=== PATIENT | female | born 1955 | race Two or more races ===

== ENCOUNTER 2018-12-15 12:00 | Inpatient (IN) | payer MEDICAID ==
[~2018-12-15] VITALS: Ht 165.1 cm; Wt 85.7 kg
[2018-12-15] VITALS (25 sets, daily range): BP systolic 81–134; BP diastolic 40–103
[~2018-12-15 12:00] MED LIST: ALBUTEROL2.5 MG/3 M INH; AMIKACIN S500 MG/2 M IVPB; CEFEPIME-D1 GM/50 ML IVPB; CLINDAMYCIN HC300 MG ORAL; COLACE100 MG/10 GT; CRANBERRY425 MG GT; DEPAKENE250 MG ORAL; DILANTIN-1125 MG/5 M GT; DIPHENHYDRAMINE25 M1 ORAL; DOCUSATE SODIU100 MG ORAL; DULCOLAX10 MG RC; FLEET ENEMA133 ML RECTAL; FOLIC ACID1 MG GT; KEPPRA500 M4 GT; LEVETIRACE100 MG/1 M GT; METOPROLOL TART50 M1 GT; METRONIDAZOLE500 MG ORAL; MILK OF MA400 MG/51 GT; MOM30 ML GT; MULTIVITAM9 MG/15 M1 GT; NEXIUM20 MG GT; NEXIUM40 MG GT; OMEPRAZOLE10 M1 GT; PHENOBARBITAL30 MG GT; PRO-AMATINE10 MG ORAL; PROMOD946 ML GT; SYNTHROID100 MCG GT; TYLENOL650 MG/20. GT; VALPROIC A500 MG/10 GT; VANCOMYCIN1 GM/2502 IVPB; VITAMIN C250 MG GT; VITAMIN C500 M1 GT; ZINC SULFATE220 M1 GT
[2018-12-15] MEDS ORDERED: Vancomycin 1.5 GM in NS 275 ML IVPB ONE (12:30)
[2018-12-15] MEDS ORDERED: Sodium Chloride 2,600 ML IVLG ONE (12:30)
[2018-12-15] MEDS ORDERED: Cefepime HCl 2 GM in NS 110 ML IV SCH (12:30)
[2018-12-15] MEDS ORDERED: Lidocaine 1% Plain 30 ml INJ ONE ×2 (12:37→12:38)
[2018-12-15 12:38] LABS: HEMATOCRIT 40.9 % (37.0-47.0); HEMOGLOBIN 13.4 G/DL (12.0-16.0); MEAN CORPUSCULAR VOLUME 91 FL (80-99); PLATELET COUNT 177 K/UL (150-450); RED BLOOD COUNT 4.49 M/UL (4.20-5.40); RED CELL DISTRIBUTION WIDTH 13.2 % (11.6-14.8); WHITE BLOOD COUNT 18.2 K/UL (4.8-10.8)
[2018-12-15 12:44] LABS: INR 0.9 (0.9-1.1)
[2018-12-15 12:53] LABS: ANION GAP 9 mmol/L (5-15); BLOOD UREA NITROGEN 15 mg/dL (7-18); CARBON DIOXIDE 27 MMOL/L (21-32); CHLORIDE 95 MMOL/L (98-107); CREATININE 0.9 MG/DL (0.55-1.30); POTASSIUM 3.9 MMOL/L (3.5-5.1); SODIUM 131 MMOL/L (136-145)
[2018-12-15 13:07] LABS: ALANINE AMINOTRANSFERASE 30 U/L (12-78); ALBUMIN 2.4 G/DL (3.4-5.0); ALBUMIN/GLOBULIN RATIO 0.4 (1.0-2.7); ALKALINE PHOSPHATASE 93 U/L (46-116); ASPARTATE AMINO TRANSFERASE 34 U/L (15-37); BILIRUBIN,TOTAL 0.3 MG/DL (0.2-1.0); CKMB < 0.5 NG/ML (0.0-3.6); CREATINE KINASE 70 U/L (26-308); PHOSPHORUS 2.1 MG/DL (2.5-4.9)
--- NOTE | 2018-12-15 13:08 | Emergency Room Report ---
History of Present Illness General Chief Complaint: Fever Source: EMS Present Illness HPI Patient is a 63-year-old female brought in by ambulance after increased fever and abdominal redness. Patient was noted to have prior history of chronic respiratory failure and tracheostomy tube as well as encephalopathy. Patient was noted to have temperature up to 102.3 at her facility associated with cellulitis area on the posterior trunk as well as the bilateral lower extremities. Patient was given Tylenol at 8 AM. Patient had been sent to the hospital for further evaluation of possible sepsis. 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, VRE Hx Neurological Problems: Yes Hx Cerebrovascular Accident: Yes Hx Seizures: Yes Hx Memory Loss: Yes Hx Concentration Difficulty: Yes Hx Speech Problem: Yes Hx Tremors: Yes Hx Vertigo: Yes Hx Dizziness: Yes Hx Syncope: Yes Hx Headaches: Yes Hx Dysphasia: Yes Hx Numbness: Yes Hx Weakness: Yes Hx Fatigue: Yes Review of Systems All Other Systems: negative except mentioned in HPI Physical Exam Vital Signs Date Time Temp Pulse Resp B/P (MAP) Pulse Ox O2 Delivery O2 Flow Rate FiO2 12/15/18 11:46 99.5 78 18 95 Trach Collar 5.0 General Appearance: obese, Chronically Ill ENT: moist mucus membranes, other - aphasic Neck: no bony tend, limited range of motion Respiratory: no retraction, rhonchi, other - shallow respirations Cardiovascular #1: regular rate, rhythm, edema - 1+ Gastrointestinal: soft, no guarding, no hernia, other - erythema to skin Genitourinary: no CVA tenderness Musculoskeletal: normal inspection, normal range of motion 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 Total critical care time excluding procedures approximately 45 minutes. Central Line Central Line : Consent: Emergent Central Line Lumen: triple Maximal Sterile Barrier Tech: yes cap, yes mask, yes sterile gown, yes sterile gloves, yes large sterile sheet, yes hand hygiene, yes chlorhexidine prep Central Line Postion: subclavian (R) Anesthesia: Lidocaine cc's of anesthesia: 4 Complications: none Central Line Post Position: sutured, good blood return, position confirmed w / CXR Attempts: Other - two Patient Tolerated: Well Complications: None Medical Decision Making Diagnostic Impression: Primary Impression: Severe sepsis Additional Impressions: Traumatic brain injury Pressure ulcer Chronic respiratory failure Abdominal wall cellulitis ER Course patient presented for fever and abdominal wall redness. Differential diagnosis include was not limited to cellulitis, necrotizing fasciitis, abdominal wall abscess among others. Because of complexity of patient's case laboratory testing and imaging studies were ordered. 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 Fever likely source appears to be the abdominal wall cellulitis. A CT the abdomen pelvis was ordered to evaluate for possible abdominal wall abscess or internal infection. Patient was given IV antibiotics and IV fluids due to hypotension. I placed a right central subclavian central line emergently due to lack of IV access and hypotension. Dr. Seb Mike was contacted for inpatient management. Labs Test 12/15/18 12:21 White Blood Count 18.2 K/UL (4.8-10.8) Red Blood Count 4.49 M/UL (4.20-5.40) Hemoglobin 13.4 G/DL (12.0-16.0) Hematocrit 40.9 % (37.0-47.0) Mean Corpuscular Volume 91 FL (80-99) Mean Corpuscular Hemoglobin 29.9 PG (27.0-31.0) Mean Corpuscular Hemoglobin Concent 32.8 G/DL (32.0-36.0) Red Cell Distribution Width 13.2 % (11.6-14.8) Platelet Count 177 K/UL (150-450) Mean Platelet Volume 10.3 FL (6.5-10.1) Neutrophils (%) (Auto) % (45.0-75.0) Lymphocytes (%) (Auto) % (20.0-45.0) Monocytes (%) (Auto) % (1.0-10.0) Eosinophils (%) (Auto) % (0.0-3.0) Basophils (%) (Auto) % (0.0-2.0) Differential Total Cells Counted 100 Neutrophils % (Manual) 66 % (45-75) Lymphocytes % (Manual) 12 % (20-45) Monocytes % (Manual) 13 % (1-10) Eosinophils % (Manual) 0 % (0-3) Basophils % (Manual) 0 % (0-2) Band Neutrophils 9 % (0-8) Platelet Estimate Adequate Platelet Morphology Normal Red Blood Cell Morphology Normal Prothrombin Time 10.0 SEC (9.30-11.50) Prothromb Time International Ratio 0.9 (0.9-1.1) Activated Partial Thromboplast Time 28 SEC (23-33) Sodium Level 131 MMOL/L (136-145) Potassium Level 3.9 MMOL/L (3.5-5.1) Chloride Level 95 MMOL/L (98-107) Carbon Dioxide Level 27 MMOL/L (21-32) Anion Gap 9 mmol/L (5-15) Blood Urea Nitrogen 15 mg/dL (7-18) Creatinine 0.9 MG/DL (0.55-1.30) Estimat Glomerular Filtration Rate > 60 mL/min (>60) Glucose Level 140 MG/DL (74-106) Calcium Level 9.0 MG/DL (8.5-10.1) Troponin I 0.000 ng/mL (0.000-0.056) EKG Diagnostic Results Rate: normal - 77 Rhythm: NSR ST Segments: no acute changes Last Vital Signs Date Time Temp Pulse Resp B/P (MAP) Pulse Ox O2 Delivery O2 Flow Rate FiO2 12/15/18 12:22 72 22 Trach Collar 15.0 12/15/18 11:46 99.5 95 Status: improved Disposition: ADMITTED INPATIENT Condition: Critical Referrals: Leigh Ch MD (PCP) Daniel Wong MD December 15, 2018 13:07
--- NOTE | 2018-12-15 13:14 | Diagnostic Imaging Report ---
Indication: Dyspnea Comparison: 02/16/2017 A single view chest radiograph was obtained. Findings: Tracheostomy again noted. There is a right subclavian line in good position with the tip at the junction of SVC right atrium. There is no pneumothorax. Basilar atelectasis is noted and mild. Bones are osteopenic. IMPRESSION: Mild basal atelectasis.
[2018-12-15] MEDS ORDERED: Isovue-300 100ml vial INJ PRN (13:15)
[2018-12-15] MEDS ORDERED: Albuterol/Ipratropium 3ml neb HHN PRN (14:00)
[2018-12-15] MEDS ORDERED: Morphine Sulfate 2mg/ml Inj(IV/IM USE ONLY) IVP PRN (14:00)
[2018-12-15] MEDS ORDERED: Miralax 17gm pkt ORAL PRN (14:00)
[2018-12-15 14:23] LABS: APPEARANCE,URINE CLEAR; BILIRUBIN, URINE NEGATIVE (NEGATIVE); GLUCOSE, URINE (UA) NEGATIVE (NEGATIVE); KETONES,URINE NEGATIVE (NEGATIVE); LEUKOCYTE ESTERASE ,URINE 1+ (NEGATIVE); NITRITE,URINE NEGATIVE (NEGATIVE); PH,URINE 7 (4.5-8.0); PROTEIN,URINE 3+ (NEGATIVE); UROBILINOGEN,URINE NORMAL MG/DL (0.0-1.0)
[2018-12-15 14:29] LABS: COLOR,URINE YELLOW
--- NOTE | 2018-12-15 16:08 | Diagnostic Imaging Report ---
Indication: Abdominal pain Technique: Continuous helical transaxial imaging of the abdomen and pelvis was obtained from the lung bases to the pubic symphysis during intravenous contrast administration. Coronal 2-D reformats were also obtained. Study obtained in a Siemens sensation [address] Automatic Exposure Control was utilized. Total Dose length Product (DLP): [address] Dose Index Volume (CTDIvol): 0.15, 19.51 mGy Comparison: 01/10/2015 Findings: There is consolidation at the lung bases bilaterally. Trace bilateral pleural effusions are present. There is considerable artifact limiting evaluation of the lower chest and upper abdomen. Calcifications are seen within the spleen. Pancreas is grossly unremarkable. Questionable gallstone. Gallbladder is mildly distended. Punctate calcification noted within the right kidney which may be a small stone. There is no hydronephrosis. Gastrostomy is present in good position. The appendix is not definitely seen. There are no secondary signs of acute appendicitis. Appendix may have been removed. Aortoiliac calcifications are present. There is no free fluid or free air. There is no evidence of bowel obstruction. Atrophic heterogeneous uterus noted. Small inguinal nodes are present bilaterally. There is a implanted calvarial bone flap demonstrated within the subcutaneous fat of the right lower quadrant abdomen wall. IMPRESSION: Patchy posterior basilar consolidation. Consider pneumonia. Small bilateral pleural effusions noted. Artifact limiting evaluation of the upper abdomen. Possible tiny nonobstructive stone in the right kidney. Gastrostomy in good position. Question of a tiny gallstone. Heterogeneous uterus nonspecific Calvarial bone flap in the right lower quadrant of the abdomen. The CT scanner at [facility] is accredited by the [employer] and the scans are performed using dose optimization techniques as appropriate to a performed exam including Automatic Exposure control.
[2018-12-15] MEDS: Norepinephrine 4mg in D5W 250ml IV SCH ×2 (19:29→22:15)
[2018-12-15] MEDS: Dyna-Hex 2% Top Sol 2oz TOPIC SCH (20:16)
[2018-12-15] MEDS: Heparin 5000 units/ml inj SUBQ SCH (20:17)
[2018-12-16] VITALS (52 sets, daily range): BP systolic 83–129; BP diastolic 44–84
--- NOTE | 2018-12-16 | History and Physical Report ---
DATE OF ADMISSION: 12/15/2018 CONSULTANTS: 1. Leigh Ch M.D. 2. Valentin Mejia M.D. 3. Vaughn Sahu M.D. CHIEF COMPLAINT: Respiratory failure, fever, sepsis, abdominal cellulitis, and shock. BRIEF HISTORY: This is a 63-year-old female from [facility] presents with fever, was found to have sepsis, white count 18, abdominal cellulitis, in the ER, being admitted to intensive care unit shortly. Currently, trach, vent, altered, lethargic in bed in the ER. REVIEW OF SYSTEMS: Unavailable. PAST MEDICAL HISTORY: Respiratory failure, chronic obstructive pulmonary disease, diabetes, seizure, and traumatic brain injury. PAST SURGICAL HISTORY: Trach. MEDICATIONS: Include cefepime, vancomycin, heparin, norepinephrine, Tylenol, morphine, Zofran, and temazepam. ALLERGIES: Denies. SOCIAL HISTORY: No smoking. No alcohol. No drug abuse. OBJECTIVE: GENERAL: Lethargic in bed, nonverbal. VITAL SIGNS: Temperature is 99, pulse 78, respirations 29, and blood pressure 97/52 to 70/37. CARDIOVASCULAR: No murmurs. LUNGS: Poor air exchange. ABDOMEN: Bowel sounds distant. EXTREMITIES: Show no cyanosis, clubbing, or edema. NEUROLOGIC: The patient is flaccid in bed. Not following directions. LABORATORY AND DIAGNOSTIC STUDIES: White count 18, otherwise CBC is normal. BMP shows sodium 131, chloride 95, and glucose 140. Troponin 0.00. is 8.3. BNP is 360. Albumin 2.4. INR 0.9 and PTT 28. Urine tox, phenobarb is 15.8. Urinalysis show 1+ leukocyte esterase. ASSESSMENT: 1. Respiratory failure. 2. UTI. 3. Sepsis. 4. Shock. 5. Fever. 6. Leukocytosis. 7. Respiratory failure. 8. Trach and vent. 9. Malnutrition. 10. Abdominal cellulitis. 11. Chronic obstructive pulmonary disease. 12. Diabetes. 13. Seizure. 14. Traumatic brain injury. PLAN: 1. Vent per Pulmonary. 2. Antibiotics per Infectious Disease. 3. Wound care. 4. Blood pressure, blood sugar, and seizure control. 5. Dietary followup. 6. CBC and BMP in the morning. 7. We will continue to follow the patient. Seb Mike D.O. DR: OLIVIER JOB#: [id number] CC:
[2018-12-16] MEDS: Cefepime HCl 2 GM in D5W 110 ML IV SCH (00:17)
[2018-12-16] MEDS ORDERED: Vancomycin 1 GM in D5W 275 ML IV SCH (00:30)
[2018-12-16] MEDS: Vancomycin 750mg/NS 275ml IVPB SCH ×4 (00:58→13:40)
[2018-12-16 05:26] LABS: HEMATOCRIT 36.8 % (37.0-47.0); MEAN CORPUSCULAR VOLUME 93 FL (80-99); PLATELET COUNT 154 K/UL (150-450); RED BLOOD COUNT 3.98 M/UL (4.20-5.40); RED CELL DISTRIBUTION WIDTH 13.4 % (11.6-14.8); WHITE BLOOD COUNT 18.4 K/UL (4.8-10.8)
[2018-12-16 05:39] LABS: ALANINE AMINOTRANSFERASE 27 U/L (12-78); ALBUMIN 1.9 G/DL (3.4-5.0); ALBUMIN/GLOBULIN RATIO 0.4 (1.0-2.7); ALKALINE PHOSPHATASE 92 U/L (46-116); ANION GAP 9 mmol/L (5-15); ASPARTATE AMINO TRANSFERASE 30 U/L (15-37); BILIRUBIN,TOTAL 0.4 MG/DL (0.2-1.0); BLOOD UREA NITROGEN 9 mg/dL (7-18); CARBON DIOXIDE 26 MMOL/L (21-32); CHLORIDE 101 MMOL/L (98-107); CREATININE 0.7 MG/DL (0.55-1.30); POTASSIUM 3.7 MMOL/L (3.5-5.1); SODIUM 136 MMOL/L (136-145)
[2018-12-16] MEDS: Norepinephrine 4mg in D5W 250ml IV SCH (05:50)
[2018-12-16] MEDS: Heparin 5000 units/ml inj SUBQ SCH ×2 (09:42→20:25)
--- NOTE | 2018-12-16 10:40 | Consultation ---
History of Present Illness General Date patient seen: December 16, 2018 Chief Complaint: Fever Present Illness HPI 63-year-old female with hx of vegetative state, anoxic encephalopathy, chronic vent, PEG, prison resident brought in by ambulance with cc of fever and abdominal redness. She had a temperature up to 102.3 at her facility associated with cellulitis area on the posterior trunk as well as the bilateral lower extremities. Patient was sent to the hospital for further evaluation of possible sepsis. She was hypotensive on arrival and was started on Levophed drip. Allergies: Coded Allergies: No Known Allergies (Unverified , 04/14/14) Medication History Scheduled Ascorbic Acid* (Vitamin C*), 500 MG GT DAILY, (Reported) Cefepime Hcl/D5w (Cefepime-Dextrose 1 Gm/50 Ml), 1 GM IVPB EVERY 12 HOURS Cranberry Extract (Cranberry), 425 MG GT DAILY, (Reported) Docusate Sodium (Docusate Sodium), 100 MG GT DAILY, (Reported) Esomeprazole Magnesium (Nexium), 40 MG GT DAILY, (Reported) Folic Acid* (Folic Acid*), 1 MG GT DAILY, (Reported) Levetiracetam (Keppra), 1,500 MG GT EVERY 12 HOURS, (Reported) Levothyroxine Sodium* (Synthroid*), 100 MCG GT DAILY, (Reported) Magnesium Hydroxide* (Milk Of Magnesia*), 30 ML GT DAILY, (Reported) Midodrine (Midodrine HCl), 10 MG ORAL TID, (Reported) Multivits W-Min/Ferrous Gluc (Multivitamin-Mineral Liquid), 30 ML GT DAILY, ( Reported) Na Phos,M-B/Na Phos,Di-Ba* (Fleet Enema*), 133 ML RECTAL DAILY, (Reported) Phenobarbital* (Phenobarbital*), 40 MG GT EVERY 12 HOURS, (Reported) Protein Supplement (Promod), 30 ML GT TWICE A DAY, (Reported) Valproate Sodium (Valproic Acid), 800 MG GT EVERY 8 HOURS, (Reported) Zinc Sulfate (Zinc Sulfate*), 220 MG GT DAILY, (Reported) Scheduled PRN Acetaminophen (Acetaminophen), 650 MG GT Q6H PRN for Prn Headache/Temp > 101, ( Reported) Albuterol Sulfate* (Albuterol Sulfate Hhn*), 3 ML INH Q6H PRN for Shortness of Breath, (Reported) Diphenhydramine Hcl* (Diphenhydramine Hcl*), 50 MG ORAL DAILY PRN for Itching, ( Reported) Miscellaneous Medications Bisacodyl (Dulcolax), 10 MG RC, (Reported) Patient History Healthcare decision maker Resuscitation status Advanced Directive on File Past Medical/Surgical History Past Medical/Surgical History: (1) Hypothyroidism (2) COPD (chronic obstructive pulmonary disease) (3) Seizure disorder (4) Tracheostomy dependent (5) Chronic respiratory failure Review of Systems All Other Systems: negative except mentioned in HPI Physical Exam General Appearance: WD/WN Lines, tubes and drains: trach, gtube HEENT: normocephalic, atraumatic Neck: non-tender, normal alignment Respiratory/Chest: chest wall non-tender, lungs clear Cardiovascular/Chest: normal rate Abdomen: normal bowel sounds, non tender Genitourinary/Rectal: normal genital exam Extremities: normal range of motion Skin Exam: normal pigmentation Neurologic: unresponsiveness Last 24 Hour Vital Signs Date Time Temp Pulse Resp B/P (MAP) Pulse Ox O2 Delivery O2 Flow Rate FiO2 12/16/18 09:00 86 30 111/62 (78) 100 12/16/18 08:30 98.9 92 38 121/64 (83) 100 12/16/18 08:00 97 12/16/18 08:00 12.0 40 12/16/18 08:00 T-piece 12.0 12/16/18 08:00 88 32 99/52 (68) 100 12/16/18 07:30 100.6 94 28 100/52 (68) 100 12/16/18 07:00 114/63 12/16/18 07:00 90 35 108/63 (78) 100 12/16/18 06:50 100 T-piece 12.0 40 12/16/18 06:50 T-piece 12.0 40 12/16/18 06:50 96 30 T-piece 12.0 40 12/16/18 06:30 75 26 90/50 (63) 100 12/16/18 06:00 87 33 112/48 (69) 100 12/16/18 06:00 112/48 12/16/18 05:50 106/56 12/16/18 05:30 81 26 106/56 (73) 97 12/16/18 05:00 80 35 110/58 (75) 95 12/16/18 04:30 71 33 106/60 (75) 100 12/16/18 04:00 12.0 40 12/16/18 04:00 T-piece 12.0 12/16/18 04:00 79 12/16/18 04:00 99.6 71 27 105/60 (75) 100 12/16/18 03:30 72 32 107/61 (76) 100 12/16/18 03:15 76 31 114/61 (78) 100 12/16/18 03:00 84 20 129/63 (85) 97 12/16/18 02:30 57 30 87/44 (58) 98 12/16/18 02:00 67 35 93/47 (62) 97 12/16/18 02:00 97/47 12/16/18 01:30 67 34 92/48 (63) 97 12/16/18 01:24 T-piece 12.0 40 12/16/18 01:24 98 T-piece 12.0 40 12/16/18 01:24 70 20 T-piece 12.0 40 12/16/18 01:00 76 24 102/53 (69) 97 12/16/18 01:00 83/46 12/16/18 00:30 76 26 84/50 (61) 92 12/16/18 00:00 12.0 40 12/16/18 00:00 84/50 12/16/18 00:00 99.4 64 30 83/48 (60) 94 12/16/18 00:00 71 12/16/18 00:00 T-piece 12.0 12/15/18 23:30 76 36 92/56 (68) 94 12/15/18 23:00 90/46 12/15/18 23:00 65 26 81/42 (55) 99 12/15/18 22:53 99.5 12/15/18 22:30 68 26 83/44 (57) 100 12/15/18 22:15 73 26 94/78 (83) 100 12/15/18 22:15 86/46 12/15/18 22:00 100.2 66 25 86/46 (59) 100 12/15/18 21:30 68 23 99/51 (67) 100 12/15/18 21:00 65 28 84/40 (55) 100 12/15/18 21:00 84/51 12/15/18 20:30 73 29 108/46 (66) 100 12/15/18 20:00 99.9 67 28 120/103 (109) 100 12/15/18 20:00 12.0 40 12/15/18 20:00 93/55 12/15/18 20:00 63 12/15/18 19:45 T-piece 12.0 12/15/18 19:30 72 29 107/63 (78) 100 12/15/18 19:29 90/60 12/15/18 19:15 84 25 113/60 (77) 99 12/15/18 19:14 100 T-piece 12.0 40 12/15/18 19:14 T-piece 12.0 40 12/15/18 19:00 95/50 12/15/18 19:00 64 27 95/50 (65) 100 12/15/18 18:30 67 23 118/65 (82) 100 12/15/18 18:00 66 25 96/48 (64) 100 12/15/18 18:00 96/48 12/15/18 17:45 67 26 96/52 (67) 100 12/15/18 17:31 95 20 T-piece 12.0 40 12/15/18 17:31 T-piece 12.0 40 12/15/18 17:31 100 T-piece 12.0 40 12/15/18 17:30 70 27 113/50 (71) 100 12/15/18 17:30 69 25 113/50 (71) 100 12/15/18 17:15 90 19 134/59 (84) 99 12/15/18 17:00 67 22 107/58 (74) 100 12/15/18 17:00 107/58 12/15/18 16:45 72 23 105/60 (75) 100 12/15/18 16:30 82 27 110/61 (77) 100 12/15/18 16:18 98.7 86 32 83/49 (60) 100 12/15/18 16:00 83/49 12/15/18 16:00 12.0 40 12/15/18 16:00 Endotracheal Tube 10.0 12/15/18 15:54 99.2 74 24 97/52 100 Trach Collar 10.0 12/15/18 15:44 97/50 12/15/18 15:29 98/58 12/15/18 15:24 92/63 12/15/18 15:19 86/45 12/15/18 15:14 93/48 12/15/18 15:09 100/54 12/15/18 15:04 89/40 12/15/18 15:00 74 24 91/57 100 Trach Collar 10.0 12/15/18 14:59 91/57 12/15/18 14:54 71/37 12/15/18 14:49 78/37 12/15/18 14:00 78 29 97/52 100 Trach Collar 10.0 12/15/18 13:00 71 30 93/46 100 Trach Collar 10.0 12/15/18 12:22 72 22 Trach Collar 15.0 12/15/18 12:00 99.2 74 36 99/60 96 Trach Collar 10.0 12/15/18 11:46 99.5 78 18 95 Trach Collar 5.0 Intake and Output 12/15/18 12/16/18 19:00 07:00 Intake Total 3105 ml 1270.0 ml Output Total 120 ml 640 ml Balance 2985 ml 630.0 ml Intake Free Water 150 ml IV Total 3105 ml 760.0 ml Tube Feeding 360 ml Output Urine Total 120 ml 640 ml # Voids 2 # Bowel Movements 1 Laboratory Tests Test 12/15/18 12:21 12/15/18 13:15 12/15/18 13:28 12/16/18 04:50 White Blood Count 18.2 K/UL (4.8-10.8) H 18.4 K/UL (4.8-10.8) H Red Blood Count 4.49 M/UL (4.20-5.40) 3.98 M/UL (4.20-5.40) L Hemoglobin 13.4 G/DL (12.0-16.0) 12.0 G/DL (12.0-16.0) Hematocrit 40.9 % (37.0-47.0) 36.8 % (37.0-47.0) L Mean Corpuscular Volume 91 FL (80-99) 93 FL (80-99) Mean Corpuscular Hemoglobin 29.9 PG (27.0-31.0) 30.3 PG (27.0-31.0) Mean Corpuscular Hemoglobin Concent 32.8 G/DL (32.0-36.0) 32.7 G/DL (32.0-36.0) Red Cell Distribution Width 13.2 % (11.6-14.8) 13.4 % (11.6-14.8) Platelet Count 177 K/UL (150-450) 154 K/UL (150-450) Mean Platelet Volume 10.3 FL (6.5-10.1) H 8.6 FL (6.5-10.1) Neutrophils (%) (Auto) % (45.0-75.0) % (45.0-75.0) Lymphocytes (%) (Auto) % (20.0-45.0) % (20.0-45.0) Monocytes (%) (Auto) % (1.0-10.0) % (1.0-10.0) Eosinophils (%) (Auto) % (0.0-3.0) % (0.0-3.0) Basophils (%) (Auto) % (0.0-2.0) % (0.0-2.0) Differential Total Cells Counted 100 100 Neutrophils % (Manual) 66 % (45-75) 80 % (45-75) H Lymphocytes % (Manual) 12 % (20-45) L 9 % (20-45) L Monocytes % (Manual) 13 % (1-10) H 10 % (1-10) Eosinophils % (Manual) 0 % (0-3) 0 % (0-3) Basophils % (Manual) 0 % (0-2) 0 % (0-2) Band Neutrophils 9 % (0-8) H 1 % (0-8) Platelet Estimate Adequate Adequate Platelet Morphology Normal Normal Red Blood Cell Morphology Normal Normal Prothrombin Time 10.0 SEC (9.30-11.50) Prothromb Time International Ratio 0.9 (0.9-1.1) Activated Partial Thromboplast Time 28 SEC (23-33) Sodium Level 131 MMOL/L (136-145) L 136 MMOL/L (136-145) Potassium Level 3.9 MMOL/L (3.5-5.1) 3.7 MMOL/L (3.5-5.1) Chloride Level 95 MMOL/L (98-107) L 101 MMOL/L (98-107) Carbon Dioxide Level 27 MMOL/L (21-32) 26 MMOL/L (21-32) Anion Gap 9 mmol/L (5-15) 9 mmol/L (5-15) Blood Urea Nitrogen 15 mg/dL (7-18) 9 mg/dL (7-18) Creatinine 0.9 MG/DL (0.55-1.30) 0.7 MG/DL (0.55-1.30) Estimat Glomerular Filtration Rate > 60 mL/min (>60) > 60 mL/min (>60) Glucose Level 140 MG/DL (74-106) H 158 MG/DL (74-106) H Lactic Acid Level 1.90 mmol/L (0.4-2.0) Calcium Level 9.0 MG/DL (8.5-10.1) 8.0 MG/DL (8.5-10.1) L Phosphorus Level 2.1 MG/DL (2.5-4.9) L Magnesium Level 2.3 MG/DL (1.8-2.4) Total Bilirubin 0.3 MG/DL (0.2-1.0) 0.4 MG/DL (0.2-1.0) Aspartate Amino Transf (AST/SGOT) 34 U/L (15-37) 30 U/L (15-37) Alanine Aminotransferase (ALT/SGPT) 30 U/L (12-78) 27 U/L (12-78) Alkaline Phosphatase 93 U/L (46-116) 92 U/L (46-116) Total Creatine Kinase 70 U/L (26-308) Creatine Kinase MB < 0.5 NG/ML (0.0-3.6) Creatine Kinase MB Relative Index Troponin I 0.000 ng/mL (0.000-0.056) Pro-B-Type Natriuretic Peptide 360 pg/mL (0-125) H Total Protein 8.3 G/DL (6.4-8.2) H 6.9 G/DL (6.4-8.2) Albumin 2.4 G/DL (3.4-5.0) L 1.9 G/DL (3.4-5.0) L Globulin 5.9 g/dL 5.0 g/dL Albumin/Globulin Ratio 0.4 (1.0-2.7) L 0.4 (1.0-2.7) L Phenobarbital Level 15.8 ug/mL (15-40) Arterial Blood pH 7.458 (7.350-7.450) Arterial Blood Partial Pressure CO2 35.7 mmHg (35.0-45.0) Arterial Blood Partial Pressure O2 280.1 mmHg (75.0-100.0) H Arterial Blood HCO3 24.7 mmol/L (22.0-26.0) Arterial Blood Oxygen Saturation 99.2 % (95-100) Arterial Blood Base Excess 1.1 (-2-2) Bennie Test Positive Urine Color Yellow Urine Appearance Clear Urine pH 7 (4.5-8.0) Urine Specific [place] 1.005 (1.005-1.035) Urine Protein 3+ (NEGATIVE) H Urine Glucose (UA) Negative (NEGATIVE) Urine Ketones Negative (NEGATIVE) Urine Blood 4+ (NEGATIVE) H Urine Nitrite Negative (NEGATIVE) Urine Bilirubin Negative (NEGATIVE) Urine Urobilinogen Normal MG/DL (0.0-1.0) Urine Leukocyte Esterase 1+ (NEGATIVE) H Urine RBC 20-30 /HPF (0 - 2) H Urine WBC 2-4 /HPF (0 - 2) Urine Squamous Epithelial Cells Few /LPF (NONE/OCC) Urine Bacteria Few /HPF (NONE) Height (Feet): 5 Height (Inches): 5.00 Weight (Pounds): 189 Medications Current Medications Medications (Trade) Dose Ordered Sig/Neo Route PRN Reason Start Time Stop Time Status Last Admin Dose Admin Acetaminophen (Tylenol) 650 mg Q4H PRN ORAL fever 12/15/18 14:00 01/14/19 13:59 12/15/18 22:23 Albuterol/ Ipratropium (Albuterol/ Ipratropium) 3 ml Q4H PRN HHN Shortness of Breath 12/15/18 14:00 12/20/18 13:59 Cefepime HCl 2 gm/ Dextrose 110 ml @ 220 mls/hr Q24H IV 12/16/18 01:00 12/23/18 00:59 12/16/18 00:17 Chlorhexidine Gluconate (Cathleen-Hex 2%) 1 applic DAILY@2000 TOPIC 12/15/18 20:00 01/14/19 19:59 12/15/18 20:16 Heparin Sodium (Porcine) (Heparin 5000 units/ml) 5,000 units EVERY 12 HOURS SUBQ 12/15/18 21:00 01/14/19 20:59 12/16/18 09:42 Morphine Sulfate (Morphine Sulfate) 2 mg Q4H PRN IVP Moderate Pain (Pain Scale 4-6) 12/15/18 14:00 12/22/18 13:59 Norepinephrine Bitartrate 4 mg/ Dextrose 250 ml @ 0 mls/hr Q24H IV 12/15/18 19:07 01/14/19 19:06 12/16/18 05:50 Ondansetron HCl (Zofran) 4 mg Q6H PRN IVP Nausea & Vomiting 12/15/18 14:00 01/14/19 13:59 Polyethylene Glycol (Miralax) 17 gm DAILYPRN PRN ORAL Constipation 12/15/18 14:00 01/14/19 13:59 Temazepam (Restoril) 15 mg HSPRN PRN ORAL Insomnia 12/15/18 14:00 12/22/18 13:59 Vancomycin HCl (Vanco rx to dose) 1 ea DAILY PRN MISC PER PHARMACY 12/15/18 14:15 01/14/19 14:14 Vancomycin HCl 750 mg/Sodium Chloride 275 ml @ 183.333 mls/hr Q12HR@0100,1300 IVPB 12/16/18 01:00 12/21/18 00:59 12/16/18 00:58 Assessment/Plan Problem List: (1) Septic shock ICD Codes: A41.9 - Septic shock; R65.21 - Severe sepsis with septic shock SNOMED: 26445815 (2) Acute on chronic respiratory failure ICD Codes: J96.20 - Acute on chronic respiratory failure SNOMED: 68980149 (3) Pneumonia ICD Codes: J18.9 - Pneumonia SNOMED: 343836883 (4) Chronic respiratory failure ICD Codes: J96.10 - Chronic respiratory failure SNOMED: 19591011 (5) UTI (lower urinary tract infection) ICD Codes: N39.0 - UTI (lower urinary tract infection) SNOMED: 3827757 (6) COPD (chronic obstructive pulmonary disease) ICD Codes: J44.9 - Chronic obstructive pulmonary disease, unspecified SNOMED: 62253565 (7) Decubital ulcer ICD Codes: L89.90 - Pressure ulcer of unspecified site, unspecified stage SNOMED: 229506036 (8) Seizure disorder ICD Codes: G40.909 - Seizure disorder SNOMED: 382614817 Respiratory: monitor respiratory rate, adjust FIO2, CXR Cardiac: continue to monitor HR/BP Renal: F/U I&O, keep IV fluid Infectious Disease: check cultures, continue antibiotics Gastrointestinal: continue feedings/current rate Endocrine: monitor blood sugar Hematologic: transfuse if hgb<8.5 Neurologic: PRN Ativan, PRN Morphine, keep patient comfortable Affect: PRN ativan Prophylaxis: Protonix Disposition: keep in ICU Notes Reviewed: carrot tier, cardio Discussed with: nurses, consultants, case advocate Leigh Ch MD December 16, 2018 10:40
[2018-12-16] MEDS ORDERED: Amikacin Rx to dose MISC PRN (10:45)
[2018-12-16] MEDS ORDERED: Amikacin 1,000 MG in NS 110 ML IV SCH (14:00)
--- NOTE | 2018-12-16 14:56 | General Progress Note ---
Assessment/Plan Problem List: (1) UTI (lower urinary tract infection) ICD Codes: N39.0 - UTI (lower urinary tract infection) SNOMED: 8105931 (2) Septic shock ICD Codes: A41.9 - Septic shock; R65.21 - Severe sepsis with septic shock SNOMED: 72816935 (3) Hypotension ICD Codes: I95.9 - Hypotension SNOMED: 09755252 (4) COPD (chronic obstructive pulmonary disease) ICD Codes: J44.9 - Chronic obstructive pulmonary disease, unspecified SNOMED: 23953910 (5) Tracheostomy dependent ICD Codes: Z93.0 - Tracheostomy dependent SNOMED: 691701255 (6) Chronic respiratory failure ICD Codes: J96.10 - Chronic respiratory failure SNOMED: 89809187 (7) Abdominal wall cellulitis ICD Codes: L03.311 - Cellulitis of abdominal wall SNOMED: 91245791 (8) Seizure disorder ICD Codes: G40.909 - Seizure disorder SNOMED: 987386634 Status: unchanged Assessment/Plan: vent abx wound care bp bs seizure control cbc bmp in am Subjective Constitutional: Reports: weakness Allergies: Coded Allergies: No Known Allergies (Unverified , 04/14/14) All Systems: reviewed and negative except above Subjective trach vent altered in icu Objective Last 24 Hour Vital Signs Date Time Temp Pulse Resp B/P (MAP) Pulse Ox O2 Delivery O2 Flow Rate FiO2 12/16/18 14:30 64 29 100/52 (68) 100 12/16/18 14:00 67 30 91/46 (61) 100 12/16/18 14:00 91/46 12/16/18 13:30 100.3 68 32 86/45 (59) 100 12/16/18 13:00 86/48 12/16/18 12:30 T-piece 12.0 40 12/16/18 12:30 100 T-piece 12.0 40 12/16/18 12:00 68 12/16/18 12:00 T-piece 12.0 12/16/18 12:00 12.0 40 12/16/18 12:00 97/49 12/16/18 12:00 78 31 91/48 (62) 100 12/16/18 11:30 78 26 109/69 (82) 100 12/16/18 10:30 81 27 103/54 (70) 100 12/16/18 09:00 86 30 111/62 (78) 100 12/16/18 08:30 98.9 92 38 121/64 (83) 100 12/16/18 08:00 97 12/16/18 08:00 12.0 40 12/16/18 08:00 T-piece 12.0 12/16/18 08:00 88 32 99/52 (68) 100 12/16/18 07:30 100.6 94 28 100/52 (68) 100 12/16/18 07:00 114/63 12/16/18 07:00 90 35 108/63 (78) 100 12/16/18 06:50 100 T-piece 12.0 40 12/16/18 06:50 T-piece 12.0 40 12/16/18 06:50 96 30 T-piece 12.0 40 12/16/18 06:30 75 26 90/50 (63) 100 12/16/18 06:00 87 33 112/48 (69) 100 12/16/18 06:00 112/48 12/16/18 05:50 106/56 12/16/18 05:30 81 26 106/56 (73) 97 12/16/18 05:00 80 35 110/58 (75) 95 12/16/18 04:30 71 33 106/60 (75) 100 12/16/18 04:00 12.0 40 12/16/18 04:00 T-piece 12.0 12/16/18 04:00 79 12/16/18 04:00 99.6 71 27 105/60 (75) 100 12/16/18 03:30 72 32 107/61 (76) 100 12/16/18 03:15 76 31 114/61 (78) 100 12/16/18 03:00 84 20 129/63 (85) 97 12/16/18 02:30 57 30 87/44 (58) 98 12/16/18 02:00 67 35 93/47 (62) 97 12/16/18 02:00 97/47 12/16/18 01:30 67 34 92/48 (63) 97 12/16/18 01:24 T-piece 12.0 40 12/16/18 01:24 98 T-piece 12.0 40 12/16/18 01:24 70 20 T-piece 12.0 40 12/16/18 01:00 76 24 102/53 (69) 97 12/16/18 01:00 83/46 12/16/18 00:30 76 26 84/50 (61) 92 12/16/18 00:00 12.0 40 12/16/18 00:00 84/50 12/16/18 00:00 99.4 64 30 83/48 (60) 94 12/16/18 00:00 71 12/16/18 00:00 T-piece 12.0 12/15/18 23:30 76 36 92/56 (68) 94 12/15/18 23:00 90/46 12/15/18 23:00 65 26 81/42 (55) 99 12/15/18 22:53 99.5 12/15/18 22:30 68 26 83/44 (57) 100 12/15/18 22:15 73 26 94/78 (83) 100 12/15/18 22:15 86/46 12/15/18 22:00 100.2 66 25 86/46 (59) 100 12/15/18 21:30 68 23 99/51 (67) 100 12/15/18 21:00 65 28 84/40 (55) 100 12/15/18 21:00 84/51 12/15/18 20:30 73 29 108/46 (66) 100 12/15/18 20:00 99.9 67 28 120/103 (109) 100 12/15/18 20:00 12.0 40 12/15/18 20:00 93/55 12/15/18 20:00 63 12/15/18 19:45 T-piece 12.0 12/15/18 19:30 72 29 107/63 (78) 100 12/15/18 19:29 90/60 12/15/18 19:15 84 25 113/60 (77) 99 12/15/18 19:14 100 T-piece 12.0 40 12/15/18 19:14 T-piece 12.0 40 12/15/18 19:00 95/50 12/15/18 19:00 64 27 95/50 (65) 100 12/15/18 18:30 67 23 118/65 (82) 100 12/15/18 18:00 66 25 96/48 (64) 100 12/15/18 18:00 96/48 12/15/18 17:45 67 26 96/52 (67) 100 12/15/18 17:31 95 20 T-piece 12.0 40 12/15/18 17:31 T-piece 12.0 40 12/15/18 17:31 100 T-piece 12.0 40 12/15/18 17:30 70 27 113/50 (71) 100 12/15/18 17:30 69 25 113/50 (71) 100 12/15/18 17:15 90 19 134/59 (84) 99 12/15/18 17:00 67 22 107/58 (74) 100 12/15/18 17:00 107/58 12/15/18 16:45 72 23 105/60 (75) 100 12/15/18 16:30 82 27 110/61 (77) 100 12/15/18 16:18 98.7 86 32 83/49 (60) 100 12/15/18 16:00 83/49 12/15/18 16:00 12.0 40 12/15/18 16:00 Endotracheal Tube 10.0 12/15/18 15:54 99.2 74 24 97/52 100 Trach Collar 10.0 12/15/18 15:44 97/50 12/15/18 15:29 98/58 12/15/18 15:24 92/63 12/15/18 15:19 86/45 12/15/18 15:14 93/48 12/15/18 15:09 100/54 12/15/18 15:04 89/40 12/15/18 15:00 74 24 91/57 100 Trach Collar 10.0 12/15/18 14:59 91/57 Intake and Output 12/15/18 12/16/18 19:00 07:00 Intake Total 3105 ml 1270.0 ml Output Total 120 ml 640 ml Balance 2985 ml 630.0 ml Intake Free Water 150 ml IV Total 3105 ml 760.0 ml Tube Feeding 360 ml Output Urine Total 120 ml 640 ml # Voids 2 # Bowel Movements 1 Laboratory Tests 12/16/18 04:50: White Blood Count 18.4H, Red Blood Count 3.98L, Hemoglobin 12.0, Hematocrit 36.8L, Mean Corpuscular Volume 93, Mean Corpuscular Hemoglobin 30.3, Mean Corpuscular Hemoglobin Concent 32.7, Red Cell Distribution Width 13.4, Platelet Count 154, Mean Platelet Volume 8.6, Neutrophils (%) (Auto) , Lymphocytes (%) ( Auto) , Monocytes (%) (Auto) , Eosinophils (%) (Auto) , Basophils (%) (Auto) , Differential Total Cells Counted 100, Neutrophils % (Manual) 80H, Lymphocytes % (Manual) 9L, Monocytes % (Manual) 10, Eosinophils % (Manual) 0, Basophils % ( Manual) 0, Band Neutrophils 1, Platelet Estimate Adequate, Platelet Morphology Normal, Red Blood Cell Morphology Normal, Sodium Level 136, Potassium Level 3.7 , Chloride Level 101, Carbon Dioxide Level 26, Anion Gap 9, Blood Urea Nitrogen 9, Creatinine 0.7, Estimat Glomerular Filtration Rate > 60, Glucose Level 158H, Calcium Level 8.0L, Total Bilirubin 0.4, Aspartate Amino Transf (AST/SGOT) 30, Alanine Aminotransferase (ALT/SGPT) 27, Alkaline Phosphatase 92, Total Protein 6.9, Albumin 1.9L, Globulin 5.0, Albumin/Globulin Ratio 0.4L Height (Feet): 5 Height (Inches): 5.00 Weight (Pounds): 189 General Appearance: lethargic EENT: normal ENT inspection Neck: normal alignment Cardiovascular: normal peripheral pulses, normal rate, regular rhythm Respiratory/Chest: chest wall non-tender, lungs clear, normal breath sounds Abdomen: normal bowel sounds, non tender, soft Extremities: normal inspection Edema: no edema noted Arm (L), no edema noted Arm (R), no edema noted Leg (L), no edema noted Leg (R), no edema noted Pedal (L), no edema noted Pedal (R), no edema noted Generalized Neurologic: motor weakness Skin: normal pigmentation, warm/dry Seb Mike DO December 16, 2018 14:56
--- NOTE | 2018-12-16 16:58 | Consultation ---
History of Present Illness General Date patient seen: December 16, 2018 Chief Complaint: Fever Reason for Consultation: abdominal cellulitis Present Illness HPI 63 year old female care facility resident with multiple medical comorbidities who was admitted to [facility] for sepsis with fevers, leukocytosis, cellulitis. surgery called to evaluate and assist with care. patient seen, chart reviewed, patient examined. Allergies: Coded Allergies: No Known Allergies (Unverified , 04/14/14) Medication History Scheduled Ascorbic Acid* (Vitamin C*), 500 MG GT DAILY, (Reported) Cefepime Hcl/D5w (Cefepime-Dextrose 1 Gm/50 Ml), 1 GM IVPB EVERY 12 HOURS Cranberry Extract (Cranberry), 425 MG GT DAILY, (Reported) Docusate Sodium (Docusate Sodium), 100 MG GT DAILY, (Reported) Esomeprazole Magnesium (Nexium), 40 MG GT DAILY, (Reported) Folic Acid* (Folic Acid*), 1 MG GT DAILY, (Reported) Levetiracetam (Keppra), 1,500 MG GT EVERY 12 HOURS, (Reported) Levothyroxine Sodium* (Synthroid*), 100 MCG GT DAILY, (Reported) Magnesium Hydroxide* (Milk Of Magnesia*), 30 ML GT DAILY, (Reported) Midodrine (Midodrine HCl), 10 MG ORAL TID, (Reported) Multivits W-Min/Ferrous Gluc (Multivitamin-Mineral Liquid), 30 ML GT DAILY, ( Reported) Na Phos,M-B/Na Phos,Di-Ba* (Fleet Enema*), 133 ML RECTAL DAILY, (Reported) Phenobarbital* (Phenobarbital*), 40 MG GT EVERY 12 HOURS, (Reported) Protein Supplement (Promod), 30 ML GT TWICE A DAY, (Reported) Valproate Sodium (Valproic Acid), 800 MG GT EVERY 8 HOURS, (Reported) Zinc Sulfate (Zinc Sulfate*), 220 MG GT DAILY, (Reported) Scheduled PRN Acetaminophen (Acetaminophen), 650 MG GT Q6H PRN for Prn Headache/Temp > 101, ( Reported) Albuterol Sulfate* (Albuterol Sulfate Hhn*), 3 ML INH Q6H PRN for Shortness of Breath, (Reported) Diphenhydramine Hcl* (Diphenhydramine Hcl*), 50 MG ORAL DAILY PRN for Itching, ( Reported) Miscellaneous Medications Bisacodyl (Dulcolax), 10 MG RC, (Reported) Patient History Limited by: medical condition History Provided By: Medical Record, PMD Healthcare decision maker Resuscitation status Advanced Directive on File Past Medical/Surgical History Past Medical/Surgical History: (1) Lactic acid acidosis (2) UTI (lower urinary tract infection) (3) Septic shock (4) Pneumonia (5) Hypothyroidism (6) Hypotension (7) Acute on chronic respiratory failure (8) Hypernatremia (9) Hypokalemia (10) COPD (chronic obstructive pulmonary disease) (11) Seizure disorder (12) Tracheostomy dependent (13) Decubital ulcer (14) Abdominal wall cellulitis (15) Pressure ulcer (16) Chronic respiratory failure (17) Severe sepsis Review of Systems ROS Narrative cannot obtain given medical condition Physical Exam General Appearance: no apparent distress Lines, tubes and drains: peripheral HEENT: normocephalic, mucous membranes moist Neck: normal inspection Respiratory/Chest: no respiratory distress, no accessory muscle use, decreased breath sounds, other Cardiovascular/Chest: tachycardia, other Abdomen: no organomegaly, no mass, hypoactive bowel sounds, other - cellulitis Extremities: normal inspection Skin Exam: warm/dry Last 24 Hour Vital Signs Date Time Temp Pulse Resp B/P (MAP) Pulse Ox O2 Delivery O2 Flow Rate FiO2 12/16/18 16:00 12.0 40 12/16/18 16:00 T-piece 12.0 12/16/18 16:00 120/80 12/16/18 16:00 72 12/16/18 15:30 98.8 63 29 102/50 (67) 100 12/16/18 15:00 67 29 99/53 (68) 100 12/16/18 14:30 64 29 100/52 (68) 100 12/16/18 14:00 67 30 91/46 (61) 100 12/16/18 14:00 91/46 12/16/18 13:45 70 30 93/48 (63) 100 12/16/18 13:30 100.3 68 32 86/45 (59) 100 12/16/18 13:15 71 31 85/44 (58) 100 12/16/18 13:00 71 31 91/48 (62) 100 12/16/18 13:00 86/48 12/16/18 12:30 T-piece 12.0 40 12/16/18 12:30 100 T-piece 12.0 40 12/16/18 12:30 99.6 72 31 90/47 (61) 100 12/16/18 12:00 68 12/16/18 12:00 T-piece 12.0 12/16/18 12:00 12.0 40 12/16/18 12:00 97/49 12/16/18 12:00 78 31 91/48 (62) 100 12/16/18 11:30 78 26 109/69 (82) 100 12/16/18 11:00 81 27 95/45 (62) 100 12/16/18 10:30 81 27 103/54 (70) 100 12/16/18 10:00 86 30 112/46 (68) 100 12/16/18 09:30 86 30 101/56 (71) 100 12/16/18 09:00 86 30 111/62 (78) 100 12/16/18 08:30 98.9 92 38 121/64 (83) 100 12/16/18 08:00 97 12/16/18 08:00 12.0 40 12/16/18 08:00 T-piece 12.0 12/16/18 08:00 88 32 99/52 (68) 100 12/16/18 07:30 100.6 94 28 100/52 (68) 100 12/16/18 07:00 114/63 12/16/18 07:00 90 35 108/63 (78) 100 12/16/18 06:50 100 T-piece 12.0 40 12/16/18 06:50 T-piece 12.0 40 12/16/18 06:50 96 30 T-piece 12.0 40 12/16/18 06:30 75 26 90/50 (63) 100 12/16/18 06:00 87 33 112/48 (69) 100 12/16/18 06:00 112/48 12/16/18 05:50 106/56 12/16/18 05:30 81 26 106/56 (73) 97 12/16/18 05:00 80 35 110/58 (75) 95 12/16/18 04:30 71 33 106/60 (75) 100 12/16/18 04:00 12.0 40 12/16/18 04:00 T-piece 12.0 12/16/18 04:00 79 12/16/18 04:00 99.6 71 27 105/60 (75) 100 12/16/18 03:30 72 32 107/61 (76) 100 12/16/18 03:15 76 31 114/61 (78) 100 12/16/18 03:00 84 20 129/63 (85) 97 12/16/18 02:30 57 30 87/44 (58) 98 12/16/18 02:00 67 35 93/47 (62) 97 12/16/18 02:00 97/47 12/16/18 01:30 67 34 92/48 (63) 97 12/16/18 01:24 T-piece 12.0 40 12/16/18 01:24 98 T-piece 12.0 40 12/16/18 01:24 70 20 T-piece 12.0 40 12/16/18 01:00 76 24 102/53 (69) 97 12/16/18 01:00 83/46 12/16/18 00:30 76 26 84/50 (61) 92 12/16/18 00:00 12.0 40 12/16/18 00:00 84/50 12/16/18 00:00 99.4 64 30 83/48 (60) 94 12/16/18 00:00 71 12/16/18 00:00 T-piece 12.0 12/15/18 23:30 76 36 92/56 (68) 94 12/15/18 23:00 90/46 12/15/18 23:00 65 26 81/42 (55) 99 12/15/18 22:53 99.5 12/15/18 22:30 68 26 83/44 (57) 100 12/15/18 22:15 73 26 94/78 (83) 100 12/15/18 22:15 86/46 12/15/18 22:00 100.2 66 25 86/46 (59) 100 12/15/18 21:30 68 23 99/51 (67) 100 12/15/18 21:00 65 28 84/40 (55) 100 12/15/18 21:00 84/51 12/15/18 20:30 73 29 108/46 (66) 100 12/15/18 20:00 99.9 67 28 120/103 (109) 100 12/15/18 20:00 12.0 40 12/15/18 20:00 93/55 12/15/18 20:00 63 12/15/18 19:45 T-piece 12.0 12/15/18 19:30 72 29 107/63 (78) 100 12/15/18 19:29 90/60 12/15/18 19:15 84 25 113/60 (77) 99 12/15/18 19:14 100 T-piece 12.0 40 12/15/18 19:14 T-piece 12.0 40 12/15/18 19:00 95/50 12/15/18 19:00 64 27 95/50 (65) 100 12/15/18 18:30 67 23 118/65 (82) 100 12/15/18 18:00 66 25 96/48 (64) 100 12/15/18 18:00 96/48 12/15/18 17:45 67 26 96/52 (67) 100 12/15/18 17:31 95 20 T-piece 12.0 40 12/15/18 17:31 T-piece 12.0 40 12/15/18 17:31 100 T-piece 12.0 40 12/15/18 17:30 70 27 113/50 (71) 100 12/15/18 17:30 69 25 113/50 (71) 100 12/15/18 17:15 90 19 134/59 (84) 99 12/15/18 17:00 67 22 107/58 (74) 100 12/15/18 17:00 107/58 Intake and Output 12/15/18 12/16/18 19:00 07:00 Intake Total 3105 ml 1270.0 ml Output Total 120 ml 640 ml Balance 2985 ml 630.0 ml Intake Free Water 150 ml IV Total 3105 ml 760.0 ml Tube Feeding 360 ml Output Urine Total 120 ml 640 ml # Voids 2 # Bowel Movements 1 Laboratory Tests Test 12/16/18 04:50 White Blood Count 18.4 K/UL (4.8-10.8) H Red Blood Count 3.98 M/UL (4.20-5.40) L Hemoglobin 12.0 G/DL (12.0-16.0) Hematocrit 36.8 % (37.0-47.0) L Mean Corpuscular Volume 93 FL (80-99) Mean Corpuscular Hemoglobin 30.3 PG (27.0-31.0) Mean Corpuscular Hemoglobin Concent 32.7 G/DL (32.0-36.0) Red Cell Distribution Width 13.4 % (11.6-14.8) Platelet Count 154 K/UL (150-450) Mean Platelet Volume 8.6 FL (6.5-10.1) Neutrophils (%) (Auto) % (45.0-75.0) Lymphocytes (%) (Auto) % (20.0-45.0) Monocytes (%) (Auto) % (1.0-10.0) Eosinophils (%) (Auto) % (0.0-3.0) Basophils (%) (Auto) % (0.0-2.0) Differential Total Cells Counted 100 Neutrophils % (Manual) 80 % (45-75) H Lymphocytes % (Manual) 9 % (20-45) L Monocytes % (Manual) 10 % (1-10) Eosinophils % (Manual) 0 % (0-3) Basophils % (Manual) 0 % (0-2) Band Neutrophils 1 % (0-8) Platelet Estimate Adequate Platelet Morphology Normal Red Blood Cell Morphology Normal Sodium Level 136 MMOL/L (136-145) Potassium Level 3.7 MMOL/L (3.5-5.1) Chloride Level 101 MMOL/L (98-107) Carbon Dioxide Level 26 MMOL/L (21-32) Anion Gap 9 mmol/L (5-15) Blood Urea Nitrogen 9 mg/dL (7-18) Creatinine 0.7 MG/DL (0.55-1.30) Estimat Glomerular Filtration Rate > 60 mL/min (>60) Glucose Level 158 MG/DL (74-106) H Calcium Level 8.0 MG/DL (8.5-10.1) L Total Bilirubin 0.4 MG/DL (0.2-1.0) Aspartate Amino Transf (AST/SGOT) 30 U/L (15-37) Alanine Aminotransferase (ALT/SGPT) 27 U/L (12-78) Alkaline Phosphatase 92 U/L (46-116) Total Protein 6.9 G/DL (6.4-8.2) Albumin 1.9 G/DL (3.4-5.0) L Globulin 5.0 g/dL Albumin/Globulin Ratio 0.4 (1.0-2.7) L Height (Feet): 5 Height (Inches): 5.00 Weight (Pounds): 189 Medications Current Medications Medications (Trade) Dose Ordered Sig/Neo Route PRN Reason Start Time Stop Time Status Last Admin Dose Admin Acetaminophen (Tylenol) 650 mg Q4H PRN ORAL fever 12/15/18 14:00 01/14/19 13:59 12/15/18 22:23 Albuterol/ Ipratropium (Albuterol/ Ipratropium) 3 ml Q4H PRN HHN Shortness of Breath 12/15/18 14:00 12/20/18 13:59 Amikacin Protocol (Amikacin pharmacy to dose) 1 ea DAILY PRN MISC Per rx protocol 12/16/18 10:45 01/15/19 10:44 Amikacin Sulfate 1000 mg/Sodium Chloride 114 ml @ 114 mls/hr Q36H IV 12/16/18 14:00 12/23/18 13:59 12/16/18 14:00 Cefepime HCl 2 gm/ Dextrose 110 ml @ 220 mls/hr Q24H IV 12/16/18 01:00 12/23/18 00:59 12/16/18 00:17 Chlorhexidine Gluconate (Cathleen-Hex 2%) 1 applic DAILY@2000 TOPIC 12/15/18 20:00 01/14/19 19:59 12/15/18 20:16 Heparin Sodium (Porcine) (Heparin 5000 units/ml) 5,000 units EVERY 12 HOURS SUBQ 12/15/18 21:00 01/14/19 20:59 12/16/18 09:42 Levothyroxine Sodium (Synthroid) 100 mcg DAILY@0630 ORAL 12/17/18 06:30 01/16/19 06:29 Morphine Sulfate (Morphine Sulfate) 2 mg Q4H PRN IVP Moderate Pain (Pain Scale 4-6) 12/15/18 14:00 12/22/18 13:59 Norepinephrine Bitartrate 4 mg/ Dextrose 250 ml @ 0 mls/hr Q24H IV 12/15/18 19:07 01/14/19 19:06 12/16/18 05:50 Ondansetron HCl (Zofran) 4 mg Q6H PRN IVP Nausea & Vomiting 12/15/18 14:00 01/14/19 13:59 Polyethylene Glycol (Miralax) 17 gm DAILYPRN PRN ORAL Constipation 12/15/18 14:00 01/14/19 13:59 Sodium Chloride 1,000 ml @ 100 mls/hr Q10H IV 12/16/18 10:45 01/15/19 10:44 12/16/18 10:50 Temazepam (Restoril) 15 mg HSPRN PRN ORAL Insomnia 12/15/18 14:00 12/22/18 13:59 Vancomycin HCl (Vanco rx to dose) 1 ea DAILY PRN MISC PER PHARMACY 12/15/18 14:15 01/14/19 14:14 Vancomycin HCl 750 mg/Sodium Chloride 275 ml @ 183.333 mls/hr Q12HR@0100,1300 IVPB 12/16/18 01:00 12/21/18 00:59 12/16/18 13:40 Assessment/Plan Problem List: (1) Lactic acid acidosis ICD Codes: E87.2 - Acidosis SNOMED: 87590849 (2) UTI (lower urinary tract infection) ICD Codes: N39.0 - UTI (lower urinary tract infection) SNOMED: 2766639 (3) Septic shock Assessment & Plan: diffuse rash noted on arms, trunk legs abdominal wall superficial cellulitis leukocytosis fevers No acute surgical intervention planned IV abx trend labs will follow with exam and recs thank you ICD Codes: A41.9 - Septic shock; R65.21 - Severe sepsis with septic shock SNOMED: 34446076 (4) Pneumonia ICD Codes: J18.9 - Pneumonia SNOMED: 043813034 (5) Hypothyroidism ICD Codes: E03.9 - Hypothyroidism, unspecified SNOMED: 67790884 (6) Hypotension ICD Codes: I95.9 - Hypotension SNOMED: 07191950 (7) Acute on chronic respiratory failure ICD Codes: J96.20 - Acute on chronic respiratory failure SNOMED: 46995208 (8) Hypernatremia ICD Codes: E87.0 - Hyperosmolality and hypernatremia SNOMED: 52973578 (9) Hypokalemia ICD Codes: E87.6 - Hypokalemia SNOMED: 34039118 (10) COPD (chronic obstructive pulmonary disease) ICD Codes: J44.9 - Chronic obstructive pulmonary disease, unspecified SNOMED: 79129334 (11) Seizure disorder ICD Codes: G40.909 - Seizure disorder SNOMED: 072049477 (12) Tracheostomy dependent ICD Codes: Z93.0 - Tracheostomy dependent SNOMED: 516202316 (13) Decubital ulcer Assessment & Plan: Pt presented on admission with multiple pressure injuries.Pt noted to have diffused erythematous rash abd, thoracic area, both thighs,R and L tibias. Full thickness pressure injury sacrococcygeal area. Base of wound pale with callused borders.Non-blanchable erythema periwound with additional partial thickness shearing..(L)1cm x (W)0.6cm x (D)0.2cm. Unstageable pressure injury R buttocks.Base of wound has 80% mixed necrosis / slough,20% viable. Clockwise at 6o'clock an area of induration noted.Small amt seropurulent exudate noted. No odor noted. (L)9 cm x (W)7cm. Periwound indurated with non-blanchable erythema with additional partial thickness wounds. Full thickness pressure injury noted to L buttocks.Base of wound is viable with trace amt of biofilm,(+) maceration along borders. (L)1.4cm x (W)1cm x (D) 0.2cm. Non-blanchable erythema with shearing periwound. Shearing with multiple small partial thickness wounds ,and surrounding darker skin tone without induration noted to R and L ischial areas. Tx.Plan: Cleanse wounds Sacrococcygeal, R and L buttocks with Saline. Apply Therhaoney to each wound.Apply Triad Paste periwound. Cover with Optifoam drsgs. Apply Triad Paste to R and L ischium with each incontinence care. Apply Cavilon Skin Barrier to R and L heels. Ciover each heel with Optifoam drsg. Change every 7 days and prn. APM/JANINE Mattress overlay Reposition at least every 2hours or as tolerated. Off-load heels with pillow. ICD Codes: L89.90 - Pressure ulcer of unspecified site, unspecified stage SNOMED: 031337892 (14) Abdominal wall cellulitis ICD Codes: L03.311 - Cellulitis of abdominal wall SNOMED: 25411779 (15) Pressure ulcer ICD Codes: L89.90 - Pressure ulcer SNOMED: 712073953 (16) Chronic respiratory failure ICD Codes: J96.10 - Chronic respiratory failure SNOMED: 85135033 (17) Severe sepsis ICD Codes: A41.9 - Sepsis, unspecified organism; R65.20 - Severe sepsis without septic shock SNOMED: 044271129 Lazaro Hodges December 16, 2018 16:57
--- NOTE | 2018-12-16 17:30 | Consultation ---
History of Present Illness General Date patient seen: December 16, 2018 Chief Complaint: Fever Reason for Consultation: abdominal cellulitis Present Illness HPI 63 y/o F wtih hx of vegetative state, anoxic encephalopathy, COPD, DM2, seizure disorder, anemia, hypothyroidisim, CVA, chronic vent, PEG, [facility] resident brought presents to ED on 12/15 with fever, leukocytosis, abdominal redness. Fever up to 102.3 IT was noted patient to have cellulitis on posterior trunk as well as bilateral lower extremities. Hypotensive on way to hospital. Allergies: Coded Allergies: No Known Allergies (Unverified , 04/14/14) Medication History Scheduled Ascorbic Acid* (Vitamin C*), 500 MG GT DAILY, (Reported) Cefepime Hcl/D5w (Cefepime-Dextrose 1 Gm/50 Ml), 1 GM IVPB EVERY 12 HOURS Cranberry Extract (Cranberry), 425 MG GT DAILY, (Reported) Docusate Sodium (Docusate Sodium), 100 MG GT DAILY, (Reported) Esomeprazole Magnesium (Nexium), 40 MG GT DAILY, (Reported) Folic Acid* (Folic Acid*), 1 MG GT DAILY, (Reported) Levetiracetam (Keppra), 1,500 MG GT EVERY 12 HOURS, (Reported) Levothyroxine Sodium* (Synthroid*), 100 MCG GT DAILY, (Reported) Magnesium Hydroxide* (Milk Of Magnesia*), 30 ML GT DAILY, (Reported) Midodrine (Midodrine HCl), 10 MG ORAL TID, (Reported) Multivits W-Min/Ferrous Gluc (Multivitamin-Mineral Liquid), 30 ML GT DAILY, ( Reported) Na Phos,M-B/Na Phos,Di-Ba* (Fleet Enema*), 133 ML RECTAL DAILY, (Reported) Phenobarbital* (Phenobarbital*), 40 MG GT EVERY 12 HOURS, (Reported) Protein Supplement (Promod), 30 ML GT TWICE A DAY, (Reported) Valproate Sodium (Valproic Acid), 800 MG GT EVERY 8 HOURS, (Reported) Zinc Sulfate (Zinc Sulfate*), 220 MG GT DAILY, (Reported) Scheduled PRN Acetaminophen (Acetaminophen), 650 MG GT Q6H PRN for Prn Headache/Temp > 101, ( Reported) Albuterol Sulfate* (Albuterol Sulfate Hhn*), 3 ML INH Q6H PRN for Shortness of Breath, (Reported) Diphenhydramine Hcl* (Diphenhydramine Hcl*), 50 MG ORAL DAILY PRN for Itching, ( Reported) Miscellaneous Medications Bisacodyl (Dulcolax), 10 MG RC, (Reported) Patient History Healthcare decision maker Resuscitation status Advanced Directive on File Patient History Narrative Pmhx: as above Shx: No smoking. No alcohol. No drug abuse. Fhx: non contributory Review of Systems All Other Systems: negative except mentioned in HPI Physical Exam Physical Exam Narrative General Appearance: no apparent distress Lines, tubes and drains: peripheral HEENT: normocephalic, mucous membranes moist Neck: normal inspection Respiratory/Chest: no respiratory distress, no accessory muscle use, decreased breath sounds, other Cardiovascular/Chest: tachycardia, other Abdomen: no organomegaly, no mass, hypoactive bowel sounds, other - cellulitis Extremities: normal inspection Skin Exam: warm/dry, erythematous patches, blanchin in a irregular fashion on b /l Legs, thighs and lower abdomen Last 24 Hour Vital Signs Date Time Temp Pulse Resp B/P (MAP) Pulse Ox O2 Delivery O2 Flow Rate FiO2 12/16/18 17:00 114/62 12/16/18 16:00 12.0 40 12/16/18 16:00 T-piece 12.0 12/16/18 16:00 120/80 12/16/18 16:00 72 12/16/18 15:30 98.8 63 29 102/50 (67) 100 12/16/18 15:00 67 29 99/53 (68) 100 12/16/18 14:30 64 29 100/52 (68) 100 12/16/18 14:00 67 30 91/46 (61) 100 12/16/18 14:00 91/46 12/16/18 13:45 70 30 93/48 (63) 100 12/16/18 13:30 100.3 68 32 86/45 (59) 100 12/16/18 13:15 71 31 85/44 (58) 100 12/16/18 13:00 71 31 91/48 (62) 100 12/16/18 13:00 86/48 12/16/18 12:30 T-piece 12.0 40 12/16/18 12:30 100 T-piece 12.0 40 12/16/18 12:30 99.6 72 31 90/47 (61) 100 12/16/18 12:00 68 12/16/18 12:00 T-piece 12.0 12/16/18 12:00 12.0 40 12/16/18 12:00 97/49 12/16/18 12:00 78 31 91/48 (62) 100 12/16/18 11:30 78 26 109/69 (82) 100 12/16/18 11:00 81 27 95/45 (62) 100 12/16/18 10:30 81 27 103/54 (70) 100 12/16/18 10:00 86 30 112/46 (68) 100 12/16/18 09:30 86 30 101/56 (71) 100 12/16/18 09:00 86 30 111/62 (78) 100 12/16/18 08:30 98.9 92 38 121/64 (83) 100 12/16/18 08:00 97 12/16/18 08:00 12.0 40 12/16/18 08:00 T-piece 12.0 12/16/18 08:00 88 32 99/52 (68) 100 12/16/18 07:30 100.6 94 28 100/52 (68) 100 12/16/18 07:00 114/63 12/16/18 07:00 90 35 108/63 (78) 100 12/16/18 06:50 100 T-piece 12.0 40 12/16/18 06:50 T-piece 12.0 40 12/16/18 06:50 96 30 T-piece 12.0 40 12/16/18 06:30 75 26 90/50 (63) 100 12/16/18 06:00 87 33 112/48 (69) 100 12/16/18 06:00 112/48 12/16/18 05:50 106/56 12/16/18 05:30 81 26 106/56 (73) 97 12/16/18 05:00 80 35 110/58 (75) 95 12/16/18 04:30 71 33 106/60 (75) 100 12/16/18 04:00 12.0 40 12/16/18 04:00 T-piece 12.0 12/16/18 04:00 79 12/16/18 04:00 99.6 71 27 105/60 (75) 100 12/16/18 03:30 72 32 107/61 (76) 100 12/16/18 03:15 76 31 114/61 (78) 100 12/16/18 03:00 84 20 129/63 (85) 97 12/16/18 02:30 57 30 87/44 (58) 98 12/16/18 02:00 67 35 93/47 (62) 97 12/16/18 02:00 97/47 12/16/18 01:30 67 34 92/48 (63) 97 12/16/18 01:24 T-piece 12.0 40 12/16/18 01:24 98 T-piece 12.0 40 12/16/18 01:24 70 20 T-piece 12.0 40 12/16/18 01:00 76 24 102/53 (69) 97 12/16/18 01:00 83/46 12/16/18 00:30 76 26 84/50 (61) 92 12/16/18 00:00 12.0 40 12/16/18 00:00 84/50 12/16/18 00:00 99.4 64 30 83/48 (60) 94 12/16/18 00:00 71 12/16/18 00:00 T-piece 12.0 12/15/18 23:30 76 36 92/56 (68) 94 12/15/18 23:00 90/46 12/15/18 23:00 65 26 81/42 (55) 99 12/15/18 22:53 99.5 12/15/18 22:30 68 26 83/44 (57) 100 12/15/18 22:15 73 26 94/78 (83) 100 12/15/18 22:15 86/46 12/15/18 22:00 100.2 66 25 86/46 (59) 100 12/15/18 21:30 68 23 99/51 (67) 100 12/15/18 21:00 65 28 84/40 (55) 100 12/15/18 21:00 84/51 12/15/18 20:30 73 29 108/46 (66) 100 12/15/18 20:00 99.9 67 28 120/103 (109) 100 12/15/18 20:00 12.0 40 12/15/18 20:00 93/55 12/15/18 20:00 63 12/15/18 19:45 T-piece 12.0 12/15/18 19:30 72 29 107/63 (78) 100 12/15/18 19:29 90/60 12/15/18 19:15 84 25 113/60 (77) 99 12/15/18 19:14 100 T-piece 12.0 40 12/15/18 19:14 T-piece 12.0 40 12/15/18 19:00 95/50 12/15/18 19:00 64 27 95/50 (65) 100 12/15/18 18:30 67 23 118/65 (82) 100 12/15/18 18:00 66 25 96/48 (64) 100 12/15/18 18:00 96/48 12/15/18 17:45 67 26 96/52 (67) 100 12/15/18 17:31 95 20 T-piece 12.0 40 12/15/18 17:31 T-piece 12.0 40 12/15/18 17:31 100 T-piece 12.0 40 12/15/18 17:30 70 27 113/50 (71) 100 12/15/18 17:30 69 25 113/50 (71) 100 Intake and Output 12/15/18 12/16/18 19:00 07:00 Intake Total 3105 ml 1270.0 ml Output Total 120 ml 640 ml Balance 2985 ml 630.0 ml Intake Free Water 150 ml IV Total 3105 ml 760.0 ml Tube Feeding 360 ml Output Urine Total 120 ml 640 ml # Voids 2 # Bowel Movements 1 Laboratory Tests Test 12/16/18 04:50 White Blood Count 18.4 K/UL (4.8-10.8) H Red Blood Count 3.98 M/UL (4.20-5.40) L Hemoglobin 12.0 G/DL (12.0-16.0) Hematocrit 36.8 % (37.0-47.0) L Mean Corpuscular Volume 93 FL (80-99) Mean Corpuscular Hemoglobin 30.3 PG (27.0-31.0) Mean Corpuscular Hemoglobin Concent 32.7 G/DL (32.0-36.0) Red Cell Distribution Width 13.4 % (11.6-14.8) Platelet Count 154 K/UL (150-450) Mean Platelet Volume 8.6 FL (6.5-10.1) Neutrophils (%) (Auto) % (45.0-75.0) Lymphocytes (%) (Auto) % (20.0-45.0) Monocytes (%) (Auto) % (1.0-10.0) Eosinophils (%) (Auto) % (0.0-3.0) Basophils (%) (Auto) % (0.0-2.0) Differential Total Cells Counted 100 Neutrophils % (Manual) 80 % (45-75) H Lymphocytes % (Manual) 9 % (20-45) L Monocytes % (Manual) 10 % (1-10) Eosinophils % (Manual) 0 % (0-3) Basophils % (Manual) 0 % (0-2) Band Neutrophils 1 % (0-8) Platelet Estimate Adequate Platelet Morphology Normal Red Blood Cell Morphology Normal Sodium Level 136 MMOL/L (136-145) Potassium Level 3.7 MMOL/L (3.5-5.1) Chloride Level 101 MMOL/L (98-107) Carbon Dioxide Level 26 MMOL/L (21-32) Anion Gap 9 mmol/L (5-15) Blood Urea Nitrogen 9 mg/dL (7-18) Creatinine 0.7 MG/DL (0.55-1.30) Estimat Glomerular Filtration Rate > 60 mL/min (>60) Glucose Level 158 MG/DL (74-106) H Calcium Level 8.0 MG/DL (8.5-10.1) L Total Bilirubin 0.4 MG/DL (0.2-1.0) Aspartate Amino Transf (AST/SGOT) 30 U/L (15-37) Alanine Aminotransferase (ALT/SGPT) 27 U/L (12-78) Alkaline Phosphatase 92 U/L (46-116) Total Protein 6.9 G/DL (6.4-8.2) Albumin 1.9 G/DL (3.4-5.0) L Globulin 5.0 g/dL Albumin/Globulin Ratio 0.4 (1.0-2.7) L Height (Feet): 5 Height (Inches): 5.00 Weight (Pounds): 189 Medications Current Medications Medications (Trade) Dose Ordered Sig/Neo Route PRN Reason Start Time Stop Time Status Last Admin Dose Admin Acetaminophen (Tylenol) 650 mg Q4H PRN ORAL fever 12/15/18 14:00 01/14/19 13:59 12/15/18 22:23 Albuterol/ Ipratropium (Albuterol/ Ipratropium) 3 ml Q4H PRN HHN Shortness of Breath 12/15/18 14:00 12/20/18 13:59 Amikacin Protocol (Amikacin pharmacy to dose) 1 ea DAILY PRN MISC Per rx protocol 12/16/18 10:45 01/15/19 10:44 Amikacin Sulfate 1000 mg/Sodium Chloride 114 ml @ 114 mls/hr Q36H IV 12/16/18 14:00 12/23/18 13:59 12/16/18 14:00 Cefepime HCl 2 gm/ Dextrose 110 ml @ 220 mls/hr Q24H IV 12/16/18 01:00 12/23/18 00:59 12/16/18 00:17 Chlorhexidine Gluconate (Cathleen-Hex 2%) 1 applic DAILY@2000 TOPIC 12/15/18 20:00 01/14/19 19:59 12/15/18 20:16 Heparin Sodium (Porcine) (Heparin 5000 units/ml) 5,000 units EVERY 12 HOURS SUBQ 12/15/18 21:00 01/14/19 20:59 12/16/18 09:42 Levothyroxine Sodium (Synthroid) 100 mcg DAILY@0630 ORAL 12/17/18 06:30 01/16/19 06:29 Morphine Sulfate (Morphine Sulfate) 2 mg Q4H PRN IVP Moderate Pain (Pain Scale 4-6) 12/15/18 14:00 12/22/18 13:59 Norepinephrine Bitartrate 4 mg/ Dextrose 250 ml @ 0 mls/hr Q24H IV 12/15/18 19:07 01/14/19 19:06 12/16/18 05:50 Ondansetron HCl (Zofran) 4 mg Q6H PRN IVP Nausea & Vomiting 12/15/18 14:00 01/14/19 13:59 Polyethylene Glycol (Miralax) 17 gm DAILYPRN PRN ORAL Constipation 12/15/18 14:00 01/14/19 13:59 Sodium Chloride 1,000 ml @ 100 mls/hr Q10H IV 12/16/18 10:45 01/15/19 10:44 12/16/18 10:50 Temazepam (Restoril) 15 mg HSPRN PRN ORAL Insomnia 12/15/18 14:00 12/22/18 13:59 Vancomycin HCl (Vanco rx to dose) 1 ea DAILY PRN MISC PER PHARMACY 12/15/18 14:15 01/14/19 14:14 Vancomycin HCl 750 mg/Sodium Chloride 275 ml @ 183.333 mls/hr Q12HR@0100,1300 IVPB 12/16/18 01:00 12/21/18 00:59 12/16/18 13:40 Assessment/Plan Assessment/Plan: Abx: IV Vancomycin 12/15- Cefepime 12/15- Amikacin 12/16- Flagyl x 1 12/15 Assessment: Septic shock -likely 2ry to PNA- r/o bacteremia -CXR: Mild basal atelectasis. -u/a no pyuria, nit eg, leuk +1 -CT abd/p w/: Patchy posterior basilar consolidation. Consider pneumonia. Small bilateral pleural effusions noted. Artifact limiting evaluation of the upper abdomen. Possible tiny nonobstructive stone in the right kidney. Gastrostomy in good position. Question of a tiny gallstone. Heterogeneous uterus nonspecific. Calvarial bone flap in the right lower quadrant of the abdomen. Low grade fever Leukocytosis Irregular/blanching erythematous rash (LE, lower abdomen)- ?erypsipelas vs 1ry dermatological rash (not infectious) vegetative state anoxic encephalopathy COPD DM2 seizure disorder anemia hypothyroidisim CVA chronic vent PEG [facility] resident Plan: -Continue empiric IV Vancomycin #2, Cefepime #2 and IV Amikacin #1 pending cultures -sp cx -f/u cx -Monitor CBC/CMP, temperatures -PEG/Trach/ICU care -wound care per surgical team -sp cx Thank you for this consultation. Will continue to follow along with you. Discussed with Misti España M.D. December 16, 2018 17:30
--- NOTE | 2018-12-16 17:39 | Cardiology Report ---
APPROVED REPORT EKG Measurement Heart [id number] CO [id number] [id number] Normal sinus rhythm Low voltage QRS Borderline ECG
[2018-12-16] MEDS: DOPamine 400mg/250ml 250 ML IV SCH (18:13)
[2018-12-16] MEDS: Dyna-Hex 2% Top Sol 2oz TOPIC SCH (20:24)
--- NOTE | 2018-12-16 20:24 | Cardiology Progress Note ---
Assessment/Plan Assessment/Plan The patient is seen and examined, full consult note will be dictated. Objective Last 24 Hour Vital Signs Date Time Temp Pulse Resp B/P (MAP) Pulse Ox O2 Delivery O2 Flow Rate FiO2 12/16/18 19:30 98 32 112/67 (82) 100 12/16/18 19:06 98 T-piece 12.0 40 12/16/18 19:06 T-piece 12.0 40 12/16/18 19:06 81 25 T-piece 12.0 40 12/16/18 19:00 76 22 97/48 (64) 100 12/16/18 18:30 85 22 108/55 (72) 97 12/16/18 18:15 52 24 91/46 (61) 100 12/16/18 18:13 101/50 12/16/18 18:00 54 29 92/44 (60) 100 12/16/18 17:30 60 29 92/44 (60) 100 12/16/18 17:00 114/62 12/16/18 17:00 65 24 110/54 (72) 100 12/16/18 16:30 68 29 109/51 (70) 100 12/16/18 16:00 12.0 40 12/16/18 16:00 T-piece 12.0 12/16/18 16:00 120/80 12/16/18 16:00 72 12/16/18 16:00 77 29 117/84 (95) 100 12/16/18 15:30 98.8 63 29 102/50 (67) 100 12/16/18 15:00 67 29 99/53 (68) 100 12/16/18 14:30 64 29 100/52 (68) 100 12/16/18 14:00 67 30 91/46 (61) 100 12/16/18 14:00 91/46 12/16/18 13:45 70 30 93/48 (63) 100 12/16/18 13:30 100.3 68 32 86/45 (59) 100 12/16/18 13:15 71 31 85/44 (58) 100 12/16/18 13:00 71 31 91/48 (62) 100 12/16/18 13:00 86/48 12/16/18 12:30 T-piece 12.0 40 12/16/18 12:30 100 T-piece 12.0 40 12/16/18 12:30 99.6 72 31 90/47 (61) 100 12/16/18 12:00 68 12/16/18 12:00 T-piece 12.0 12/16/18 12:00 12.0 40 12/16/18 12:00 97/49 12/16/18 12:00 78 31 91/48 (62) 100 12/16/18 11:30 78 26 109/69 (82) 100 12/16/18 11:00 81 27 95/45 (62) 100 12/16/18 10:30 81 27 103/54 (70) 100 12/16/18 10:00 86 30 112/46 (68) 100 12/16/18 09:30 86 30 101/56 (71) 100 12/16/18 09:00 86 30 111/62 (78) 100 12/16/18 08:30 98.9 92 38 121/64 (83) 100 12/16/18 08:00 97 12/16/18 08:00 12.0 40 12/16/18 08:00 T-piece 12.0 12/16/18 08:00 88 32 99/52 (68) 100 12/16/18 07:30 100.6 94 28 100/52 (68) 100 12/16/18 07:00 114/63 12/16/18 07:00 90 35 108/63 (78) 100 12/16/18 06:50 100 T-piece 12.0 40 12/16/18 06:50 T-piece 12.0 40 12/16/18 06:50 96 30 T-piece 12.0 40 12/16/18 06:30 75 26 90/50 (63) 100 12/16/18 06:00 87 33 112/48 (69) 100 12/16/18 06:00 112/48 12/16/18 05:50 106/56 12/16/18 05:30 81 26 106/56 (73) 97 12/16/18 05:00 80 35 110/58 (75) 95 12/16/18 04:30 71 33 106/60 (75) 100 12/16/18 04:00 12.0 40 12/16/18 04:00 T-piece 12.0 12/16/18 04:00 79 12/16/18 04:00 99.6 71 27 105/60 (75) 100 12/16/18 03:30 72 32 107/61 (76) 100 12/16/18 03:15 76 31 114/61 (78) 100 12/16/18 03:00 84 20 129/63 (85) 97 12/16/18 02:30 57 30 87/44 (58) 98 12/16/18 02:00 67 35 93/47 (62) 97 12/16/18 02:00 97/47 12/16/18 01:30 67 34 92/48 (63) 97 12/16/18 01:24 T-piece 12.0 40 12/16/18 01:24 98 T-piece 12.0 40 12/16/18 01:24 70 20 T-piece 12.0 40 12/16/18 01:00 76 24 102/53 (69) 97 12/16/18 01:00 83/46 12/16/18 00:30 76 26 84/50 (61) 92 12/16/18 00:00 12.0 40 12/16/18 00:00 84/50 12/16/18 00:00 99.4 64 30 83/48 (60) 94 12/16/18 00:00 71 12/16/18 00:00 T-piece 12.0 12/15/18 23:30 76 36 92/56 (68) 94 12/15/18 23:00 90/46 12/15/18 23:00 65 26 81/42 (55) 99 12/15/18 22:53 99.5 12/15/18 22:30 68 26 83/44 (57) 100 12/15/18 22:15 73 26 94/78 (83) 100 12/15/18 22:15 86/46 12/15/18 22:00 100.2 66 25 86/46 (59) 100 12/15/18 21:30 68 23 99/51 (67) 100 12/15/18 21:00 65 28 84/40 (55) 100 12/15/18 21:00 84/51 12/15/18 20:30 73 29 108/46 (66) 100 Intake and Output 12/15/18 12/16/18 19:00 07:00 Intake Total 3105 ml 1270.0 ml Output Total 120 ml 640 ml Balance 2985 ml 630.0 ml Intake Free Water 150 ml IV Total 3105 ml 760.0 ml Tube Feeding 360 ml Output Urine Total 120 ml 640 ml # Voids 2 # Bowel Movements 1 Laboratory Tests Test 12/16/18 04:50 White Blood Count 18.4 K/UL (4.8-10.8) H Red Blood Count 3.98 M/UL (4.20-5.40) L Hemoglobin 12.0 G/DL (12.0-16.0) Hematocrit 36.8 % (37.0-47.0) L Mean Corpuscular Volume 93 FL (80-99) Mean Corpuscular Hemoglobin 30.3 PG (27.0-31.0) Mean Corpuscular Hemoglobin Concent 32.7 G/DL (32.0-36.0) Red Cell Distribution Width 13.4 % (11.6-14.8) Platelet Count 154 K/UL (150-450) Mean Platelet Volume 8.6 FL (6.5-10.1) Neutrophils (%) (Auto) % (45.0-75.0) Lymphocytes (%) (Auto) % (20.0-45.0) Monocytes (%) (Auto) % (1.0-10.0) Eosinophils (%) (Auto) % (0.0-3.0) Basophils (%) (Auto) % (0.0-2.0) Differential Total Cells Counted 100 Neutrophils % (Manual) 80 % (45-75) H Lymphocytes % (Manual) 9 % (20-45) L Monocytes % (Manual) 10 % (1-10) Eosinophils % (Manual) 0 % (0-3) Basophils % (Manual) 0 % (0-2) Band Neutrophils 1 % (0-8) Platelet Estimate Adequate Platelet Morphology Normal Red Blood Cell Morphology Normal Sodium Level 136 MMOL/L (136-145) Potassium Level 3.7 MMOL/L (3.5-5.1) Chloride Level 101 MMOL/L (98-107) Carbon Dioxide Level 26 MMOL/L (21-32) Anion Gap 9 mmol/L (5-15) Blood Urea Nitrogen 9 mg/dL (7-18) Creatinine 0.7 MG/DL (0.55-1.30) Estimat Glomerular Filtration Rate > 60 mL/min (>60) Glucose Level 158 MG/DL (74-106) H Calcium Level 8.0 MG/DL (8.5-10.1) L Total Bilirubin 0.4 MG/DL (0.2-1.0) Aspartate Amino Transf (AST/SGOT) 30 U/L (15-37) Alanine Aminotransferase (ALT/SGPT) 27 U/L (12-78) Alkaline Phosphatase 92 U/L (46-116) Total Protein 6.9 G/DL (6.4-8.2) Albumin 1.9 G/DL (3.4-5.0) L Globulin 5.0 g/dL Albumin/Globulin Ratio 0.4 (1.0-2.7) L Vaughn Sahu MD December 16, 2018 20:23
[2018-12-16] MEDS ORDERED: Tubing IV Secondary IV ONE (21:54)
[2018-12-16] MEDS ORDERED: NS 275ml ONE (21:54)
[2018-12-17] VITALS (40 sets, daily range): BP systolic 84–125; BP diastolic 42–100
[2018-12-17] MEDS: Cefepime HCl 2 GM in D5W 110 ML IV SCH (00:52)
[2018-12-17] MEDS: Vancomycin 1gm in Dextrose 275ml IVPB SCH ×3 (01:42→17:35)
[2018-12-17 05:22] LABS: EOSINOPHILS % (AUTO) 1.7 % (0.0-3.0); HEMATOCRIT 34.2 % (37.0-47.0); HEMOGLOBIN 11.2 G/DL (12.0-16.0); LYMPHOCYTES % (AUTO) 11.5 % (20.0-45.0); MEAN CORPUSCULAR VOLUME 92 FL (80-99); MONOCYTES % (AUTO) 6.8 % (1.0-10.0); PLATELET COUNT 190 K/UL (150-450); RED CELL DISTRIBUTION WIDTH 13.4 % (11.6-14.8); WHITE BLOOD COUNT 11.7 K/UL (4.8-10.8)
[2018-12-17 05:52] LABS: ALANINE AMINOTRANSFERASE 30 U/L (12-78); ALBUMIN 1.8 G/DL (3.4-5.0); ALBUMIN/GLOBULIN RATIO 0.4 (1.0-2.7); ALKALINE PHOSPHATASE 93 U/L (46-116); ANION GAP 5 mmol/L (5-15); ASPARTATE AMINO TRANSFERASE 22 U/L (15-37); BILIRUBIN,TOTAL 0.2 MG/DL (0.2-1.0); BLOOD UREA NITROGEN 7 mg/dL (7-18); CALCIUM 8.1 MG/DL (8.5-10.1); CARBON DIOXIDE 31 MMOL/L (21-32); CHLORIDE 102 MMOL/L (98-107); CREATININE 0.5 MG/DL (0.55-1.30); POTASSIUM 2.8 MMOL/L (3.5-5.1); SODIUM 140 MMOL/L (136-145)
[2018-12-17] MEDS: DOPamine 400mg/250ml 250 ML IV SCH (09:00)
[2018-12-17] MEDS: Heparin 5000 units/ml inj SUBQ SCH ×2 (09:11→20:25)
--- NOTE | 2018-12-17 09:56 | Pulmonolgy Critical Care Note ---
Critical Care - Asmt/Plan Problems: (1) Septic shock (2) Acute on chronic respiratory failure (3) Chronic vegetative state (4) COPD (chronic obstructive pulmonary disease) (5) Seizure disorder (6) Chronic respiratory failure (7) Decubital ulcer Respiratory: monitor respiratory rate, adjust FIO2, CXR Cardiac: continue pressors, continue to monitor HR/BP Renal: F/U I&O, keep IV fluid Infectious Disease: check cultures Gastrointestinal: continue feedings/current rate Endocrine: monitor blood sugar, continue sliding scale insulin Hematologic: monitor H/H, transfuse if hgb<8.5 Neurologic: PRN Ativan Disposition: keep in ICU Notes Reviewed: curb attendant, cardio, renal Discussed with: nurses, consultants, field case managerbusiness performance manager - Objective Last 24 Hour Vital Signs Date Time Temp Pulse Resp B/P (MAP) Pulse Ox O2 Delivery O2 Flow Rate FiO2 12/17/18 09:00 84/46 12/17/18 09:00 89 27 84/46 (59) 100 12/17/18 08:00 T-piece 12.0 12/17/18 08:00 80 12/17/18 08:00 12.0 40 12/17/18 08:00 97.9 83 25 120/80 (93) 98 12/17/18 07:20 T-piece 12.0 40 12/17/18 07:20 71 22 T-piece 12.0 40 12/17/18 07:20 100 T-piece 12.0 40 12/17/18 07:00 71 27 119/82 (94) 100 12/17/18 06:00 73 21 97/57 (70) 100 12/17/18 05:00 77 31 111/66 (81) 98 12/17/18 04:00 99.0 74 19 100/56 (71) 95 12/17/18 04:00 T-piece 12.0 12/17/18 04:00 74 12/17/18 04:00 12.0 40 12/17/18 03:00 73 27 98/59 (72) 96 12/17/18 02:30 74 30 112/66 (81) 95 12/17/18 02:00 74 30 112/66 (81) 95 12/17/18 01:30 69 25 88/42 (57) 98 12/17/18 01:15 T-piece 12.0 40 12/17/18 01:15 100 T-piece 12.0 40 12/17/18 01:00 70 25 99/61 (74) 99 12/17/18 00:30 74 24 98/52 (67) 100 12/17/18 00:00 87 12/17/18 00:00 98.8 76 17 110/50 (70) 94 12/17/18 00:00 12.0 40 12/17/18 00:00 T-piece 12.0 12/16/18 23:30 67 25 89/49 (62) 95 12/16/18 23:00 68 22 85/51 (62) 93 12/16/18 22:30 70 28 87/47 (60) 95 12/16/18 22:00 65 25 89/56 (67) 97 12/16/18 21:30 86 21 104/81 (89) 100 12/16/18 21:00 66 26 103/60 (74) 98 12/16/18 20:30 83 25 113/68 (83) 99 12/16/18 20:00 99.3 79 29 95/56 (69) 86 12/16/18 20:00 T-piece 12.0 12/16/18 20:00 12.0 40 12/16/18 20:00 66 12/16/18 19:30 98 32 112/67 (82) 100 12/16/18 19:06 98 T-piece 12.0 40 12/16/18 19:06 T-piece 12.0 40 12/16/18 19:06 81 25 T-piece 12.0 40 12/16/18 19:00 76 22 97/48 (64) 100 12/16/18 18:30 85 22 108/55 (72) 97 12/16/18 18:15 52 24 91/46 (61) 100 12/16/18 18:13 101/50 12/16/18 18:00 54 29 92/44 (60) 100 12/16/18 17:30 60 29 92/44 (60) 100 12/16/18 17:00 114/62 12/16/18 17:00 65 24 110/54 (72) 100 12/16/18 16:30 68 29 109/51 (70) 100 12/16/18 16:00 12.0 40 12/16/18 16:00 T-piece 12.0 12/16/18 16:00 120/80 12/16/18 16:00 72 12/16/18 16:00 77 29 117/84 (95) 100 12/16/18 15:30 98.8 63 29 102/50 (67) 100 12/16/18 15:00 67 29 99/53 (68) 100 12/16/18 14:30 64 29 100/52 (68) 100 12/16/18 14:00 67 30 91/46 (61) 100 12/16/18 14:00 91/46 12/16/18 13:45 70 30 93/48 (63) 100 12/16/18 13:30 100.3 68 32 86/45 (59) 100 12/16/18 13:15 71 31 85/44 (58) 100 12/16/18 13:00 71 31 91/48 (62) 100 12/16/18 13:00 86/48 12/16/18 12:30 T-piece 12.0 40 12/16/18 12:30 100 T-piece 12.0 40 12/16/18 12:30 99.6 72 31 90/47 (61) 100 12/16/18 12:00 68 12/16/18 12:00 T-piece 12.0 12/16/18 12:00 12.0 40 12/16/18 12:00 97/49 12/16/18 12:00 78 31 91/48 (62) 100 12/16/18 11:30 78 26 109/69 (82) 100 12/16/18 11:00 81 27 95/45 (62) 100 12/16/18 10:30 81 27 103/54 (70) 100 12/16/18 10:00 86 30 112/46 (68) 100 Status: awake Condition: critical HEENT: atraumatic Lungs: chest wall tender Heart: HR/BP stable Abdomen: non-tender, active bowel sounds Extremities: no C/C/E Micro: Microbiology Date/Time Source Procedure Growth Status 12/15/18 12:55 Blood Blood Culture - Preliminary Resulted 12/15/18 12:40 Blood Blood Culture - Preliminary NO GROWTH AFTER 24 HOURS Resulted 12/17/18 03:00 Nasopharynx - Final Complete 12/17/18 03:00 Nasopharynx - Final Complete 12/16/18 20:30 Indwelling Cath Urine Culture - Preliminary NO GROWTH AFTER 24 HOURS Resulted 12/15/18 13:25 Rectum VRE Culture - Final Enterococcus Faecalis - Vre Resulted 12/15/18 13:25 Rectum Pending Resulted Critical Care - Subjective ROS Limited/Unobtainable: Yes Interval Events: on Dopamin Condition: critical EKG Rhythm: Sinus Rhythm FI02: 40 Sputum Amount: Scant Tube Feeding Amount: 30 I&O: Intake and Output 12/16/18 12/17/18 18:59 06:59 Intake Total 1490.0 ml 2569.963 ml Output Total 650 ml 1290 ml Balance 840.0 ml 1279.963 ml Intake Free Water 60 ml 120 ml IV Total 1070.0 ml 2089.963 ml Tube Feeding 360 ml 360 ml Output Urine Total 650 ml 1290 ml Labs: Laboratory Tests Test 12/16/18 20:30 12/17/18 00:00 12/17/18 03:00 12/17/18 04:00 Urine Legionella Antigen Pending Vancomycin Level Trough 7.3 ug/mL (5.0-12.0) Random Amikacin Level 3.8 ug/mL White Blood Count 11.7 K/UL (4.8-10.8) H Red Blood Count 3.70 M/UL (4.20-5.40) L Hemoglobin 11.2 G/DL (12.0-16.0) L Hematocrit 34.2 % (37.0-47.0) L Mean Corpuscular Volume 92 FL (80-99) Mean Corpuscular Hemoglobin 30.2 PG (27.0-31.0) Mean Corpuscular Hemoglobin Concent 32.8 G/DL (32.0-36.0) Red Cell Distribution Width 13.4 % (11.6-14.8) Platelet Count 190 K/UL (150-450) Mean Platelet Volume 7.2 FL (6.5-10.1) Neutrophils (%) (Auto) 79.0 % (45.0-75.0) H Lymphocytes (%) (Auto) 11.5 % (20.0-45.0) L Monocytes (%) (Auto) 6.8 % (1.0-10.0) Eosinophils (%) (Auto) 1.7 % (0.0-3.0) Basophils (%) (Auto) 1.0 % (0.0-2.0) Sodium Level 140 MMOL/L (136-145) Potassium Level 2.8 MMOL/L (3.5-5.1) L Chloride Level 102 MMOL/L (98-107) Carbon Dioxide Level 31 MMOL/L (21-32) Anion Gap 5 mmol/L (5-15) Blood Urea Nitrogen 7 mg/dL (7-18) Creatinine 0.5 MG/DL (0.55-1.30) L Estimat Glomerular Filtration Rate > 60 mL/min (>60) Glucose Level 129 MG/DL (74-106) H Calcium Level 8.1 MG/DL (8.5-10.1) L Total Bilirubin 0.2 MG/DL (0.2-1.0) Aspartate Amino Transf (AST/SGOT) 22 U/L (15-37) Alanine Aminotransferase (ALT/SGPT) 30 U/L (12-78) Alkaline Phosphatase 93 U/L (46-116) Pro-B-Type Natriuretic Peptide 1783 pg/mL (0-125) H Total Protein 6.6 G/DL (6.4-8.2) Albumin 1.8 G/DL (3.4-5.0) L Globulin 4.8 g/dL Albumin/Globulin Ratio 0.4 (1.0-2.7) L Leigh Ch MD December 17, 2018 09:56
--- NOTE | 2018-12-17 10:42 | GI Initial Consult Note ---
History of Present Illness General Date patient seen: December 17, 2018 Time patient seen: 10:36 Reason for Hospitalization: Fever Referring physician: PATRICIA CASTANON Reason for Consultation: abdominal cellulitis Present Illness HPI Patient is a 63-year-old female brought in by ambulance after increased fever and abdominal redness. Patient was noted to have prior history of chronic respiratory failure and tracheostomy tube as well as encephalopathy. Patient was noted to have temperature up to 102.3 at her facility associated with cellulitis area on the posterior trunk as well as the bilateral lower extremities. Patient was given Tylenol at 8 AM. Patient had been sent to the hospital for further evaluation of possible sepsis. Patient was noted to be hypotensive by ambulance transporting team GI consulted for G-tube evaluation and possible replacement. ROS limited, patient seen awake and alert. Nonverbal at baseline. Tracheostomy and G-tube dependent. GT site assessed and noted with cellulitis and leakage. Labs reviewed; hemoglobin 11.2, no transaminitis, no hypercoagulation, no leukocytosis. Home Meds Active Scripts Cefepime Hcl/D5w (CEFEPIME-DEXTROSE 1 GM/50 ML) 1 Gm/50 Ml Piggyback, 1 GM IVPB EVERY 12 HOURS for 4 Days, BAG Prov:Leigh Ch MD 02/19/17 Reported Medications Levetiracetam (KEPPRA) 500 Mg Tablet, 1500 MG GT EVERY 12 HOURS, #60 TAB 0 Refills 02/16/17 Ascorbic Acid* (VITAMIN C*) 500 Mg Tablet, 500 MG GT DAILY, #30 TAB 0 Refills 11/24/15 Acetaminophen (Acetaminophen) 650 Mg/20.3 Ml Soln, 650 MG GT Q6H PRN for Prn Headache/Temp > 101, ML 0 Refills 11/24/15 Levothyroxine Sodium* (SYNTHROID*) 100 Mcg Tablet, 100 MCG GT DAILY, TAB Take in the morning on an empty stomach, at least 30 minutes before food. 11/24/15 Protein Supplement (PROMOD) 946 Ml Liquid, 30 ML GT TWICE A DAY, ML 11/24/15 Multivits W-Min/Ferrous Gluc (MULTIVITAMIN-MINERAL LIQUID) 9 Mg/15 Ml Liquid, 30 ML GT DAILY, ML 11/24/15 Magnesium Hydroxide* (MILK OF MAGNESIA*) 400 Mg/5 Ml Oral.susp, 30 ML GT DAILY, ML 11/24/15 Na Phos,M-B/Na Phos,Di-Ba* (FLEET ENEMA*) 133 Ml Enema, 133 ML RECTAL DAILY, ML 0 Refills 11/24/15 Bisacodyl (DULCOLAX) 10 Mg Supp.rect, 10 MG RC, SUPP 11/24/15 Albuterol Sulfate* (ALBUTEROL SULFATE HHN*) 2.5 Mg/3 Ml Vial.neb, 3 ML INH Q6H PRN for Shortness of Breath, #30 EA 0 Refills 11/24/15 Midodrine (Midodrine HCl) 10 Mg Tab, 10 MG ORAL TID, TAB 01/18/15 Zinc Sulfate (ZINC SULFATE*) 220 Mg Capsule, 220 MG GT DAILY, CAP 0 Refills 05/21/14 Valproate Sodium (VALPROIC ACID) 500 Mg/10 Ml Solution, 800 MG GT EVERY 8 HOURS , ML 05/21/14 Cranberry Extract (CRANBERRY) 425 Mg Capsule, 425 MG GT DAILY, CAP 05/21/14 Docusate Sodium (Docusate Sodium) 100 Mg/10 Ml Udc, 100 MG GT DAILY, EA 05/21/14 Phenobarbital* (PHENOBARBITAL*) 30 Mg Tablet, 40 MG GT EVERY 12 HOURS, #30 TAB 0 Refills 04/14/14 Esomeprazole Magnesium (NEXIUM) 40 Mg Capsule.dr, 40 MG GT DAILY, CAP 04/14/14 Folic Acid* (FOLIC ACID*) 1 Mg Tablet, 1 MG GT DAILY, TAB 04/14/14 Diphenhydramine Hcl* (DIPHENHYDRAMINE HCL*) 25 Mg Capsule, 50 MG ORAL DAILY PRN for Itching, #30 CAP 0 Refills 04/14/14 Med list reviewed/reconciled: Yes Allergies: Coded Allergies: No Known Allergies (Unverified , 04/14/14) Patient History Limited by: medical condition History Provided By: Medical Record Social History: Denies: smoking, alcohol use, drug use, other Review of Systems All Other Systems: limited Physical Exam Vital Signs Date Time Temp Pulse Resp B/P (MAP) Pulse Ox O2 Delivery O2 Flow Rate FiO2 12/15/18 11:46 99.5 78 18 95 Trach Collar 5.0 12/15/18 12:00 99/60 12/15/18 16:00 40 Sp02 EP Interpretation: reviewed, normal Labs Laboratory Tests Test 12/16/18 20:30 12/17/18 00:00 12/17/18 03:00 12/17/18 04:00 Urine Legionella Antigen Pending Vancomycin Level Trough 7.3 ug/mL (5.0-12.0) Random Amikacin Level 3.8 ug/mL White Blood Count 11.7 K/UL (4.8-10.8) H Red Blood Count 3.70 M/UL (4.20-5.40) L Hemoglobin 11.2 G/DL (12.0-16.0) L Hematocrit 34.2 % (37.0-47.0) L Mean Corpuscular Volume 92 FL (80-99) Mean Corpuscular Hemoglobin 30.2 PG (27.0-31.0) Mean Corpuscular Hemoglobin Concent 32.8 G/DL (32.0-36.0) Red Cell Distribution Width 13.4 % (11.6-14.8) Platelet Count 190 K/UL (150-450) Mean Platelet Volume 7.2 FL (6.5-10.1) Neutrophils (%) (Auto) 79.0 % (45.0-75.0) H Lymphocytes (%) (Auto) 11.5 % (20.0-45.0) L Monocytes (%) (Auto) 6.8 % (1.0-10.0) Eosinophils (%) (Auto) 1.7 % (0.0-3.0) Basophils (%) (Auto) 1.0 % (0.0-2.0) Sodium Level 140 MMOL/L (136-145) Potassium Level 2.8 MMOL/L (3.5-5.1) L Chloride Level 102 MMOL/L (98-107) Carbon Dioxide Level 31 MMOL/L (21-32) Anion Gap 5 mmol/L (5-15) Blood Urea Nitrogen 7 mg/dL (7-18) Creatinine 0.5 MG/DL (0.55-1.30) L Estimat Glomerular Filtration Rate > 60 mL/min (>60) Glucose Level 129 MG/DL (74-106) H Calcium Level 8.1 MG/DL (8.5-10.1) L Total Bilirubin 0.2 MG/DL (0.2-1.0) Aspartate Amino Transf (AST/SGOT) 22 U/L (15-37) Alanine Aminotransferase (ALT/SGPT) 30 U/L (12-78) Alkaline Phosphatase 93 U/L (46-116) Pro-B-Type Natriuretic Peptide 1783 pg/mL (0-125) H Total Protein 6.6 G/DL (6.4-8.2) Albumin 1.8 G/DL (3.4-5.0) L Globulin 4.8 g/dL Albumin/Globulin Ratio 0.4 (1.0-2.7) L General Appearance: no apparent distress Head: normocephalic EENT: PERRL/EOMI, normal ENT inspection Neck: supple Respiratory: normal breath sounds, no respiratory distress, other - tracheostomy Cardiovascular: normal rate Gastrointestinal: normal inspection, non tender, soft, normal bowel sounds, non -distended, gt Rectal: deferred Genitourinary: no CVA tenderness Musculoskeletal: normal inspection, back normal Neurologic: alert, responsive Skin: normal inspection, normal color, no rash, warm/dry, palpation normal, well hydrated Lymphatic: normal inspection, no adenopathy Current Medications Current Medications Medications (Trade) Dose Ordered Sig/Neo Route PRN Reason Start Time Stop Time Status Last Admin Dose Admin Acetaminophen (Tylenol) 650 mg Q4H PRN ORAL fever 12/15/18 14:00 01/14/19 13:59 12/17/18 05:48 Albuterol/ Ipratropium (Albuterol/ Ipratropium) 3 ml Q4H PRN HHN Shortness of Breath 12/15/18 14:00 12/20/18 13:59 Amikacin Protocol (Amikacin pharmacy to dose) 1 ea DAILY PRN MISC Per rx protocol 12/16/18 10:45 01/15/19 10:44 Amikacin Sulfate 1000 mg/Sodium Chloride 114 ml @ 114 mls/hr Q24H IV 12/17/18 14:00 12/23/18 13:59 Cefepime HCl 2 gm/ Dextrose 110 ml @ 220 mls/hr Q24H IV 12/16/18 01:00 12/23/18 00:59 12/17/18 00:52 Chlorhexidine Gluconate (Cathleen-Hex 2%) 1 applic DAILY@1999 TOPIC 12/15/18 20:00 01/14/19 19:59 12/16/18 20:24 Dopamine HCl/ Dextrose 250 ml @ 0 mls/hr Q24H IV 12/16/18 18:00 01/15/19 17:59 12/17/18 09:00 Heparin Sodium (Porcine) (Heparin 5000 units/ml) 5,000 units EVERY 12 HOURS SUBQ 12/15/18 21:00 01/14/19 20:59 12/17/18 09:11 Levothyroxine Sodium (Synthroid) 100 mcg DAILY@0630 ORAL 12/17/18 06:30 01/16/19 06:29 12/17/18 05:48 Morphine Sulfate (Morphine Sulfate) 2 mg Q4H PRN IVP Moderate Pain (Pain Scale 4-6) 12/15/18 14:00 12/22/18 13:59 Norepinephrine Bitartrate 4 mg/ Dextrose 250 ml @ 0 mls/hr Q24H IV 12/15/18 19:07 01/14/19 19:06 12/16/18 05:50 Ondansetron HCl (Zofran) 4 mg Q6H PRN IVP Nausea & Vomiting 12/15/18 14:00 01/14/19 13:59 Polyethylene Glycol (Miralax) 17 gm DAILYPRN PRN ORAL Constipation 12/15/18 14:00 01/14/19 13:59 Sodium Chloride 1,000 ml @ 100 mls/hr Q10H IV 12/16/18 10:45 01/15/19 10:44 12/17/18 05:45 Temazepam (Restoril) 15 mg HSPRN PRN ORAL Insomnia 12/15/18 14:00 12/22/18 13:59 Vancomycin HCl (Vanco rx to dose) 1 ea DAILY PRN MISC PER PHARMACY 12/15/18 14:15 01/14/19 14:14 Vancomycin HCl 1 gm/Dextrose 275 ml @ 183.708 mls/hr Q8H IVPB 12/17/18 02:00 12/22/18 01:59 12/17/18 01:42 GI: Plan Problems: (1) Leaking PEG tube (2) Tracheostomy dependent (3) Abdominal wall cellulitis Plan G-tube to be replaced by bedside. GT site care daily and as needed Zinc oxide around the GT site G-tube feedings per RD PRN transfusions Zofran as needed Reglan as needed for GI motility follow labs Discussed with Dr. Quinn. Thank you for this patient referral, we will follow. The patient was seen and examined at bedside and all new and available data was reviewed in the patients chart. I agree with the above findings, impression and plan. (Patient seen earlier today. Signature stamp does not reflect patient encounter time.). - MD Della Branch AnhMonserrat [employer] MA[employer]GER December 17, 2018 10:42
--- NOTE | 2018-12-17 11:36 | Infectious Diseases Prog Note ---
Assessment/Plan Assessment/Plan Abx: IV Vancomycin 12/15- Cefepime 12/15- Amikacin 12/16- Flagyl x 1 12/15 Assessment: Septic shock -likely 2ry to PNA -CXR: Mild basal atelectasis. -u/a no pyuria, nit eg, leuk +1 -CT abd/p w/: Patchy posterior basilar consolidation. Consider pneumonia. Small bilateral pleural effusions noted. Artifact limiting evaluation of the upper abdomen. Possible tiny nonobstructive stone in the right kidney. Gastrostomy in good position. Question of a tiny gallstone. Heterogeneous uterus nonspecific. Calvarial bone flap in the right lower quadrant of the abdomen. -influenza sc neg -sp cx, legionella ag urine p Gram positive bacteremia- contaminant vs real -Bcx 08/07 GPC clusters Low grade fever; improvnig Leukocytosis; resolving Irregular/blanching erythematous rash (LE, lower abdomen)- ?erypsipelas vs 1ry dermatological rash (not infectious) vegetative state anoxic encephalopathy COPD DM2 seizure disorder anemia hypothyroidisim CVA chronic vent PEG shelter resident Plan: -Continue empiric IV Vancomycin #3, Cefepime #3 and IV Amikacin #2 pending cultures -sp cx -f/u cx -Monitor CBC/CMP, temperatures -PEG/Trach/ICU care -wound care per surgical team -Bcx x2 Thank you for this consultation. Will continue to follow along with you. Discussed with RN. Subjective Allergies: Coded Allergies: No Known Allergies (Unverified , 04/14/14) Subjective Tm 100.3; afebrile ~24hrs leukocytosis resolving levophed changed to dopamine bacteremic Objective Vital Signs Last 24 Hour Vital Signs Date Time Temp Pulse Resp B/P (MAP) Pulse Ox O2 Delivery O2 Flow Rate FiO2 12/17/18 11:00 75 24 96/50 (65) 98 12/17/18 10:00 75 27 97/51 (66) 100 12/17/18 09:00 84/46 12/17/18 09:00 89 27 84/46 (59) 100 12/17/18 08:00 T-piece 12.0 12/17/18 08:00 80 12/17/18 08:00 12.0 40 12/17/18 08:00 97.9 83 25 120/80 (93) 98 12/17/18 07:20 T-piece 12.0 40 12/17/18 07:20 71 22 T-piece 12.0 40 12/17/18 07:20 100 T-piece 12.0 40 12/17/18 07:00 71 27 119/82 (94) 100 12/17/18 06:00 73 21 97/57 (70) 100 12/17/18 05:00 77 31 111/66 (81) 98 12/17/18 04:00 99.0 74 19 100/56 (71) 95 12/17/18 04:00 T-piece 12.0 12/17/18 04:00 74 12/17/18 04:00 12.0 40 12/17/18 03:00 73 27 98/59 (72) 96 12/17/18 02:30 74 30 112/66 (81) 95 12/17/18 02:00 74 30 112/66 (81) 95 12/17/18 01:30 69 25 88/42 (57) 98 12/17/18 01:15 T-piece 12.0 40 12/17/18 01:15 100 T-piece 12.0 40 12/17/18 01:00 70 25 99/61 (74) 99 12/17/18 00:30 74 24 98/52 (67) 100 12/17/18 00:00 87 12/17/18 00:00 98.8 76 17 110/50 (70) 94 12/17/18 00:00 12.0 40 12/17/18 00:00 T-piece 12.0 12/16/18 23:30 67 25 89/49 (62) 95 12/16/18 23:00 68 22 85/51 (62) 93 12/16/18 22:30 70 28 87/47 (60) 95 12/16/18 22:00 65 25 89/56 (67) 97 12/16/18 21:30 86 21 104/81 (89) 100 12/16/18 21:00 66 26 103/60 (74) 98 12/16/18 20:30 83 25 113/68 (83) 99 12/16/18 20:00 99.3 79 29 95/56 (69) 86 12/16/18 20:00 T-piece 12.0 12/16/18 20:00 12.0 40 12/16/18 20:00 66 12/16/18 19:30 98 32 112/67 (82) 100 12/16/18 19:06 98 T-piece 12.0 40 12/16/18 19:06 T-piece 12.0 40 12/16/18 19:06 81 25 T-piece 12.0 40 12/16/18 19:00 76 22 97/48 (64) 100 12/16/18 18:30 85 22 108/55 (72) 97 12/16/18 18:15 52 24 91/46 (61) 100 12/16/18 18:13 101/50 12/16/18 18:00 54 29 92/44 (60) 100 12/16/18 17:30 60 29 92/44 (60) 100 12/16/18 17:00 114/62 12/16/18 17:00 65 24 110/54 (72) 100 12/16/18 16:30 68 29 109/51 (70) 100 12/16/18 16:00 12.0 40 12/16/18 16:00 T-piece 12.0 12/16/18 16:00 120/80 12/16/18 16:00 72 12/16/18 16:00 77 29 117/84 (95) 100 12/16/18 15:30 98.8 63 29 102/50 (67) 100 12/16/18 15:00 67 29 99/53 (68) 100 12/16/18 14:30 64 29 100/52 (68) 100 12/16/18 14:00 67 30 91/46 (61) 100 12/16/18 14:00 91/46 12/16/18 13:45 70 30 93/48 (63) 100 12/16/18 13:30 100.3 68 32 86/45 (59) 100 12/16/18 13:15 71 31 85/44 (58) 100 12/16/18 13:00 71 31 91/48 (62) 100 12/16/18 13:00 86/48 12/16/18 12:30 T-piece 12.0 40 12/16/18 12:30 100 T-piece 12.0 40 12/16/18 12:30 99.6 72 31 90/47 (61) 100 12/16/18 12:00 68 12/16/18 12:00 T-piece 12.0 12/16/18 12:00 12.0 40 12/16/18 12:00 97/49 12/16/18 12:00 78 31 91/48 (62) 100 Height (Feet): 5 Height (Inches): 5.00 Weight (Pounds): 187 Objective General Appearance: no apparent distress Lines, tubes and drains: peripheral HEENT: normocephalic, mucous membranes moist Neck: normal inspection Respiratory/Chest: no respiratory distress, no accessory muscle use, decreased breath sounds, other Cardiovascular/Chest: tachycardia, other Abdomen: no organomegaly, no mass, hypoactive bowel sounds, other - cellulitis Extremities: normal inspection Skin Exam: warm/dry, erythematous patches, blanchin in a irregular fashion on b /l Legs, thighs and lower abdomen Microbiology Date/Time Source Procedure Growth Status 12/15/18 12:55 Blood Blood Culture - Preliminary Resulted 12/15/18 12:40 Blood Blood Culture - Preliminary NO GROWTH AFTER 24 HOURS Resulted 12/17/18 03:00 Nasopharynx - Final Complete 12/17/18 03:00 Nasopharynx - Final Complete 12/15/18 13:25 Nasal Nares MRSA Culture - Final NO METHICILLIN RESISTANT STAPH AUREUS... Complete 12/16/18 20:30 Indwelling Cath Urine Culture - Preliminary NO GROWTH AFTER 24 HOURS Resulted 12/15/18 13:25 Rectum VRE Culture - Final Enterococcus Faecalis - Vre Resulted 12/15/18 13:25 Rectum Pending Resulted Laboratory Tests Test 12/16/18 20:30 12/17/18 00:00 12/17/18 03:00 12/17/18 04:00 Urine Legionella Antigen Pending Vancomycin Level Trough 7.3 ug/mL (5.0-12.0) Random Amikacin Level 3.8 ug/mL White Blood Count 11.7 K/UL (4.8-10.8) H Red Blood Count 3.70 M/UL (4.20-5.40) L Hemoglobin 11.2 G/DL (12.0-16.0) L Hematocrit 34.2 % (37.0-47.0) L Mean Corpuscular Volume 92 FL (80-99) Mean Corpuscular Hemoglobin 30.2 PG (27.0-31.0) Mean Corpuscular Hemoglobin Concent 32.8 G/DL (32.0-36.0) Red Cell Distribution Width 13.4 % (11.6-14.8) Platelet Count 190 K/UL (150-450) Mean Platelet Volume 7.2 FL (6.5-10.1) Neutrophils (%) (Auto) 79.0 % (45.0-75.0) H Lymphocytes (%) (Auto) 11.5 % (20.0-45.0) L Monocytes (%) (Auto) 6.8 % (1.0-10.0) Eosinophils (%) (Auto) 1.7 % (0.0-3.0) Basophils (%) (Auto) 1.0 % (0.0-2.0) Sodium Level 140 MMOL/L (136-145) Potassium Level 2.8 MMOL/L (3.5-5.1) L Chloride Level 102 MMOL/L (98-107) Carbon Dioxide Level 31 MMOL/L (21-32) Anion Gap 5 mmol/L (5-15) Blood Urea Nitrogen 7 mg/dL (7-18) Creatinine 0.5 MG/DL (0.55-1.30) L Estimat Glomerular Filtration Rate > 60 mL/min (>60) Glucose Level 129 MG/DL (74-106) H Calcium Level 8.1 MG/DL (8.5-10.1) L Total Bilirubin 0.2 MG/DL (0.2-1.0) Aspartate Amino Transf (AST/SGOT) 22 U/L (15-37) Alanine Aminotransferase (ALT/SGPT) 30 U/L (12-78) Alkaline Phosphatase 93 U/L (46-116) Pro-B-Type Natriuretic Peptide 1783 pg/mL (0-125) H Total Protein 6.6 G/DL (6.4-8.2) Albumin 1.8 G/DL (3.4-5.0) L Globulin 4.8 g/dL Albumin/Globulin Ratio 0.4 (1.0-2.7) L Current Medications Medications (Trade) Dose Ordered Sig/Neo Route PRN Reason Start Time Stop Time Status Last Admin Dose Admin Acetaminophen (Tylenol) 650 mg Q4H PRN ORAL fever 12/15/18 14:00 01/14/19 13:59 12/17/18 05:48 Albuterol/ Ipratropium (Albuterol/ Ipratropium) 3 ml Q4H PRN HHN Shortness of Breath 12/15/18 14:00 12/20/18 13:59 Amikacin Protocol (Amikacin pharmacy to dose) 1 ea DAILY PRN MISC Per rx protocol 12/16/18 10:45 01/15/19 10:44 Amikacin Sulfate 1000 mg/Sodium Chloride 114 ml @ 114 mls/hr Q24H IV 12/17/18 14:00 12/23/18 13:59 Aspirin (Ecotrin) 81 mg DAILY ORAL 12/17/18 11:30 01/16/19 11:29 Atorvastatin Calcium (Lipitor) 20 mg BEDTIME ORAL 12/17/18 21:00 01/16/19 20:59 Cefepime HCl 2 gm/ Dextrose 110 ml @ 220 mls/hr Q24H IV 12/16/18 01:00 12/23/18 00:59 12/17/18 00:52 Chlorhexidine Gluconate (Cathleen-Hex 2%) 1 applic DAILY@2000 TOPIC 12/15/18 20:00 01/14/19 19:59 12/16/18 20:24 Dopamine HCl/ Dextrose 250 ml @ 0 mls/hr Q24H IV 12/16/18 18:00 01/15/19 17:59 12/17/18 09:00 Heparin Sodium (Porcine) (Heparin 5000 units/ml) 5,000 units EVERY 12 HOURS SUBQ 12/15/18 21:00 01/14/19 20:59 12/17/18 09:11 Levothyroxine Sodium (Synthroid) 100 mcg DAILY@0630 ORAL 12/17/18 06:30 01/16/19 06:29 12/17/18 05:48 Morphine Sulfate (Morphine Sulfate) 2 mg Q4H PRN IVP Moderate Pain (Pain Scale 4-6) 12/15/18 14:00 12/22/18 13:59 Norepinephrine Bitartrate 4 mg/ Dextrose 250 ml @ 0 mls/hr Q24H IV 12/15/18 19:07 01/14/19 19:06 12/16/18 05:50 Ondansetron HCl (Zofran) 4 mg Q6H PRN IVP Nausea & Vomiting 12/15/18 14:00 01/14/19 13:59 Polyethylene Glycol (Miralax) 17 gm DAILYPRN PRN ORAL Constipation 12/15/18 14:00 01/14/19 13:59 Sodium Chloride 1,000 ml @ 100 mls/hr Q10H IV 12/16/18 10:45 01/15/19 10:44 12/17/18 05:45 Temazepam (Restoril) 15 mg HSPRN PRN ORAL Insomnia 12/15/18 14:00 12/22/18 13:59 Vancomycin HCl (Vanco rx to dose) 1 ea DAILY PRN MISC PER PHARMACY 12/15/18 14:15 01/14/19 14:14 Vancomycin HCl 1 gm/Dextrose 275 ml @ 183.708 mls/hr Q8H IVPB 12/17/18 02:00 12/22/18 01:59 12/17/18 10:51 Misti De Santiago M.D. December 17, 2018 11:36
--- NOTE | 2018-12-17 11:36 | Diagnostic Imaging Report ---
Indication: Dyspnea Comparison: 12/15/2018 A single view chest radiograph was obtained. Findings: Pulmonary vascular congestion demonstrated. Heart is mildly enlarged. Subclavian line and tracheostomy appear unchanged. IMPRESSION: Suspected CHF. Correlate clinically
[2018-12-17] MEDS: Aspirin EC 81mg tab ORAL SCH (11:59)
--- NOTE | 2018-12-17 14:14 | Surgery Progress Note ---
Surgery Progress Note Subjective Additional Comments fevers improved. labs noted and leukocytosis trending down. exam stable. Objective Last 24 Hour Vital Signs Date Time Temp Pulse Resp B/P (MAP) Pulse Ox O2 Delivery O2 Flow Rate FiO2 12/17/18 13:00 68 22 85/52 (63) 98 12/17/18 12:30 100 T-piece 12.0 40 12/17/18 12:30 T-piece 12.0 40 12/17/18 12:08 80 12/17/18 12:00 98.6 71 21 90/54 (66) 100 12/17/18 12:00 12.0 40 12/17/18 12:00 T-piece 12.0 12/17/18 11:30 85 24 96/52 (67) 98 12/17/18 11:00 75 24 96/50 (65) 98 12/17/18 10:30 77 27 93/50 (64) 100 12/17/18 10:00 75 27 97/51 (66) 100 12/17/18 09:45 75 27 94/49 (64) 100 12/17/18 09:30 75 27 98/48 (65) 100 12/17/18 09:15 84 27 107/53 (71) 100 12/17/18 09:00 84/46 12/17/18 09:00 89 27 84/46 (59) 100 12/17/18 08:00 T-piece 12.0 12/17/18 08:00 80 12/17/18 08:00 12.0 40 12/17/18 08:00 97.9 83 25 120/80 (93) 98 12/17/18 07:20 T-piece 12.0 40 12/17/18 07:20 71 22 T-piece 12.0 40 12/17/18 07:20 100 T-piece 12.0 40 12/17/18 07:00 71 27 119/82 (94) 100 12/17/18 06:00 73 21 97/57 (70) 100 12/17/18 05:00 77 31 111/66 (81) 98 12/17/18 04:00 99.0 74 19 100/56 (71) 95 12/17/18 04:00 T-piece 12.0 12/17/18 04:00 74 12/17/18 04:00 12.0 40 12/17/18 03:00 73 27 98/59 (72) 96 12/17/18 02:30 74 30 112/66 (81) 95 12/17/18 02:00 74 30 112/66 (81) 95 12/17/18 01:30 69 25 88/42 (57) 98 12/17/18 01:15 T-piece 12.0 40 12/17/18 01:15 100 T-piece 12.0 40 12/17/18 01:00 70 25 99/61 (74) 99 12/17/18 00:30 74 24 98/52 (67) 100 12/17/18 00:00 87 12/17/18 00:00 98.8 76 17 110/50 (70) 94 12/17/18 00:00 12.0 40 12/17/18 00:00 T-piece 12.0 12/16/18 23:30 67 25 89/49 (62) 95 12/16/18 23:00 68 22 85/51 (62) 93 12/16/18 22:30 70 28 87/47 (60) 95 12/16/18 22:00 65 25 89/56 (67) 97 12/16/18 21:30 86 21 104/81 (89) 100 12/16/18 21:00 66 26 103/60 (74) 98 12/16/18 20:30 83 25 113/68 (83) 99 12/16/18 20:00 99.3 79 29 95/56 (69) 86 12/16/18 20:00 T-piece 12.0 12/16/18 20:00 12.0 40 12/16/18 20:00 66 12/16/18 19:30 98 32 112/67 (82) 100 12/16/18 19:06 98 T-piece 12.0 40 12/16/18 19:06 T-piece 12.0 40 12/16/18 19:06 81 25 T-piece 12.0 40 12/16/18 19:00 76 22 97/48 (64) 100 12/16/18 18:30 85 22 108/55 (72) 97 12/16/18 18:15 52 24 91/46 (61) 100 12/16/18 18:13 101/50 12/16/18 18:00 54 29 92/44 (60) 100 12/16/18 17:30 60 29 92/44 (60) 100 12/16/18 17:00 114/62 12/16/18 17:00 65 24 110/54 (72) 100 12/16/18 16:30 68 29 109/51 (70) 100 12/16/18 16:00 12.0 40 12/16/18 16:00 T-piece 12.0 12/16/18 16:00 120/80 12/16/18 16:00 72 12/16/18 16:00 77 29 117/84 (95) 100 12/16/18 15:30 98.8 63 29 102/50 (67) 100 12/16/18 15:00 67 29 99/53 (68) 100 12/16/18 14:30 64 29 100/52 (68) 100 I&O Intake and Output 12/16/18 12/17/18 19:00 07:00 Intake Total 1989.77 ml 2155.193 ml Output Total 650 ml 1250 ml Balance 1339.77 ml 905.193 ml Intake Free Water 60 ml 120 ml IV Total 1569.77 ml 1675.193 ml Tube Feeding 360 ml 360 ml Output Urine Total 650 ml 1250 ml Dressing: dry Wound: clean Drains: other Cardiovascular: RSR Respiratory: clear Abdomen: soft, non-tender, present bowel sounds, non-distended Extremities: no tenderness, no cyanosis Laboratory Tests Test 12/16/18 20:30 12/17/18 00:00 12/17/18 03:00 12/17/18 04:00 Urine Legionella Antigen Pending Vancomycin Level Trough 7.3 ug/mL (5.0-12.0) Random Amikacin Level 3.8 ug/mL White Blood Count 11.7 K/UL (4.8-10.8) H Red Blood Count 3.70 M/UL (4.20-5.40) L Hemoglobin 11.2 G/DL (12.0-16.0) L Hematocrit 34.2 % (37.0-47.0) L Mean Corpuscular Volume 92 FL (80-99) Mean Corpuscular Hemoglobin 30.2 PG (27.0-31.0) Mean Corpuscular Hemoglobin Concent 32.8 G/DL (32.0-36.0) Red Cell Distribution Width 13.4 % (11.6-14.8) Platelet Count 190 K/UL (150-450) Mean Platelet Volume 7.2 FL (6.5-10.1) Neutrophils (%) (Auto) 79.0 % (45.0-75.0) H Lymphocytes (%) (Auto) 11.5 % (20.0-45.0) L Monocytes (%) (Auto) 6.8 % (1.0-10.0) Eosinophils (%) (Auto) 1.7 % (0.0-3.0) Basophils (%) (Auto) 1.0 % (0.0-2.0) Sodium Level 140 MMOL/L (136-145) Potassium Level 2.8 MMOL/L (3.5-5.1) L Chloride Level 102 MMOL/L (98-107) Carbon Dioxide Level 31 MMOL/L (21-32) Anion Gap 5 mmol/L (5-15) Blood Urea Nitrogen 7 mg/dL (7-18) Creatinine 0.5 MG/DL (0.55-1.30) L Estimat Glomerular Filtration Rate > 60 mL/min (>60) Glucose Level 129 MG/DL (74-106) H Calcium Level 8.1 MG/DL (8.5-10.1) L Total Bilirubin 0.2 MG/DL (0.2-1.0) Aspartate Amino Transf (AST/SGOT) 22 U/L (15-37) Alanine Aminotransferase (ALT/SGPT) 30 U/L (12-78) Alkaline Phosphatase 93 U/L (46-116) Pro-B-Type Natriuretic Peptide 1783 pg/mL (0-125) H Total Protein 6.6 G/DL (6.4-8.2) Albumin 1.8 G/DL (3.4-5.0) L Globulin 4.8 g/dL Albumin/Globulin Ratio 0.4 (1.0-2.7) L Plan Problems: (1) Lactic acid acidosis (2) UTI (lower urinary tract infection) (3) Septic shock Assessment & Plan: diffuse rash noted on arms, trunk legs abdominal wall superficial cellulitis leukocytosis fevers No acute surgical intervention planned IV abx trend labs will follow with exam and recs thank you (4) Pneumonia (5) Hypothyroidism (6) Hypotension (7) Acute on chronic respiratory failure (8) Hypernatremia (9) Hypokalemia (10) COPD (chronic obstructive pulmonary disease) (11) Seizure disorder (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 Full thickness pressure injury sacrococcygeal area. Base of wound pale with callused borders.Non-blanchable erythema periwound with additional partial thickness shearing..(L)1cm x (W)0.6cm x (D)0.2cm. Unstageable pressure injury R buttocks.Base of wound has 80% mixed necrosis / slough,20% viable. Clockwise at 6o'clock an area of induration noted.Small amt seropurulent exudate noted. No odor noted. (L)9 cm x (W)7cm. Periwound indurated with non-blanchable erythema with additional partial thickness wounds. Full thickness pressure injury noted to L buttocks.Base of wound is viable with trace amt of biofilm,(+) maceration along borders. (L)1.4cm x (W)1cm x (D) 0.2cm. Non-blanchable erythema with shearing periwound. Shearing with multiple small partial thickness wounds ,and surrounding darker skin tone without induration noted to R and L ischial areas. Tx.Plan: Cleanse wounds Sacrococcygeal, R and L buttocks with Saline. Apply Therhaoney to each wound.Apply Triad Paste periwound. Cover with Optifoam drsgs. Apply Triad Paste to R and L ischium with each incontinence care. Apply Cavilon Skin Barrier to R and L heels. Ciover each heel with Optifoam drsg. Change every 7 days and prn. APM/JANINE Mattress overlay Reposition at least every 2hours or as tolerated. Off-load heels with pillow. (14) Abdominal wall cellulitis (15) Pressure ulcer Assessment & Plan: Pt presented on admission with multiple pressure injuries.Pt noted to have diffused erythematous rash abd, thoracic area, both thighs,R and L tibias. Full thickness pressure injury sacrococcygeal area. Base of wound pale with callused borders.Non-blanchable erythema periwound with additional partial thickness shearing..(L)1cm x (W)0.6cm x (D)0.2cm. Unstageable pressure injury R buttocks.Base of wound has 80% mixed necrosis / slough,20% viable. Clockwise at 6o'clock an area of induration noted.Small amt seropurulent exudate noted. No odor noted. (L)9 cm x (W)7cm. Periwound indurated with non-blanchable erythema with additional partial thickness wounds. Full thickness pressure injury noted to L buttocks.Base of wound is viable with trace amt of biofilm,(+) maceration along borders. (L)1.4cm x (W)1cm x (D) 0.2cm. Non-blanchable erythema with shearing periwound. Shearing with multiple small partial thickness wounds ,and surrounding darker skin tone without induration noted to R and L ischial areas. Tx.Plan: Cleanse wounds Sacrococcygeal, R and L buttocks with Saline. Apply Therhaoney to each wound.Apply Triad Paste periwound. Cover with Optifoam drsgs. Apply Triad Paste to R and L ischium with each incontinence care. Apply Cavilon Skin Barrier to R and L heels. Ciover each heel with Optifoam drsg. Change every 7 days and prn. APM/JANINE Mattress overlay Reposition at least every 2hours or as tolerated. Off-load heels with pillow. (16) Chronic respiratory failure (17) Severe sepsis Lazaro Hodges December 17, 2018 14:14
[2018-12-17] MEDS: Amikacin 1,000 MG in NS 110 ML IV SCH (14:16)
--- NOTE | 2018-12-17 14:47 | General Progress Note ---
Assessment/Plan Problem List: (1) UTI (lower urinary tract infection) ICD Codes: N39.0 - UTI (lower urinary tract infection) SNOMED: 6914681 (2) Septic shock ICD Codes: A41.9 - Septic shock; R65.21 - Severe sepsis with septic shock SNOMED: 43746215 (3) Hypotension ICD Codes: I95.9 - Hypotension SNOMED: 45221261 (4) COPD (chronic obstructive pulmonary disease) ICD Codes: J44.9 - Chronic obstructive pulmonary disease, unspecified SNOMED: 76669548 (5) Tracheostomy dependent ICD Codes: Z93.0 - Tracheostomy dependent SNOMED: 768219137 (6) Chronic respiratory failure ICD Codes: J96.10 - Chronic respiratory failure SNOMED: 34111761 (7) Abdominal wall cellulitis ICD Codes: L03.311 - Cellulitis of abdominal wall SNOMED: 64223488 (8) Seizure disorder ICD Codes: G40.909 - Seizure disorder SNOMED: 080009213 Status: unchanged Assessment/Plan: vent abx wound care bp bs seizure control cbc bmp in am ltach eval Subjective Constitutional: Reports: weakness Allergies: Coded Allergies: No Known Allergies (Unverified , 04/14/14) All Systems: reviewed and negative except above Subjective trach vent altered in icu Objective Last 24 Hour Vital Signs Date Time Temp Pulse Resp B/P (MAP) Pulse Ox O2 Delivery O2 Flow Rate FiO2 12/17/18 14:00 72 22 92/42 (59) 98 12/17/18 13:00 68 22 85/52 (63) 98 12/17/18 12:30 100 T-piece 12.0 40 12/17/18 12:30 T-piece 12.0 40 12/17/18 12:08 80 12/17/18 12:00 98.6 71 21 90/54 (66) 100 12/17/18 12:00 12.0 40 12/17/18 12:00 T-piece 12.0 12/17/18 11:30 85 24 96/52 (67) 98 12/17/18 11:00 75 24 96/50 (65) 98 12/17/18 10:30 77 27 93/50 (64) 100 12/17/18 10:00 75 27 97/51 (66) 100 12/17/18 09:45 75 27 94/49 (64) 100 12/17/18 09:30 75 27 98/48 (65) 100 12/17/18 09:15 84 27 107/53 (71) 100 12/17/18 09:00 84/46 12/17/18 09:00 89 27 84/46 (59) 100 12/17/18 08:00 T-piece 12.0 12/17/18 08:00 80 12/17/18 08:00 12.0 40 12/17/18 08:00 97.9 83 25 120/80 (93) 98 12/17/18 07:20 T-piece 12.0 40 12/17/18 07:20 71 22 T-piece 12.0 40 12/17/18 07:20 100 T-piece 12.0 40 12/17/18 07:00 71 27 119/82 (94) 100 12/17/18 06:00 73 21 97/57 (70) 100 12/17/18 05:00 77 31 111/66 (81) 98 12/17/18 04:00 99.0 74 19 100/56 (71) 95 12/17/18 04:00 T-piece 12.0 12/17/18 04:00 74 12/17/18 04:00 12.0 40 12/17/18 03:00 73 27 98/59 (72) 96 12/17/18 02:30 74 30 112/66 (81) 95 12/17/18 02:00 74 30 112/66 (81) 95 12/17/18 01:30 69 25 88/42 (57) 98 12/17/18 01:15 T-piece 12.0 40 12/17/18 01:15 100 T-piece 12.0 40 12/17/18 01:00 70 25 99/61 (74) 99 12/17/18 00:30 74 24 98/52 (67) 100 12/17/18 00:00 87 12/17/18 00:00 98.8 76 17 110/50 (70) 94 12/17/18 00:00 12.0 40 12/17/18 00:00 T-piece 12.0 12/16/18 23:30 67 25 89/49 (62) 95 12/16/18 23:00 68 22 85/51 (62) 93 12/16/18 22:30 70 28 87/47 (60) 95 12/16/18 22:00 65 25 89/56 (67) 97 12/16/18 21:30 86 21 104/81 (89) 100 12/16/18 21:00 66 26 103/60 (74) 98 12/16/18 20:30 83 25 113/68 (83) 99 12/16/18 20:00 99.3 79 29 95/56 (69) 86 12/16/18 20:00 T-piece 12.0 12/16/18 20:00 12.0 40 12/16/18 20:00 66 12/16/18 19:30 98 32 112/67 (82) 100 12/16/18 19:06 98 T-piece 12.0 40 12/16/18 19:06 T-piece 12.0 40 12/16/18 19:06 81 25 T-piece 12.0 40 12/16/18 19:00 76 22 97/48 (64) 100 12/16/18 18:30 85 22 108/55 (72) 97 12/16/18 18:15 52 24 91/46 (61) 100 12/16/18 18:13 101/50 12/16/18 18:00 54 29 92/44 (60) 100 12/16/18 17:30 60 29 92/44 (60) 100 12/16/18 17:00 114/62 12/16/18 17:00 65 24 110/54 (72) 100 12/16/18 16:30 68 29 109/51 (70) 100 12/16/18 16:00 12.0 40 12/16/18 16:00 T-piece 12.0 12/16/18 16:00 120/80 12/16/18 16:00 72 12/16/18 16:00 77 29 117/84 (95) 100 12/16/18 15:30 98.8 63 29 102/50 (67) 100 12/16/18 15:00 67 29 99/53 (68) 100 Intake and Output 12/16/18 12/17/18 19:00 07:00 Intake Total 1989.77 ml 2155.193 ml Output Total 650 ml 1250 ml Balance 1339.77 ml 905.193 ml Intake Free Water 60 ml 120 ml IV Total 1569.77 ml 1675.193 ml Tube Feeding 360 ml 360 ml Output Urine Total 650 ml 1250 ml Laboratory Tests 12/16/18 20:30: Urine Legionella Antigen [Pending] 12/17/18 00:00: Vancomycin Level Trough 7.3 12/17/18 03:00: Random Amikacin Level 3.8 12/17/18 04:00: White Blood Count 11.7H, Red Blood Count 3.70L, Hemoglobin 11.2L, Hematocrit 34.2L, Mean Corpuscular Volume 92, Mean Corpuscular Hemoglobin 30.2, Mean Corpuscular Hemoglobin Concent 32.8, Red Cell Distribution Width 13.4, Platelet Count 190, Mean Platelet Volume 7.2, Neutrophils (%) (Auto) 79.0H, Lymphocytes ( %) (Auto) 11.5L, Monocytes (%) (Auto) 6.8, Eosinophils (%) (Auto) 1.7, Basophils (%) (Auto) 1.0, Sodium Level 140, Potassium Level 2.8L, Chloride Level 102, Carbon Dioxide Level 31, Anion Gap 5, Blood Urea Nitrogen 7, Creatinine 0.5L, Estimat Glomerular Filtration Rate > 60, Glucose Level 129H, Calcium Level 8.1L, Total Bilirubin 0.2, Aspartate Amino Transf (AST/SGOT) 22, Alanine Aminotransferase (ALT/SGPT) 30, Alkaline Phosphatase 93, Pro-B-Type Natriuretic Peptide 1783H, Total Protein 6.6, Albumin 1.8L, Globulin 4.8, Albumin/Globulin Ratio 0.4L Height (Feet): 5 Height (Inches): 5.00 Weight (Pounds): 187 General Appearance: lethargic EENT: normal ENT inspection Neck: normal alignment Cardiovascular: normal peripheral pulses, normal rate, regular rhythm Respiratory/Chest: chest wall non-tender, lungs clear, normal breath sounds Abdomen: normal bowel sounds, non tender, soft Extremities: normal inspection Edema: no edema noted Arm (L), no edema noted Arm (R), no edema noted Leg (L), no edema noted Leg (R), no edema noted Pedal (L), no edema noted Pedal (R), no edema noted Generalized Neurologic: motor weakness Skin: normal pigmentation, warm/dry Seb Mike DO December 17, 2018 14:47
--- NOTE | 2018-12-17 18:30 | Consultation ---
DATE OF CONSULTATION: 12/16/2018 CARDIOLOGY CONSULTATION CONSULTING PHYSICIAN: Vaughn Sahu M.D. REFERRING PHYSICIAN: Seb Mike D.O. REASON FOR CONSULTATION: Management of septic shock. HISTORY OF PRESENT ILLNESS: The patient is a very unfortunate 63-year-old female, who was brought in by ambulance after she was found to have increased fever and abdominal and lower extremity rash. The patient has underlying history of ventilatory-drive respiratory failure status post tracheostomy tube placement as well as PEG placement, history of asthma, hypertension, diabetes mellitus, COPD, MRSA infection as well as VRE, history of stroke, history of seizures, and history of aphasia. In the emergency department, the patient was noted to have a fever of 102.3 degrees Fahrenheit with the presence of a cellulitis on the posterior trunk and bilateral lower extremities. At the time of evaluation in the emergency department, the patient was found to be hypotensive with blood pressure 99/60 mmHg, heart rate was 74. A 12-lead electrocardiogram in the emergency department revealed sinus rhythm, heart rate of [address] and T-wave abnormalities. The patient was admitted to intensive care unit of [facility]. Cardiology consultation was made at the request of Dr. Mike. PAST MEDICAL HISTORY: 1. Anemia. 2. Hypothyroidism. 3. Metabolic encephalopathy. 4. History of chronic respiratory failure, status post tracheostomy tube placement. 5. History of pneumonia in the past. 6. History of COPD. 7. History of diabetes mellitus. 8. History of CVA with neurological deficits. 9. History of gastroesophageal reflux disease. 10. History of seizure disorder. 11. History of dysphagia, status post PEG placement. PAST SURGICAL HISTORY: 1. Tracheostomy tube placement. 2. PEG placement. ALLERGIES: No known drug allergies. MEDICATIONS: List of medication from the nursing facility includes acetaminophen 650 G-tube q.6 h. p.r.n. fever above 101 and headaches, albuterol 3 mL inhaler. q.6 h. p.r.n. shortness of breath, vitamin C 500 mg G-tube daily, Dulcolax 10 mg p.r.n., cefepime 1 g IV piggyback q.12 h., cranberry 425 mg G-tube daily, Benadryl 50 mg G-tube daily p.r.n. itching, Colace 100 mg G-tube daily, Nexium 40 mg G-tube daily, folic acid 1 mg G-tube daily, Keppra 1500 mg G tube q.12 h., Synthroid 100 mcg G-tube daily, milk of magnesia 30 mL G-tube daily, midodrine 10 mg G-tube three times a day, multivitamin liquid 30 mL G-tube daily, Fleet Enema 133 mL rectal daily, phenobarbital 40 mg G-tube q.12 h., protein supplement at 30 mL G-tube twice daily, acid 800 mg G-tube q.8 h., and zinc sulfate 220 mg G-tube daily. SOCIAL HISTORY: No history of tobacco, alcohol, or illicit drugs. Resident of a nursing facility. PHYSICAL EXAMINATION: VITAL SIGNS: Blood pressure at time of arrival to the hospital 99/60, pulse 74, respirations 36, and temperature 99.2 degrees Fahrenheit. O2 saturation is 96% with O2 flow rate of 10. GENERAL: The patient is a very unfortunate 63-year-old lady nonverbal, chronically ill, obese. SKIN: Maculopapular rash throughout the stomach, area of posterior trunk and anterior aspect of both thighs and down to the legs. HEENT: Atraumatic and normocephalic. Anicteric. Pupils are equal, round, and reactive to light and accommodation. NECK: JVP cannot be assessed due to obesity and short neck and presence of a tracheostomy tube. CARDIOVASCULAR: Normal S1, S2. Regular rate and rhythm. No murmurs, gallops, or rubs. LUNGS: Rhonchi bilaterally. ABDOMEN: Obese. Presence of PEG. Erythematous skin of abdominal wall. EXTREMITIES: No evidence of edema, clubbing, or cyanosis. LABORATORY FINDINGS: WBC is 18.2, hemoglobin 13.4, hematocrit 40.9, and platelet count 177 with 9% bandemia. Sodium 131, potassium 3.9, chloride 95, bicarbonate 27, BUN 15, and creatinine 0.9. Glucose 140. Calcium is 9.0. Phosphorus 2.1. Magnesium 2.3. Troponin I 0.0. ProBNP was 360. Chest x-ray revealed mild basilar atelectasis. Presence of a right subclavian line within the junction of SVC and right atrium. ASSESSMENT AND PLAN: The patient is a very unfortunate 63-year-old lady, was seen in Cardiology consultation. 1. Septic shock. The patient was started initially on Levophed drip, however, due to bradycardia, IV pressor was switched to dopamine currently on 6 mcg. We will like to keep the mean arterial pressure above 65 mmHg. I have instructed the nurse to titrate up to achieve that level. Currently in sinus rhythm with heart rate of 65 beats per minute. We will continue monitoring hemodynamics while the patient is in intensive care unit. The patient came with severe leukocytosis, for which she is on multiple intravenous antibiotics. 2. History of cerebrovascular accident. The patient would qualify for aspirin and statin for cardiovascular protection. 3. Slight elevation of beta-natriuretic peptide, in particular following intravenous fluid resuscitation for hypotension. We will check the chest x-ray. We may obtain 2-D echocardiogram. Of note, there has been no echocardiography data from 2013 in this facility. 4. Rash/abdominal wall cellulitis, Infectious Disease consultation. 5. History of diabetes mellitus. We would suggest a combination of aspirin and statin, although may not change the outcome of this patient with chronic illness. 6. Ventilatory-drive respiratory failure, status post tracheostomy tube placement. 7. Dysphagia, status post PEG placement. 8. History of seizure disorder. 9. History of chronic obstructive pulmonary disease. 10. History of hypothyroidism. 11. History of anemia. Total amount of time spent in reviewing of the records of this patient from 2013, discussing the plan of care with the nursing staff and primary care physician, was over 50 minutes. I would like to thank Dr. Mike for the courtesy of this consultation. Vaughn Sahu M.D. DR: NATI JOB#: [id number] CC:
[2018-12-17] MEDS: Norepinephrine 4mg in D5W 250ml IV SCH (19:07)
[2018-12-17] MEDS: Dyna-Hex 2% Top Sol 2oz TOPIC SCH (20:23)
[2018-12-17] MEDS: Atorvastatin 20mg tab ORAL SCH (20:24)
--- NOTE | 2018-12-17 20:50 | Cardiology Report ---
APPROVED REPORT EXAM: Two-dimensional and M-mode echocardiogram with Doppler and color Doppler. INDICATION Encephalopathy M-Mode DIMENSIONS IVSd0.9 (0.7-1.1cm)Left Atrium (MM)2.9 (1.6-4.0cm) LVDd4.6 (3.5-5.6cm)Aortic Root3.1 (2.0-3.7cm) PWd0.7 (0.7-1.1cm)Aortic Cusp Exc.1.8 (1.5-2.0cm) IVSs1.1 cm LVDs3.1 (2.5-4.0cm) PWs0.8 cm Technically difficult study due to pt's ventilator. Normal left ventricular chamber size, systolic function and wall motion to extent visualized. Left ventricular ejection fraction estimated to be 65-70%. No evidence of left ventricular hypertrophy . Anterior Echo-free space, may be due to pericardial fat or effusion. All other cardiac chamber sizes are within normal limits. Aortic valve calcification with normal cusp excursion . Mildly thickened mitral valve leaflets with normal excursion. Mild mitral annulus and aortic root calcification. Pulmonic valve not well visualized. IVC at 2.0cm without physiologic collapse suggestive of increased RA pressure. A color flow and spectral Doppler study was performed and revealed: No aortic insufficiency . Mitral inflow indicates normal left ventricular diastolic function. Mild mitral regurgitation. Mild tricuspid regurgitation. Tricuspid systolic velocities suggests peak right ventricular systolic pressure of 18 mmHg.
--- NOTE | 2018-12-17 23:54 | Cardiology Progress Note ---
Assessment/Plan Assessment/Plan 1. Septic shock, on dopamine gtt, echo shows normal LVEF. Consider aspirin and statin for cardiovascular protection. 2. Rash/abdominal wall cellulitis, continue IV ABx per infectious Disease specialist. 3. History of diabetes mellitus. Consider aspirin and statin, although may not change the outcome of this patient with chronic illness. 4. Ventilatory-drive respiratory failure, status post tracheostomy tube placement. 5. Dysphagia, status post PEG placement with malfunction. Subjective Subjective Sinus rhythm at the rate of 65. Objective Last 24 Hour Vital Signs Date Time Temp Pulse Resp B/P (MAP) Pulse Ox O2 Delivery O2 Flow Rate FiO2 12/17/18 23:18 65 24 98/52 (67) 100 12/17/18 23:02 58 25 88/50 (63) 97 12/17/18 22:30 63 23 100/58 (72) 98 12/17/18 22:00 73 23 119/71 (87) 99 12/17/18 21:00 82 22 125/100 (108) 99 12/17/18 20:30 80 26 105/62 (76) 99 12/17/18 20:00 12.0 40 12/17/18 20:00 65 12/17/18 20:00 98.7 68 24 102/65 (77) 99 12/17/18 20:00 T-piece 12.0 12/17/18 19:40 T-piece 12.0 40 12/17/18 19:39 100 T-piece 12.0 40 12/17/18 19:39 66 25 T-piece 12.0 40 12/17/18 19:07 122/68 12/17/18 19:00 64 18 122/68 (86) 100 12/17/18 18:00 75 23 92/57 (69) 100 12/17/18 17:00 86 30 101/57 (72) 100 12/17/18 17:00 116/68 12/17/18 16:30 98.9 72 22 86/70 (75) 98 12/17/18 16:00 78 12/17/18 16:00 12.0 40 12/17/18 16:00 98.9 72 22 97/44 (61) 98 12/17/18 16:00 T-piece 12.0 12/17/18 15:30 71 22 109/50 (69) 98 12/17/18 15:00 71 22 90/48 (62) 98 12/17/18 14:30 72 22 87/53 (64) 98 12/17/18 14:00 72 22 92/42 (59) 98 12/17/18 13:30 68 22 95/55 (68) 98 12/17/18 13:00 68 22 85/52 (63) 98 12/17/18 12:30 100 T-piece 12.0 40 12/17/18 12:30 T-piece 12.0 40 12/17/18 12:30 85 24 96/50 (65) 98 12/17/18 12:08 80 12/17/18 12:00 98.6 71 21 90/54 (66) 100 12/17/18 12:00 12.0 40 12/17/18 12:00 T-piece 12.0 12/17/18 11:30 85 24 96/52 (67) 98 12/17/18 11:00 75 24 96/50 (65) 98 12/17/18 10:30 77 27 93/50 (64) 100 12/17/18 10:00 75 27 97/51 (66) 100 12/17/18 09:45 75 27 94/49 (64) 100 12/17/18 09:30 75 27 98/48 (65) 100 12/17/18 09:15 84 27 107/53 (71) 100 12/17/18 09:00 84/46 12/17/18 09:00 89 27 84/46 (59) 100 12/17/18 08:00 T-piece 12.0 12/17/18 08:00 80 12/17/18 08:00 12.0 40 12/17/18 08:00 97.9 83 25 120/80 (93) 98 12/17/18 07:20 T-piece 12.0 40 12/17/18 07:20 71 22 T-piece 12.0 40 12/17/18 07:20 100 T-piece 12.0 40 12/17/18 07:00 71 27 119/82 (94) 100 12/17/18 06:00 73 21 97/57 (70) 100 12/17/18 05:00 77 31 111/66 (81) 98 12/17/18 04:00 99.0 74 19 100/56 (71) 95 12/17/18 04:00 T-piece 12.0 12/17/18 04:00 74 12/17/18 04:00 12.0 40 12/17/18 03:00 73 27 98/59 (72) 96 12/17/18 02:30 74 30 112/66 (81) 95 12/17/18 02:00 74 30 112/66 (81) 95 12/17/18 01:30 69 25 88/42 (57) 98 12/17/18 01:15 T-piece 12.0 40 12/17/18 01:15 100 T-piece 12.0 40 12/17/18 01:00 70 25 99/61 (74) 99 12/17/18 00:30 74 24 98/52 (67) 100 12/17/18 00:00 87 12/17/18 00:00 98.8 76 17 110/50 (70) 94 12/17/18 00:00 12.0 40 12/17/18 00:00 T-piece 12.0 Intake and Output 12/16/18 12/17/18 19:00 07:00 Intake Total 1989.77 ml 2155.193 ml Output Total 650 ml 1250 ml Balance 1339.77 ml 905.193 ml Intake Free Water 60 ml 120 ml IV Total 1569.77 ml 1675.193 ml Tube Feeding 360 ml 360 ml Output Urine Total 650 ml 1250 ml 2D Echo: LVEF 70%, Mild MR, RVSP 18mmHg, RAP ~10-15 mmHg Laboratory Tests Test 12/17/18 00:00 12/17/18 03:00 12/17/18 04:00 Vancomycin Level Trough 7.3 ug/mL (5.0-12.0) Random Amikacin Level 3.8 ug/mL White Blood Count 11.7 K/UL (4.8-10.8) H Red Blood Count 3.70 M/UL (4.20-5.40) L Hemoglobin 11.2 G/DL (12.0-16.0) L Hematocrit 34.2 % (37.0-47.0) L Mean Corpuscular Volume 92 FL (80-99) Mean Corpuscular Hemoglobin 30.2 PG (27.0-31.0) Mean Corpuscular Hemoglobin Concent 32.8 G/DL (32.0-36.0) Red Cell Distribution Width 13.4 % (11.6-14.8) Platelet Count 190 K/UL (150-450) Mean Platelet Volume 7.2 FL (6.5-10.1) Neutrophils (%) (Auto) 79.0 % (45.0-75.0) H Lymphocytes (%) (Auto) 11.5 % (20.0-45.0) L Monocytes (%) (Auto) 6.8 % (1.0-10.0) Eosinophils (%) (Auto) 1.7 % (0.0-3.0) Basophils (%) (Auto) 1.0 % (0.0-2.0) Sodium Level 140 MMOL/L (136-145) Potassium Level 2.8 MMOL/L (3.5-5.1) L Chloride Level 102 MMOL/L (98-107) Carbon Dioxide Level 31 MMOL/L (21-32) Anion Gap 5 mmol/L (5-15) Blood Urea Nitrogen 7 mg/dL (7-18) Creatinine 0.5 MG/DL (0.55-1.30) L Estimat Glomerular Filtration Rate > 60 mL/min (>60) Glucose Level 129 MG/DL (74-106) H Calcium Level 8.1 MG/DL (8.5-10.1) L Total Bilirubin 0.2 MG/DL (0.2-1.0) Aspartate Amino Transf (AST/SGOT) 22 U/L (15-37) Alanine Aminotransferase (ALT/SGPT) 30 U/L (12-78) Alkaline Phosphatase 93 U/L (46-116) Pro-B-Type Natriuretic Peptide 1783 pg/mL (0-125) H Total Protein 6.6 G/DL (6.4-8.2) Albumin 1.8 G/DL (3.4-5.0) L Globulin 4.8 g/dL Albumin/Globulin Ratio 0.4 (1.0-2.7) L Microbiology Date/Time Source Procedure Growth Status 12/15/18 12:55 Blood Blood Culture - Preliminary Resulted 12/15/18 12:40 Blood Blood Culture - Preliminary NO GROWTH AFTER 24 HOURS Resulted 12/17/18 03:00 Nasopharynx - Final Complete 12/17/18 03:00 Nasopharynx - Final Complete 12/15/18 13:25 Nasal Nares MRSA Culture - Final NO METHICILLIN RESISTANT STAPH AUREUS... Complete 12/16/18 20:30 Indwelling Cath Urine Culture - Preliminary NO GROWTH AFTER 24 HOURS Resulted 12/15/18 13:25 Rectum VRE Culture - Final Enterococcus Faecalis - Vre Resulted 12/15/18 13:25 Rectum Pending Resulted Objective SKIN: Maculopapular rash throughout the stomach, area of posterior trunk and anterior aspect of both thighs and down to the legs. HEENT: Atraumatic and normocephalic. Anicteric. Pupils are equal, round, and reactive to light and accommodation. NECK: JVP cannot be assessed due to obesity and short neck and presence of a tracheostomy tube. CARDIOVASCULAR: Normal S1, S2. Regular rate and rhythm. No murmurs, gallops, or rubs. LUNGS: Rhonchi bilaterally. ABDOMEN: Obese. Presence of PEG. Erythematous skin of abdominal wall. EXTREMITIES: No evidence of edema, clubbing, or cyanosis. Vaughn Sahu MD December 17, 2018 23:54
[2018-12-18] VITALS (25 sets, daily range): BP systolic 83–151; BP diastolic 41–80
[2018-12-18] MEDS: Cefepime HCl 2 GM in D5W 110 ML IV SCH (01:02)
[2018-12-18] MEDS: Vancomycin 1gm in Dextrose 275ml IVPB SCH ×3 (02:18→17:46)
[2018-12-18 04:37] LABS: BASOPHILS % (AUTO) 0.7 % (0.0-2.0); EOSINOPHILS % (AUTO) 4.5 % (0.0-3.0); HEMATOCRIT 33.5 % (37.0-47.0); HEMOGLOBIN 11.1 G/DL (12.0-16.0); LYMPHOCYTES % (AUTO) 17.3 % (20.0-45.0); MEAN CORPUSCULAR VOLUME 92 FL (80-99); MONOCYTES % (AUTO) 6.9 % (1.0-10.0); NEUTROPHILS % (AUTO) 70.6 % (45.0-75.0); PLATELET COUNT 222 K/UL (150-450); RED BLOOD COUNT 3.63 M/UL (4.20-5.40); RED CELL DISTRIBUTION WIDTH 13.2 % (11.6-14.8); WHITE BLOOD COUNT 8.5 K/UL (4.8-10.8)
[2018-12-18 05:13] LABS: ANION GAP 7 mmol/L (5-15); BLOOD UREA NITROGEN 9 mg/dL (7-18); CALCIUM 8.4 MG/DL (8.5-10.1); CARBON DIOXIDE 30 MMOL/L (21-32); CHLORIDE 105 MMOL/L (98-107); CREATININE 0.6 MG/DL (0.55-1.30); PHOSPHORUS 2.5 MG/DL (2.5-4.9); POTASSIUM 2.9 MMOL/L (3.5-5.1); SODIUM 142 MMOL/L (136-145)
[2018-12-18] MEDS: Aspirin EC 81mg tab ORAL SCH (08:06)
[2018-12-18] MEDS: Heparin 5000 units/ml inj SUBQ SCH ×2 (08:11→21:01)
--- NOTE | 2018-12-18 08:27 | General Progress Note ---
Assessment/Plan Problem List: (1) UTI (lower urinary tract infection) ICD Codes: N39.0 - UTI (lower urinary tract infection) SNOMED: 8323134 (2) Septic shock ICD Codes: A41.9 - Septic shock; R65.21 - Severe sepsis with septic shock SNOMED: 77379185 (3) Hypotension ICD Codes: I95.9 - Hypotension SNOMED: 72813757 (4) COPD (chronic obstructive pulmonary disease) ICD Codes: J44.9 - Chronic obstructive pulmonary disease, unspecified SNOMED: 43492875 (5) Tracheostomy dependent ICD Codes: Z93.0 - Tracheostomy dependent SNOMED: 634240808 (6) Chronic respiratory failure ICD Codes: J96.10 - Chronic respiratory failure SNOMED: 59805981 (7) Abdominal wall cellulitis ICD Codes: L03.311 - Cellulitis of abdominal wall SNOMED: 90523594 (8) Seizure disorder ICD Codes: G40.909 - Seizure disorder SNOMED: 678702335 Status: unchanged Assessment/Plan: vent abx wound care bp bs seizure control cbc bmp in am ltach eval Subjective Constitutional: Reports: weakness Allergies: Coded Allergies: No Known Allergies (Unverified , 04/14/14) All Systems: reviewed and negative except above Subjective trach vent altered in icu Objective Last 24 Hour Vital Signs Date Time Temp Pulse Resp B/P (MAP) Pulse Ox O2 Delivery O2 Flow Rate FiO2 12/18/18 07:00 69 19 116/62 (80) 92 12/18/18 06:56 T-piece 12.0 40 12/18/18 06:56 74 20 T-piece 12.0 40 12/18/18 06:56 100 T-piece 12.0 40 12/18/18 06:00 69 23 151/80 (103) 93 12/18/18 05:00 58 22 106/64 (78) 96 12/18/18 04:00 74 29 113/64 (80) 97 12/18/18 04:00 12.0 40 12/18/18 04:00 T-piece 12.0 12/18/18 04:00 68 12/18/18 03:00 65 20 111/61 (78) 99 12/18/18 02:00 74 27 109/70 (83) 99 12/18/18 01:08 100 T-piece 12.0 40 12/18/18 01:08 T-piece 12.0 40 12/18/18 01:02 53 20 90/44 (59) 100 12/18/18 01:00 55 21 83/41 (55) 100 12/18/18 00:00 57 12/18/18 00:00 T-piece 12.0 12/18/18 00:00 98.5 91 20 113/62 (79) 96 12/17/18 23:18 65 24 98/52 (67) 100 12/17/18 23:02 58 25 88/50 (63) 97 12/17/18 22:30 63 23 100/58 (72) 98 12/17/18 22:00 73 23 119/71 (87) 99 12/17/18 21:00 82 22 125/100 (108) 99 12/17/18 20:30 80 26 105/62 (76) 99 12/17/18 20:00 12.0 40 12/17/18 20:00 65 12/17/18 20:00 98.7 68 24 102/65 (77) 99 12/17/18 20:00 T-piece 12.0 12/17/18 19:40 T-piece 12.0 40 12/17/18 19:39 100 T-piece 12.0 40 12/17/18 19:39 66 25 T-piece 12.0 40 12/17/18 19:07 122/68 12/17/18 19:00 64 18 122/68 (86) 100 12/17/18 18:00 75 23 92/57 (69) 100 12/17/18 17:00 86 30 101/57 (72) 100 12/17/18 17:00 116/68 12/17/18 16:30 98.9 72 22 86/70 (75) 98 12/17/18 16:00 78 12/17/18 16:00 12.0 40 12/17/18 16:00 98.9 72 22 97/44 (61) 98 12/17/18 16:00 T-piece 12.0 12/17/18 15:30 71 22 109/50 (69) 98 12/17/18 15:00 71 22 90/48 (62) 98 12/17/18 14:30 72 22 87/53 (64) 98 12/17/18 14:00 72 22 92/42 (59) 98 12/17/18 13:30 68 22 95/55 (68) 98 12/17/18 13:00 68 22 85/52 (63) 98 12/17/18 12:30 100 T-piece 12.0 40 12/17/18 12:30 T-piece 12.0 40 12/17/18 12:30 85 24 96/50 (65) 98 12/17/18 12:08 80 12/17/18 12:00 98.6 71 21 90/54 (66) 100 12/17/18 12:00 12.0 40 12/17/18 12:00 T-piece 12.0 12/17/18 11:30 85 24 96/52 (67) 98 12/17/18 11:00 75 24 96/50 (65) 98 12/17/18 10:30 77 27 93/50 (64) 100 12/17/18 10:00 75 27 97/51 (66) 100 12/17/18 09:45 75 27 94/49 (64) 100 12/17/18 09:30 75 27 98/48 (65) 100 12/17/18 09:15 84 27 107/53 (71) 100 12/17/18 09:00 84/46 12/17/18 09:00 89 27 84/46 (59) 100 Intake and Output 12/17/18 12/18/18 18:59 06:59 Intake Total 1790.195 ml 2175.000 ml Output Total 1910 ml 1720 ml Balance -119.805 ml 455.000 ml Intake Free Water 240 ml 200 ml IV Total 1190.195 ml 1585.000 ml Tube Feeding 360 ml 330 ml Other 60 ml Output Urine Total 1910 ml 1720 ml # Bowel Movements 1 2 Laboratory Tests 12/18/18 01:00: Vancomycin Level Trough 16.4H 12/18/18 04:00: White Blood Count 8.5, Red Blood Count 3.63L, Hemoglobin 11.1L, Hematocrit 33.5L , Mean Corpuscular Volume 92, Mean Corpuscular Hemoglobin 30.4, Mean Corpuscular Hemoglobin Concent 33.0, Red Cell Distribution Width 13.2, Platelet Count 222, Mean Platelet Volume 7.8, Neutrophils (%) (Auto) 70.6, Lymphocytes (% ) (Auto) 17.3L, Monocytes (%) (Auto) 6.9, Eosinophils (%) (Auto) 4.5H, Basophils (%) (Auto) 0.7, Sodium Level 142, Potassium Level 2.9L, Chloride Level 105, Carbon Dioxide Level 30, Anion Gap 7, Blood Urea Nitrogen 9, Creatinine 0.6, Estimat Glomerular Filtration Rate > 60, Glucose Level 132H, Calcium Level 8.4L, Phosphorus Level 2.5, Magnesium Level 2.0 Height (Feet): 5 Height (Inches): 5.00 Weight (Pounds): 187 General Appearance: lethargic EENT: normal ENT inspection Neck: normal alignment Cardiovascular: normal peripheral pulses, normal rate, regular rhythm Respiratory/Chest: chest wall non-tender, lungs clear, normal breath sounds Abdomen: normal bowel sounds, non tender, soft Extremities: normal inspection Edema: no edema noted Arm (L), no edema noted Arm (R), no edema noted Leg (L), no edema noted Leg (R), no edema noted Pedal (L), no edema noted Pedal (R), no edema noted Generalized Neurologic: motor weakness Skin: normal pigmentation, warm/dry Seb Mike DO December 18, 2018 08:27
[2018-12-18] MEDS ORDERED: D5W 275ml ONE ×2 (10:00)
[2018-12-18] MEDS ORDERED: D5W 550ml IV ONE (10:00)
[2018-12-18] MEDS ORDERED: NS 275ml ONE ×2 (10:00)
--- NOTE | 2018-12-18 11:05 | Pulmonolgy Critical Care Note ---
Critical Care - Asmt/Plan Problems: (1) Septic shock (2) Acute on chronic respiratory failure (3) Chronic vegetative state (4) COPD (chronic obstructive pulmonary disease) (5) Seizure disorder (6) Chronic respiratory failure (7) Decubital ulcer Respiratory: monitor respiratory rate, adjust FIO2, CXR Cardiac: d/c administrative nursing supervisor Renal: F/U I&O Infectious Disease: check cultures, continue antibiotics Gastrointestinal: continue feedings/current rate Endocrine: monitor blood sugar Hematologic: monitor H/H, transfuse if hgb<8.5 Neurologic: PRN Morphine, keep patient comfortable Affect: PRN ativan Prophylaxis: Protonix Notes Reviewed: auxiliary powerplant operator, renal Discussed with: nurses, consultants, foster care case managermanufacturing production manager - Objective Last 24 Hour Vital Signs Date Time Temp Pulse Resp B/P (MAP) Pulse Ox O2 Delivery O2 Flow Rate FiO2 12/18/18 10:00 68 21 123/63 (83) 99 12/18/18 09:00 68 22 122/66 (84) 96 12/18/18 08:00 98.9 68 17 111/62 (78) 94 12/18/18 08:00 T-piece 12.0 12/18/18 08:00 12.0 40 12/18/18 08:00 70 12/18/18 07:00 69 19 116/62 (80) 92 12/18/18 06:56 T-piece 12.0 40 12/18/18 06:56 74 20 T-piece 12.0 40 12/18/18 06:56 100 T-piece 12.0 40 12/18/18 06:00 69 23 151/80 (103) 93 12/18/18 05:00 58 22 106/64 (78) 96 12/18/18 04:00 74 29 113/64 (80) 97 12/18/18 04:00 12.0 40 12/18/18 04:00 T-piece 12.0 12/18/18 04:00 68 12/18/18 03:00 65 20 111/61 (78) 99 12/18/18 02:00 74 27 109/70 (83) 99 12/18/18 01:08 100 T-piece 12.0 40 12/18/18 01:08 T-piece 12.0 40 12/18/18 01:02 53 20 90/44 (59) 100 12/18/18 01:00 55 21 83/41 (55) 100 12/18/18 00:00 57 12/18/18 00:00 T-piece 12.0 12/18/18 00:00 98.5 91 20 113/62 (79) 96 12/17/18 23:18 65 24 98/52 (67) 100 12/17/18 23:02 58 25 88/50 (63) 97 12/17/18 22:30 63 23 100/58 (72) 98 12/17/18 22:00 73 23 119/71 (87) 99 12/17/18 21:00 82 22 125/100 (108) 99 12/17/18 20:30 80 26 105/62 (76) 99 12/17/18 20:00 12.0 40 12/17/18 20:00 65 12/17/18 20:00 98.7 68 24 102/65 (77) 99 12/17/18 20:00 T-piece 12.0 12/17/18 19:40 T-piece 12.0 40 12/17/18 19:39 100 T-piece 12.0 40 12/17/18 19:39 66 25 T-piece 12.0 40 12/17/18 19:07 122/68 12/17/18 19:00 64 18 122/68 (86) 100 12/17/18 18:00 75 23 92/57 (69) 100 12/17/18 17:00 86 30 101/57 (72) 100 12/17/18 17:00 116/68 12/17/18 16:30 98.9 72 22 86/70 (75) 98 12/17/18 16:00 78 12/17/18 16:00 12.0 40 12/17/18 16:00 98.9 72 22 97/44 (61) 98 12/17/18 16:00 T-piece 12.0 12/17/18 15:30 71 22 109/50 (69) 98 12/17/18 15:00 71 22 90/48 (62) 98 12/17/18 14:30 72 22 87/53 (64) 98 12/17/18 14:00 72 22 92/42 (59) 98 12/17/18 13:30 68 22 95/55 (68) 98 12/17/18 13:00 68 22 85/52 (63) 98 12/17/18 12:30 100 T-piece 12.0 40 12/17/18 12:30 T-piece 12.0 40 12/17/18 12:30 85 24 96/50 (65) 98 12/17/18 12:08 80 12/17/18 12:00 98.6 71 21 90/54 (66) 100 12/17/18 12:00 12.0 40 12/17/18 12:00 T-piece 12.0 12/17/18 11:30 85 24 96/52 (67) 98 Status: obtunded Condition: critical Neck: full ROM Lungs: chest wall tender Heart: HR/BP unstable Extremities: edema Micro: Microbiology Date/Time Source Procedure Growth Status 12/15/18 12:55 Blood Blood Culture - Preliminary Staphylococcus Sp Coag Neg Resulted 12/15/18 12:40 Blood Blood Culture - Preliminary NO GROWTH AFTER 48 HOURS Resulted 12/17/18 03:00 Nasopharynx - Final Complete 12/17/18 03:00 Nasopharynx - Final Complete 12/16/18 21:00 Sputum Induced Gram Stain - Final Resulted 12/16/18 21:00 Sputum Induced Sputum Culture Pending Resulted 12/15/18 13:25 Nasal Nares MRSA Culture - Final NO METHICILLIN RESISTANT STAPH AUREUS... Complete 12/16/18 20:30 Indwelling Cath Urine Culture - Final NO GROWTH AFTER 48 HOURS Complete 12/15/18 13:25 Rectum VRE Culture - Final Enterococcus Faecalis - Vre Complete 12/15/18 13:25 Rectum - Final NO CARBAPENEM-RESISTANT ENTEROBACTERI... Complete Critical Care - Subjective ROS Limited/Unobtainable: Yes Condition: critical FI02: 40 Sputum Amount: Scant Tube Feeding Amount: 30 I&O: Intake and Output 12/17/18 12/18/18 18:59 06:59 Intake Total 1790.195 ml 2175.000 ml Output Total 1910 ml 1720 ml Balance -119.805 ml 455.000 ml Intake Free Water 240 ml 200 ml IV Total 1190.195 ml 1585.000 ml Tube Feeding 360 ml 330 ml Other 60 ml Output Urine Total 1910 ml 1720 ml # Bowel Movements 1 2 Labs: Laboratory Tests Test 12/18/18 01:00 12/18/18 04:00 Vancomycin Level Trough 16.4 ug/mL (5.0-12.0) H White Blood Count 8.5 K/UL (4.8-10.8) Red Blood Count 3.63 M/UL (4.20-5.40) L Hemoglobin 11.1 G/DL (12.0-16.0) L Hematocrit 33.5 % (37.0-47.0) L Mean Corpuscular Volume 92 FL (80-99) Mean Corpuscular Hemoglobin 30.4 PG (27.0-31.0) Mean Corpuscular Hemoglobin Concent 33.0 G/DL (32.0-36.0) Red Cell Distribution Width 13.2 % (11.6-14.8) Platelet Count 222 K/UL (150-450) Mean Platelet Volume 7.8 FL (6.5-10.1) Neutrophils (%) (Auto) 70.6 % (45.0-75.0) Lymphocytes (%) (Auto) 17.3 % (20.0-45.0) L Monocytes (%) (Auto) 6.9 % (1.0-10.0) Eosinophils (%) (Auto) 4.5 % (0.0-3.0) H Basophils (%) (Auto) 0.7 % (0.0-2.0) Sodium Level 142 MMOL/L (136-145) Potassium Level 2.9 MMOL/L (3.5-5.1) L Chloride Level 105 MMOL/L (98-107) Carbon Dioxide Level 30 MMOL/L (21-32) Anion Gap 7 mmol/L (5-15) Blood Urea Nitrogen 9 mg/dL (7-18) Creatinine 0.6 MG/DL (0.55-1.30) Estimat Glomerular Filtration Rate > 60 mL/min (>60) Glucose Level 132 MG/DL (74-106) H Calcium Level 8.4 MG/DL (8.5-10.1) L Phosphorus Level 2.5 MG/DL (2.5-4.9) Magnesium Level 2.0 MG/DL (1.8-2.4) Leigh Ch MD December 18, 2018 11:05
--- NOTE | 2018-12-18 11:22 | Surgery Progress Note ---
Surgery Progress Note Subjective Additional Comments no acute events leukocytosis resolved labs improved electrolytes need replacing. ECHO noted. Objective Last 24 Hour Vital Signs Date Time Temp Pulse Resp B/P (MAP) Pulse Ox O2 Delivery O2 Flow Rate FiO2 12/18/18 10:00 68 21 123/63 (83) 99 12/18/18 09:00 68 22 122/66 (84) 96 12/18/18 08:00 98.9 68 17 111/62 (78) 94 12/18/18 08:00 T-piece 12.0 12/18/18 08:00 12.0 40 12/18/18 08:00 70 12/18/18 07:00 69 19 116/62 (80) 92 12/18/18 06:56 T-piece 12.0 40 12/18/18 06:56 74 20 T-piece 12.0 40 12/18/18 06:56 100 T-piece 12.0 40 12/18/18 06:00 69 23 151/80 (103) 93 12/18/18 05:00 58 22 106/64 (78) 96 12/18/18 04:00 74 29 113/64 (80) 97 12/18/18 04:00 12.0 40 12/18/18 04:00 T-piece 12.0 12/18/18 04:00 68 12/18/18 03:00 65 20 111/61 (78) 99 12/18/18 02:00 74 27 109/70 (83) 99 12/18/18 01:08 100 T-piece 12.0 40 12/18/18 01:08 T-piece 12.0 40 12/18/18 01:02 53 20 90/44 (59) 100 12/18/18 01:00 55 21 83/41 (55) 100 12/18/18 00:00 57 12/18/18 00:00 T-piece 12.0 12/18/18 00:00 98.5 91 20 113/62 (79) 96 12/17/18 23:18 65 24 98/52 (67) 100 12/17/18 23:02 58 25 88/50 (63) 97 12/17/18 22:30 63 23 100/58 (72) 98 12/17/18 22:00 73 23 119/71 (87) 99 12/17/18 21:00 82 22 125/100 (108) 99 12/17/18 20:30 80 26 105/62 (76) 99 12/17/18 20:00 12.0 40 12/17/18 20:00 65 12/17/18 20:00 98.7 68 24 102/65 (77) 99 12/17/18 20:00 T-piece 12.0 12/17/18 19:40 T-piece 12.0 40 12/17/18 19:39 100 T-piece 12.0 40 12/17/18 19:39 66 25 T-piece 12.0 40 12/17/18 19:07 122/68 12/17/18 19:00 64 18 122/68 (86) 100 12/17/18 18:00 75 23 92/57 (69) 100 12/17/18 17:00 86 30 101/57 (72) 100 12/17/18 17:00 116/68 12/17/18 16:30 98.9 72 22 86/70 (75) 98 12/17/18 16:00 78 12/17/18 16:00 12.0 40 12/17/18 16:00 98.9 72 22 97/44 (61) 98 12/17/18 16:00 T-piece 12.0 12/17/18 15:30 71 22 109/50 (69) 98 12/17/18 15:00 71 22 90/48 (62) 98 12/17/18 14:30 72 22 87/53 (64) 98 12/17/18 14:00 72 22 92/42 (59) 98 12/17/18 13:30 68 22 95/55 (68) 98 12/17/18 13:00 68 22 85/52 (63) 98 12/17/18 12:30 100 T-piece 12.0 40 12/17/18 12:30 T-piece 12.0 40 12/17/18 12:30 85 24 96/50 (65) 98 12/17/18 12:08 80 12/17/18 12:00 98.6 71 21 90/54 (66) 100 12/17/18 12:00 12.0 40 12/17/18 12:00 T-piece 12.0 12/17/18 11:30 85 24 96/52 (67) 98 I&O Intake and Output 12/17/18 12/18/18 18:59 06:59 Intake Total 1790.195 ml 2175.000 ml Output Total 1910 ml 1720 ml Balance -119.805 ml 455.000 ml Intake Free Water 240 ml 200 ml IV Total 1190.195 ml 1585.000 ml Tube Feeding 360 ml 330 ml Other 60 ml Output Urine Total 1910 ml 1720 ml # Bowel Movements 1 2 Dressing: dry Wound: other Drains: other Cardiovascular: RSR Respiratory: decreased breath sounds Abdomen: soft, present bowel sounds, non-distended Laboratory Tests Test 12/18/18 01:00 12/18/18 04:00 Vancomycin Level Trough 16.4 ug/mL (5.0-12.0) H White Blood Count 8.5 K/UL (4.8-10.8) Red Blood Count 3.63 M/UL (4.20-5.40) L Hemoglobin 11.1 G/DL (12.0-16.0) L Hematocrit 33.5 % (37.0-47.0) L Mean Corpuscular Volume 92 FL (80-99) Mean Corpuscular Hemoglobin 30.4 PG (27.0-31.0) Mean Corpuscular Hemoglobin Concent 33.0 G/DL (32.0-36.0) Red Cell Distribution Width 13.2 % (11.6-14.8) Platelet Count 222 K/UL (150-450) Mean Platelet Volume 7.8 FL (6.5-10.1) Neutrophils (%) (Auto) 70.6 % (45.0-75.0) Lymphocytes (%) (Auto) 17.3 % (20.0-45.0) L Monocytes (%) (Auto) 6.9 % (1.0-10.0) Eosinophils (%) (Auto) 4.5 % (0.0-3.0) H Basophils (%) (Auto) 0.7 % (0.0-2.0) Sodium Level 142 MMOL/L (136-145) Potassium Level 2.9 MMOL/L (3.5-5.1) L Chloride Level 105 MMOL/L (98-107) Carbon Dioxide Level 30 MMOL/L (21-32) Anion Gap 7 mmol/L (5-15) Blood Urea Nitrogen 9 mg/dL (7-18) Creatinine 0.6 MG/DL (0.55-1.30) Estimat Glomerular Filtration Rate > 60 mL/min (>60) Glucose Level 132 MG/DL (74-106) H Calcium Level 8.4 MG/DL (8.5-10.1) L Phosphorus Level 2.5 MG/DL (2.5-4.9) Magnesium Level 2.0 MG/DL (1.8-2.4) Plan Problems: (1) Lactic acid acidosis (2) UTI (lower urinary tract infection) (3) Septic shock Assessment & Plan: diffuse rash noted on arms, trunk legs abdominal wall superficial cellulitis leukocytosis - resolved fevers - resolved micro noted No acute surgical intervention planned IV abx trend labs will follow with exam and recs thank you (4) Pneumonia (5) Hypothyroidism (6) Hypotension (7) Acute on chronic respiratory failure (8) Hypernatremia (9) Hypokalemia (10) COPD (chronic obstructive pulmonary disease) (11) Seizure disorder (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 Full thickness pressure injury sacrococcygeal area. Base of wound pale with callused borders.Non-blanchable erythema periwound with additional partial thickness shearing..(L)1cm x (W)0.6cm x (D)0.2cm. Unstageable pressure injury R buttocks.Base of wound has 80% mixed necrosis / slough,20% viable. Clockwise at 6o'clock an area of induration noted.Small amt seropurulent exudate noted. No odor noted. (L)9 cm x (W)7cm. Periwound indurated with non-blanchable erythema with additional partial thickness wounds. Full thickness pressure injury noted to L buttocks.Base of wound is viable with trace amt of biofilm,(+) maceration along borders. (L)1.4cm x (W)1cm x (D) 0.2cm. Non-blanchable erythema with shearing periwound. Shearing with multiple small partial thickness wounds ,and surrounding darker skin tone without induration noted to R and L ischial areas. Tx.Plan: Cleanse wounds Sacrococcygeal, R and L buttocks with Saline. Apply Therhaoney to each wound.Apply Triad Paste periwound. Cover with Optifoam drsgs. Apply Triad Paste to R and L ischium with each incontinence care. Apply Cavilon Skin Barrier to R and L heels. Ciover each heel with Optifoam drsg. Change every 7 days and prn. APM/JANINE Mattress overlay Reposition at least every 2hours or as tolerated. Off-load heels with pillow. (14) Abdominal wall cellulitis (15) Pressure ulcer (16) Chronic respiratory failure (17) Severe sepsis Additional Comments Technically difficult study due to pt's ventilator. Normal left ventricular chamber size, systolic function and wall motion to extent visualized. Left ventricular ejection fraction estimated to be 65-70%. No evidence of left ventricular hypertrophy . Anterior Echo-free space, may be due to pericardial fat or effusion. All other cardiac chamber sizes are within normal limits. Aortic valve calcification with normal cusp excursion . Mildly thickened mitral valve leaflets with normal excursion. Mild mitral annulus and aortic root calcification. Pulmonic valve not well visualized. IVC at 2.0cm without physiologic collapse suggestive of increased RA pressure. A color flow and spectral Doppler study was performed and revealed: No aortic insufficiency . Mitral inflow indicates normal left ventricular diastolic function. Mild mitral regurgitation. Mild tricuspid regurgitation. Tricuspid systolic velocities suggests peak right ventricular systolic pressure of 18 mmHg. Lazaro Hodges December 18, 2018 11:22
--- NOTE | 2018-12-18 11:48 | General Progress Note ---
Assessment/Plan Problem List: (1) Chronic respiratory failure ICD Codes: J96.10 - Chronic respiratory failure SNOMED: 71562103 (2) Tracheostomy dependent ICD Codes: Z93.0 - Tracheostomy dependent SNOMED: 778979659 (3) Seizure disorder ICD Codes: G40.909 - Seizure disorder SNOMED: 566154195 (4) COPD (chronic obstructive pulmonary disease) ICD Codes: J44.9 - Chronic obstructive pulmonary disease, unspecified SNOMED: 08000987 (5) Leaking PEG tube ICD Codes: K94.23 - Gastrostomy malfunction SNOMED: 213078082 Status: unchanged Assessment/Plan: GTF GT care abx respiratory care replace k fu labs Subjective ROS Limited/Unobtainable: No Allergies: Coded Allergies: No Known Allergies (Unverified , 04/14/14) Objective Last 24 Hour Vital Signs Date Time Temp Pulse Resp B/P (MAP) Pulse Ox O2 Delivery O2 Flow Rate FiO2 12/18/18 11:00 63 21 115/62 (79) 94 12/18/18 10:00 68 21 123/63 (83) 99 12/18/18 09:00 68 22 122/66 (84) 96 12/18/18 08:00 98.9 68 17 111/62 (78) 94 12/18/18 08:00 T-piece 12.0 12/18/18 08:00 12.0 40 12/18/18 08:00 70 12/18/18 07:00 69 19 116/62 (80) 92 12/18/18 06:56 T-piece 12.0 40 12/18/18 06:56 74 20 T-piece 12.0 40 12/18/18 06:56 100 T-piece 12.0 40 12/18/18 06:00 69 23 151/80 (103) 93 12/18/18 05:00 58 22 106/64 (78) 96 12/18/18 04:00 74 29 113/64 (80) 97 12/18/18 04:00 12.0 40 12/18/18 04:00 T-piece 12.0 12/18/18 04:00 68 12/18/18 03:00 65 20 111/61 (78) 99 12/18/18 02:00 74 27 109/70 (83) 99 12/18/18 01:08 100 T-piece 12.0 40 12/18/18 01:08 T-piece 12.0 40 12/18/18 01:02 53 20 90/44 (59) 100 12/18/18 01:00 55 21 83/41 (55) 100 12/18/18 00:00 57 12/18/18 00:00 T-piece 12.0 12/18/18 00:00 98.5 91 20 113/62 (79) 96 12/17/18 23:18 65 24 98/52 (67) 100 12/17/18 23:02 58 25 88/50 (63) 97 12/17/18 22:30 63 23 100/58 (72) 98 12/17/18 22:00 73 23 119/71 (87) 99 12/17/18 21:00 82 22 125/100 (108) 99 12/17/18 20:30 80 26 105/62 (76) 99 12/17/18 20:00 12.0 40 12/17/18 20:00 65 12/17/18 20:00 98.7 68 24 102/65 (77) 99 12/17/18 20:00 T-piece 12.0 12/17/18 19:40 T-piece 12.0 40 12/17/18 19:39 100 T-piece 12.0 40 12/17/18 19:39 66 25 T-piece 12.0 40 12/17/18 19:07 122/68 12/17/18 19:00 64 18 122/68 (86) 100 12/17/18 18:00 75 23 92/57 (69) 100 12/17/18 17:00 86 30 101/57 (72) 100 12/17/18 17:00 116/68 12/17/18 16:30 98.9 72 22 86/70 (75) 98 12/17/18 16:00 78 12/17/18 16:00 12.0 40 12/17/18 16:00 98.9 72 22 97/44 (61) 98 12/17/18 16:00 T-piece 12.0 12/17/18 15:30 71 22 109/50 (69) 98 12/17/18 15:00 71 22 90/48 (62) 98 12/17/18 14:30 72 22 87/53 (64) 98 5/16/19 14:00 72 22 92/42 (59) 98 12/17/18 13:30 68 22 95/55 (68) 98 12/17/18 13:00 68 22 85/52 (63) 98 12/17/18 12:30 100 T-piece 12.0 40 12/17/18 12:30 T-piece 12.0 40 12/17/18 12:30 85 24 96/50 (65) 98 12/17/18 12:08 80 12/17/18 12:00 98.6 71 21 90/54 (66) 100 12/17/18 12:00 12.0 40 12/17/18 12:00 T-piece 12.0 Intake and Output 12/17/18 12/18/18 18:59 06:59 Intake Total 1790.195 ml 2175.000 ml Output Total 1910 ml 1720 ml Balance -119.805 ml 455.000 ml Intake Free Water 240 ml 200 ml IV Total 1190.195 ml 1585.000 ml Tube Feeding 360 ml 330 ml Other 60 ml Output Urine Total 1910 ml 1720 ml # Bowel Movements 1 2 Laboratory Tests 12/18/18 01:00: Vancomycin Level Trough 16.4H 12/18/18 04:00: White Blood Count 8.5, Red Blood Count 3.63L, Hemoglobin 11.1L, Hematocrit 33.5L , Mean Corpuscular Volume 92, Mean Corpuscular Hemoglobin 30.4, Mean Corpuscular Hemoglobin Concent 33.0, Red Cell Distribution Width 13.2, Platelet Count 222, Mean Platelet Volume 7.8, Neutrophils (%) (Auto) 70.6, Lymphocytes (% ) (Auto) 17.3L, Monocytes (%) (Auto) 6.9, Eosinophils (%) (Auto) 4.5H, Basophils (%) (Auto) 0.7, Sodium Level 142, Potassium Level 2.9L, Chloride Level 105, Carbon Dioxide Level 30, Anion Gap 7, Blood Urea Nitrogen 9, Creatinine 0.6, Estimat Glomerular Filtration Rate > 60, Glucose Level 132H, Calcium Level 8.4L, Phosphorus Level 2.5, Magnesium Level 2.0 Height (Feet): 5 Height (Inches): 5.00 Weight (Pounds): 187 General Appearance: lethargic EENT: normal ENT inspection Neck: supple Cardiovascular: normal rate Respiratory/Chest: decreased breath sounds Abdomen: normal bowel sounds, non tender, soft Extremities: non-tender Samuel Quinn MD December 18, 2018 11:48
--- NOTE | 2018-12-18 14:42 | Infectious Diseases Prog Note ---
Assessment/Plan Assessment/Plan Abx: IV Vancomycin 12/15- Cefepime 12/15- Amikacin 12/16- Flagyl x 1 12/15 Assessment: Septic shock -likely 2ry to PNA- now off pressors -CXR: Mild basal atelectasis. -u/a no pyuria, nit eg, leuk +1; ucx neg -CT abd/p w/: Patchy posterior basilar consolidation. Consider pneumonia. Small bilateral pleural effusions noted. Artifact limiting evaluation of the upper abdomen. Possible tiny nonobstructive stone in the right kidney. Gastrostomy in good position. Question of a tiny gallstone. Heterogeneous uterus nonspecific. Calvarial bone flap in the right lower quadrant of the abdomen. -influenza sc neg -sp cx, legionella ag urine p Gram positive bacteremia- contaminant vs real -Bcx 08/07 CONS; 12/17 Bcx p Low grade fever; improvnig Leukocytosis; SP Irregular/blanching erythematous rash (LE, lower abdomen)- ?erypsipelas vs 1ry dermatological rash (not infectious) vegetative state anoxic encephalopathy COPD DM2 seizure disorder anemia hypothyroidisim CVA chronic vent PEG custodial resident Plan: -Continue empiric IV Vancomycin #4, Cefepime #4 and IV Amikacin #3 pending cultures -f/u cx (Bl, sp) -Monitor CBC/CMP, temperatures -PEG/Trach/ICU care -wound care per surgical team Thank you for this consultation. Will continue to follow along with you. Discussed with RN. Subjective Allergies: Coded Allergies: No Known Allergies (Unverified , 04/14/14) Subjective afebrile in ~48hrs leukocytosis resolved Dopamine off now Bcx NTD Objective Vital Signs Last 24 Hour Vital Signs Date Time Temp Pulse Resp B/P (MAP) Pulse Ox O2 Delivery O2 Flow Rate FiO2 12/18/18 13:00 66 20 106/59 (75) 95 12/18/18 12:42 T-piece 12.0 40 12/18/18 12:42 100 T-piece 12.0 40 12/18/18 12:00 70 12/18/18 12:00 12.0 40 12/18/18 12:00 T-piece 12.0 12/18/18 12:00 99.0 65 19 116/67 (83) 96 12/18/18 11:00 63 21 115/62 (79) 94 12/18/18 10:00 68 21 123/63 (83) 99 12/18/18 09:00 68 22 122/66 (84) 96 12/18/18 08:00 98.9 68 17 111/62 (78) 94 12/18/18 08:00 T-piece 12.0 12/18/18 08:00 12.0 40 12/18/18 08:00 70 12/18/18 07:00 69 19 116/62 (80) 92 12/18/18 06:56 T-piece 12.0 40 12/18/18 06:56 74 20 T-piece 12.0 40 12/18/18 06:56 100 T-piece 12.0 40 12/18/18 06:00 69 23 151/80 (103) 93 12/18/18 05:00 58 22 106/64 (78) 96 12/18/18 04:00 74 29 113/64 (80) 97 12/18/18 04:00 12.0 40 12/18/18 04:00 T-piece 12.0 12/18/18 04:00 68 12/18/18 03:00 65 20 111/61 (78) 99 12/18/18 02:00 74 27 109/70 (83) 99 12/18/18 01:08 100 T-piece 12.0 40 12/18/18 01:08 T-piece 12.0 40 12/18/18 01:02 53 20 90/44 (59) 100 12/18/18 01:00 55 21 83/41 (55) 100 12/18/18 00:00 57 12/18/18 00:00 T-piece 12.0 12/18/18 00:00 98.5 91 20 113/62 (79) 96 12/17/18 23:18 65 24 98/52 (67) 100 12/17/18 23:02 58 25 88/50 (63) 97 12/17/18 22:30 63 23 100/58 (72) 98 12/17/18 22:00 73 23 119/71 (87) 99 12/17/18 21:00 82 22 125/100 (108) 99 12/17/18 20:30 80 26 105/62 (76) 99 12/17/18 20:00 12.0 40 12/17/18 20:00 65 12/17/18 20:00 98.7 68 24 102/65 (77) 99 12/17/18 20:00 T-piece 12.0 12/17/18 19:40 T-piece 12.0 40 12/17/18 19:39 100 T-piece 12.0 40 12/17/18 19:39 66 25 T-piece 12.0 40 12/17/18 19:07 122/68 12/17/18 19:00 64 18 122/68 (86) 100 12/17/18 18:00 75 23 92/57 (69) 100 12/17/18 17:00 86 30 101/57 (72) 100 12/17/18 17:00 116/68 12/17/18 16:30 98.9 72 22 86/70 (75) 98 12/17/18 16:00 78 12/17/18 16:00 12.0 40 12/17/18 16:00 98.9 72 22 97/44 (61) 98 12/17/18 16:00 T-piece 12.0 12/17/18 15:30 71 22 109/50 (69) 98 12/17/18 15:00 71 22 90/48 (62) 98 Height (Feet): 5 Height (Inches): 5.00 Weight (Pounds): 187 Objective General Appearance: no apparent distress Lines, tubes and drains: peripheral HEENT: normocephalic, mucous membranes moist Neck: normal inspection Respiratory/Chest: no respiratory distress, no accessory muscle use, decreased breath sounds, other Cardiovascular/Chest: tachycardia, other Abdomen: no organomegaly, no mass, hypoactive bowel sounds, other - cellulitis Extremities: normal inspection Skin Exam: warm/dry, erythematous patches, blanchin in a irregular fashion on b /l Legs, thighs and lower abdomen Microbiology Date/Time Source Procedure Growth Status 12/17/18 03:00 Nasopharynx - Final Complete 12/17/18 03:00 Nasopharynx - Final Complete 12/16/18 21:00 Sputum Induced Gram Stain - Final Resulted 12/16/18 21:00 Sputum Induced Sputum Culture Pending Resulted 12/16/18 20:30 Indwelling Cath Urine Culture - Final NO GROWTH AFTER 48 HOURS Complete Laboratory Tests Test 12/18/18 01:00 12/18/18 04:00 Vancomycin Level Trough 16.4 ug/mL (5.0-12.0) H White Blood Count 8.5 K/UL (4.8-10.8) Red Blood Count 3.63 M/UL (4.20-5.40) L Hemoglobin 11.1 G/DL (12.0-16.0) L Hematocrit 33.5 % (37.0-47.0) L Mean Corpuscular Volume 92 FL (80-99) Mean Corpuscular Hemoglobin 30.4 PG (27.0-31.0) Mean Corpuscular Hemoglobin Concent 33.0 G/DL (32.0-36.0) Red Cell Distribution Width 13.2 % (11.6-14.8) Platelet Count 222 K/UL (150-450) Mean Platelet Volume 7.8 FL (6.5-10.1) Neutrophils (%) (Auto) 70.6 % (45.0-75.0) Lymphocytes (%) (Auto) 17.3 % (20.0-45.0) L Monocytes (%) (Auto) 6.9 % (1.0-10.0) Eosinophils (%) (Auto) 4.5 % (0.0-3.0) H Basophils (%) (Auto) 0.7 % (0.0-2.0) Sodium Level 142 MMOL/L (136-145) Potassium Level 2.9 MMOL/L (3.5-5.1) L Chloride Level 105 MMOL/L (98-107) Carbon Dioxide Level 30 MMOL/L (21-32) Anion Gap 7 mmol/L (5-15) Blood Urea Nitrogen 9 mg/dL (7-18) Creatinine 0.6 MG/DL (0.55-1.30) Estimat Glomerular Filtration Rate > 60 mL/min (>60) Glucose Level 132 MG/DL (74-106) H Calcium Level 8.4 MG/DL (8.5-10.1) L Phosphorus Level 2.5 MG/DL (2.5-4.9) Magnesium Level 2.0 MG/DL (1.8-2.4) Current Medications Medications (Trade) Dose Ordered Sig/Neo Route PRN Reason Start Time Stop Time Status Last Admin Dose Admin Acetaminophen (Tylenol) 650 mg Q4H PRN ORAL fever 12/15/18 14:00 01/14/19 13:59 12/17/18 05:48 Albuterol/ Ipratropium (Albuterol/ Ipratropium) 3 ml Q4H PRN HHN Shortness of Breath 12/15/18 14:00 12/20/18 13:59 Amikacin Protocol (Amikacin pharmacy to dose) 1 ea DAILY PRN MISC Per rx protocol 12/16/18 10:45 01/15/19 10:44 Amikacin Sulfate 1000 mg/Sodium Chloride 114 ml @ 114 mls/hr Q24H IV 12/17/18 14:00 12/23/18 13:59 12/17/18 14:16 Aspirin (Ecotrin) 81 mg DAILY ORAL 12/17/18 11:30 01/16/19 11:29 12/18/18 08:06 Atorvastatin Calcium (Lipitor) 20 mg BEDTIME ORAL 12/17/18 21:00 01/16/19 20:59 12/17/18 20:24 Cefepime HCl 2 gm/ Dextrose 110 ml @ 220 mls/hr Q24H IV 12/16/18 01:00 12/23/18 00:59 12/18/18 01:02 Chlorhexidine Gluconate (Cathleen-Hex 2%) 1 applic DAILY@2000 TOPIC 12/15/18 20:00 01/14/19 19:59 12/17/18 20:23 Dopamine HCl/ Dextrose 250 ml @ 0 mls/hr Q24H IV 12/16/18 18:00 01/15/19 17:59 12/17/18 09:00 Heparin Sodium (Porcine) (Heparin 5000 units/ml) 5,000 units EVERY 12 HOURS SUBQ 12/15/18 21:00 01/14/19 20:59 12/18/18 08:11 Levothyroxine Sodium (Synthroid) 100 mcg DAILY@0630 ORAL 12/17/18 06:30 01/16/19 06:29 12/18/18 06:35 Midodrine (Pro-Amatine) 5 mg Q12HR ORAL 12/17/18 21:00 01/16/19 20:59 12/18/18 08:07 Morphine Sulfate (Morphine Sulfate) 2 mg Q4H PRN IVP Moderate Pain (Pain Scale 4-6) 12/15/18 14:00 12/22/18 13:59 Norepinephrine Bitartrate 4 mg/ Dextrose 250 ml @ 0 mls/hr Q24H IV 12/15/18 19:07 01/14/19 19:06 12/16/18 05:50 Ondansetron HCl (Zofran) 4 mg Q6H PRN IVP Nausea & Vomiting 12/15/18 14:00 01/14/19 13:59 Polyethylene Glycol (Miralax) 17 gm DAILYPRN PRN ORAL Constipation 12/15/18 14:00 01/14/19 13:59 Potassium Chloride (K-Dur) 40 meq ONCE GT 12/18/18 14:00 12/18/18 15:00 Sodium Chloride 1,000 ml @ 100 mls/hr Q10H IV 12/16/18 10:45 01/15/19 10:44 12/18/18 12:13 Temazepam (Restoril) 15 mg HSPRN PRN ORAL Insomnia 12/15/18 14:00 12/22/18 13:59 Vancomycin HCl (Vanco rx to dose) 1 ea DAILY PRN MISC PER PHARMACY 12/15/18 14:15 01/14/19 14:14 Vancomycin HCl 1 gm/Dextrose 275 ml @ 183.708 mls/hr Q8H IVPB 12/17/18 02:00 12/22/18 01:59 12/18/18 09:15 Misti De Santiago M.D. December 18, 2018 14:42
[2018-12-18] MEDS: Amikacin 1,000 MG in NS 110 ML IV SCH (14:55)
[2018-12-18] MEDS: DOPamine 400mg/250ml 250 ML IV SCH (17:46)
[2018-12-18] MEDS: Norepinephrine 4mg in D5W 250ml IV SCH (19:07)
[2018-12-18] MEDS: Dyna-Hex 2% Top Sol 2oz TOPIC SCH (21:00)
[2018-12-18] MEDS: Atorvastatin 20mg tab ORAL SCH (21:00)
[2018-12-19] VITALS (25 sets, daily range): BP systolic 89–157; BP diastolic 46–109
[2018-12-19] MEDS: Cefepime HCl 2 GM in D5W 110 ML IV SCH (01:09)
[2018-12-19] MEDS: Vancomycin 1gm in Dextrose 275ml IVPB SCH ×2 (01:09→10:11)
[2018-12-19 05:30] LABS: BASOPHILS % (AUTO) 0.9 % (0.0-2.0); EOSINOPHILS % (AUTO) 5.6 % (0.0-3.0); HEMATOCRIT 34.8 % (37.0-47.0); HEMOGLOBIN 11.3 G/DL (12.0-16.0); LYMPHOCYTES % (AUTO) 18.4 % (20.0-45.0); MEAN CORPUSCULAR VOLUME 92 FL (80-99); MONOCYTES % (AUTO) 9.1 % (1.0-10.0); PLATELET COUNT 313 K/UL (150-450); RED BLOOD COUNT 3.78 M/UL (4.20-5.40); RED CELL DISTRIBUTION WIDTH 13.3 % (11.6-14.8); WHITE BLOOD COUNT 8.2 K/UL (4.8-10.8)
[2018-12-19 05:51] LABS: ANION GAP 6 mmol/L (5-15); BLOOD UREA NITROGEN 6 mg/dL (7-18); CALCIUM 8.5 MG/DL (8.5-10.1); CARBON DIOXIDE 31 MMOL/L (21-32); CHLORIDE 107 MMOL/L (98-107); CREATININE 0.6 MG/DL (0.55-1.30); POTASSIUM 3.1 MMOL/L (3.5-5.1); SODIUM 144 MMOL/L (136-145)
--- NOTE | 2018-12-19 08:23 | General Progress Note ---
Assessment/Plan Problem List: (1) Chronic respiratory failure ICD Codes: J96.10 - Chronic respiratory failure SNOMED: 28524326 (2) Tracheostomy dependent ICD Codes: Z93.0 - Tracheostomy dependent SNOMED: 250443697 (3) Seizure disorder ICD Codes: G40.909 - Seizure disorder SNOMED: 474402441 (4) COPD (chronic obstructive pulmonary disease) ICD Codes: J44.9 - Chronic obstructive pulmonary disease, unspecified SNOMED: 87389171 (5) Leaking PEG tube ICD Codes: K94.23 - Gastrostomy malfunction SNOMED: 661003296 Status: unchanged Assessment/Plan: GTF GT care abx respiratory care replace k fu labs Subjective ROS Limited/Unobtainable: No Allergies: Coded Allergies: No Known Allergies (Unverified , 04/14/14) Objective Last 24 Hour Vital Signs Date Time Temp Pulse Resp B/P (MAP) Pulse Ox O2 Delivery O2 Flow Rate FiO2 12/19/18 07:11 86 20 T-piece 12.0 40 12/19/18 07:11 T-piece 12.0 40 12/19/18 07:11 94 T-piece 12.0 40 12/19/18 07:00 76 25 113/63 (80) 91 12/19/18 06:00 79 31 110/65 (80) 90 12/19/18 05:35 78 27 105/66 (79) 89 12/19/18 05:00 68 24 89/54 (66) 91 12/19/18 04:00 98.7 79 24 100/66 (77) 90 12/19/18 04:00 T-piece 12.0 12/19/18 04:00 81 12/19/18 04:00 12.0 40 12/19/18 03:48 98.7 12/19/18 03:00 82 24 156/87 (110) 95 12/19/18 02:00 76 31 120/71 (87) 94 12/19/18 01:00 66 21 122/94 (103) 95 12/19/18 00:40 T-piece 12.0 40 12/19/18 00:40 98 T-piece 12.0 40 12/19/18 00:00 72 12/19/18 00:00 T-piece 12.0 12/19/18 00:00 98.7 80 23 127/82 (97) 97 12/18/18 23:00 71 19 118/63 (81) 91 12/18/18 22:00 67 23 120/73 (89) 93 12/18/18 21:00 69 17 121/67 (85) 98 12/18/18 20:00 T-piece 12.0 12/18/18 20:00 60 12/18/18 20:00 12.0 40 12/18/18 20:00 67 17 123/66 (85) 96 12/18/18 19:07 120/64 12/18/18 19:00 98.6 55 17 107/67 (80) 98 12/18/18 18:57 T-piece 12.0 40 12/18/18 18:57 96 T-piece 12.0 40 12/18/18 18:56 58 20 T-piece 12.0 40 12/18/18 18:00 61 17 120/64 (82) 98 12/18/18 17:00 63 20 126/66 (86) 99 12/18/18 16:00 T-piece 12.0 12/18/18 16:00 98.9 64 18 109/66 (80) 96 12/18/18 16:00 66 12/18/18 16:00 12.0 40 12/18/18 15:00 74 21 113/69 (84) 94 12/18/18 14:00 54 19 95/55 (68) 94 12/18/18 13:00 66 20 106/59 (75) 95 12/18/18 12:42 T-piece 12.0 40 12/18/18 12:42 100 T-piece 12.0 40 12/18/18 12:00 70 12/18/18 12:00 12.0 40 12/18/18 12:00 T-piece 12.0 12/18/18 12:00 99.0 65 19 116/67 (83) 96 12/18/18 11:00 63 21 115/62 (79) 94 12/18/18 10:00 68 21 123/63 (83) 99 12/18/18 09:00 68 22 122/66 (84) 96 Intake and Output 12/18/18 12/19/18 19:00 07:00 Intake Total 2145.124 ml 2405.000 ml Output Total 680 ml 1560 ml Balance 1465.124 ml 845.000 ml Intake Free Water 300 ml 100 ml IV Total 1365.124 ml 1585.000 ml Tube Feeding 480 ml 720 ml Output Urine Total 680 ml 1560 ml # Bowel Movements 2 3 Laboratory Tests 12/19/18 04:00: White Blood Count 8.2, Red Blood Count 3.78L, Hemoglobin 11.3L, Hematocrit 34.8L , Mean Corpuscular Volume 92, Mean Corpuscular Hemoglobin 29.9, Mean Corpuscular Hemoglobin Concent 32.5, Red Cell Distribution Width 13.3, Platelet Count 313, Mean Platelet Volume 6.4L, Neutrophils (%) (Auto) 66.0, Lymphocytes ( %) (Auto) 18.4L, Monocytes (%) (Auto) 9.1, Eosinophils (%) (Auto) 5.6H, Basophils (%) (Auto) 0.9, Sodium Level 144, Potassium Level 3.1L, Chloride Level 107, Carbon Dioxide Level 31, Anion Gap 6, Blood Urea Nitrogen 6L, Creatinine 0.6, Estimat Glomerular Filtration Rate > 60, Glucose Level 107H, Calcium Level 8.5 Height (Feet): 5 Height (Inches): 5.00 Weight (Pounds): 187 General Appearance: no apparent distress EENT: normal ENT inspection Neck: supple Cardiovascular: normal rate Respiratory/Chest: decreased breath sounds Abdomen: normal bowel sounds, non tender, soft Extremities: non-tender Samuel Quinn MD December 19, 2018 08:23
[2018-12-19] MEDS: Aspirin Baby 81mg GT SCH (08:43)
[2018-12-19] MEDS: Heparin 5000 units/ml inj SUBQ SCH ×2 (08:44→20:35)
[2018-12-19] MEDS: Pantoprazole Inj IVP SCH (10:31)
--- NOTE | 2018-12-19 10:55 | Infectious Diseases Prog Note ---
Assessment/Plan Assessment/Plan Abx: IV Vancomycin 12/15- Cefepime 12/15- Amikacin 12/16- Flagyl x 1 12/15 Assessment: Septic shock -likely 2ry to PNA- now off pressors -CXR: Mild basal atelectasis. -u/a no pyuria, nit eg, leuk +1; ucx neg -CT abd/p w/: Patchy posterior basilar consolidation. Consider pneumonia. Small bilateral pleural effusions noted. Artifact limiting evaluation of the upper abdomen. Possible tiny nonobstructive stone in the right kidney. Gastrostomy in good position. Question of a tiny gallstone. Heterogeneous uterus nonspecific. Calvarial bone flap in the right lower quadrant of the abdomen. -influenza sc neg -sp cx GNB #1, #2 -legionella ag urine p Gram positive bacteremia- likely contaminant -Bcx 08/07 CONS; 12/17 Bcx NTD Low grade fever; improvnig Leukocytosis; SP Irregular/blanching erythematous rash (LE, lower abdomen)- ?erypsipelas vs 1ry dermatological rash (not infectious) vegetative state anoxic encephalopathy COPD DM2 seizure disorder anemia hypothyroidisim CVA chronic vent PEG longterm resident Plan: -d/c empiric IV Vancomycin #5 -Continue Cefepime #5 and IV Amikacin #4 pending sputum cultures -f/u cx (Bl, sp) -Monitor CBC/CMP, temperatures -PEG/Trach/ICU care -wound care per surgical team Thank you for this consultation. Will continue to follow along with you. Discussed with RN. Subjective Allergies: Coded Allergies: No Known Allergies (Unverified , 04/14/14) Subjective afebrile in ~48hrs leukocytosis resolved Dopamine off now Bcx NTD Objective Vital Signs Last 24 Hour Vital Signs Date Time Temp Pulse Resp B/P (MAP) Pulse Ox O2 Delivery O2 Flow Rate FiO2 12/19/18 10:27 85 28 95 T-piece 12.0 40 12/19/18 10:20 40 12/19/18 10:20 87 33 94 T-piece 12.0 40 12/19/18 10:00 75 39 140/68 (92) 92 12/19/18 08:59 75 29 106/62 (77) 91 12/19/18 08:00 40 12/19/18 08:00 98.7 77 34 109/65 (80) 92 12/19/18 08:00 T-piece 12.0 12/19/18 07:20 79 12/19/18 07:11 86 20 T-piece 12.0 40 12/19/18 07:11 T-piece 12.0 40 12/19/18 07:11 94 T-piece 12.0 40 12/19/18 07:00 76 25 113/63 (80) 91 12/19/18 06:00 79 31 110/65 (80) 90 12/19/18 05:35 78 27 105/66 (79) 89 12/19/18 05:00 68 24 89/54 (66) 91 12/19/18 04:00 98.7 79 24 100/66 (77) 90 12/19/18 04:00 T-piece 12.0 12/19/18 04:00 81 12/19/18 04:00 12.0 40 12/19/18 03:48 98.7 12/19/18 03:00 82 24 156/87 (110) 95 12/19/18 02:00 76 31 120/71 (87) 94 12/19/18 01:00 66 21 122/94 (103) 95 12/19/18 00:40 T-piece 12.0 40 12/19/18 00:40 98 T-piece 12.0 40 12/19/18 00:00 72 12/19/18 00:00 T-piece 12.0 12/19/18 00:00 98.7 80 23 127/82 (97) 97 12/18/18 23:00 71 19 118/63 (81) 91 12/18/18 22:00 67 23 120/73 (89) 93 12/18/18 21:00 69 17 121/67 (85) 98 12/18/18 20:00 T-piece 12.0 12/18/18 20:00 60 12/18/18 20:00 12.0 40 12/18/18 20:00 67 17 123/66 (85) 96 12/18/18 19:07 120/64 12/18/18 19:00 98.6 55 17 107/67 (80) 98 12/18/18 18:57 T-piece 12.0 40 12/18/18 18:57 96 T-piece 12.0 40 12/18/18 18:56 58 20 T-piece 12.0 40 12/18/18 18:00 61 17 120/64 (82) 98 12/18/18 17:00 63 20 126/66 (86) 99 12/18/18 16:00 T-piece 12.0 12/18/18 16:00 98.9 64 18 109/66 (80) 96 12/18/18 16:00 66 12/18/18 16:00 12.0 40 12/18/18 15:00 74 21 113/69 (84) 94 12/18/18 14:00 54 19 95/55 (68) 94 12/18/18 13:00 66 20 106/59 (75) 95 12/18/18 12:42 T-piece 12.0 40 12/18/18 12:42 100 T-piece 12.0 40 12/18/18 12:00 70 12/18/18 12:00 12.0 40 12/18/18 12:00 T-piece 12.0 12/18/18 12:00 99.0 65 19 116/67 (83) 96 12/18/18 11:00 63 21 115/62 (79) 94 Height (Feet): 5 Height (Inches): 5.00 Weight (Pounds): 187 Objective General Appearance: no apparent distress Lines, tubes and drains: peripheral HEENT: normocephalic, mucous membranes moist Neck: normal inspection Respiratory/Chest: no respiratory distress, no accessory muscle use, decreased breath sounds, other Cardiovascular/Chest: tachycardia, other Abdomen: no organomegaly, no mass, hypoactive bowel sounds, other - cellulitis Extremities: normal inspection Skin Exam: warm/dry, erythematous patches, blanchin in a irregular fashion on b /l Legs, thighs and lower abdomen Microbiology Date/Time Source Procedure Growth Status 12/17/18 17:00 Blood Blood Culture - Preliminary NO GROWTH AFTER 24 HOURS Resulted 12/17/18 12:56 Blood Blood Culture - Preliminary NO GROWTH AFTER 24 HOURS Resulted 12/17/18 03:00 Nasopharynx - Final Complete 12/17/18 03:00 Nasopharynx - Final Complete 12/16/18 21:00 Sputum Induced Gram Stain - Final Resulted 12/16/18 21:00 Sputum Culture - Preliminary Gram Negative Bacillus 1 Gram Negative Bacillus 2 Resulted 12/16/18 20:30 Indwelling Cath Urine Culture - Final NO GROWTH AFTER 48 HOURS Complete Laboratory Tests Test 12/19/18 04:00 White Blood Count 8.2 K/UL (4.8-10.8) Red Blood Count 3.78 M/UL (4.20-5.40) L Hemoglobin 11.3 G/DL (12.0-16.0) L Hematocrit 34.8 % (37.0-47.0) L Mean Corpuscular Volume 92 FL (80-99) Mean Corpuscular Hemoglobin 29.9 PG (27.0-31.0) Mean Corpuscular Hemoglobin Concent 32.5 G/DL (32.0-36.0) Red Cell Distribution Width 13.3 % (11.6-14.8) Platelet Count 313 K/UL (150-450) Mean Platelet Volume 6.4 FL (6.5-10.1) L Neutrophils (%) (Auto) 66.0 % (45.0-75.0) Lymphocytes (%) (Auto) 18.4 % (20.0-45.0) L Monocytes (%) (Auto) 9.1 % (1.0-10.0) Eosinophils (%) (Auto) 5.6 % (0.0-3.0) H Basophils (%) (Auto) 0.9 % (0.0-2.0) Sodium Level 144 MMOL/L (136-145) Potassium Level 3.1 MMOL/L (3.5-5.1) L Chloride Level 107 MMOL/L (98-107) Carbon Dioxide Level 31 MMOL/L (21-32) Anion Gap 6 mmol/L (5-15) Blood Urea Nitrogen 6 mg/dL (7-18) L Creatinine 0.6 MG/DL (0.55-1.30) Estimat Glomerular Filtration Rate > 60 mL/min (>60) Glucose Level 107 MG/DL (74-106) H Calcium Level 8.5 MG/DL (8.5-10.1) Current Medications Medications (Trade) Dose Ordered Sig/Neo Route PRN Reason Start Time Stop Time Status Last Admin Dose Admin Acetaminophen (Tylenol) 650 mg Q4H PRN ORAL fever 12/15/18 14:00 01/14/19 13:59 12/17/18 05:48 Albuterol/ Ipratropium (Albuterol/ Ipratropium) 3 ml Q4H PRN HHN Shortness of Breath 12/15/18 14:00 12/20/18 13:59 12/19/18 10:25 Amikacin Protocol (Amikacin pharmacy to dose) 1 ea DAILY PRN MISC Per rx protocol 12/16/18 10:45 01/15/19 10:44 Amikacin Sulfate 1000 mg/Sodium Chloride 114 ml @ 114 mls/hr Q24H IV 12/17/18 14:00 12/23/18 13:59 12/18/18 14:55 Aspirin (ASA) 81 mg DAILY GT 12/19/18 09:00 01/18/19 08:59 12/19/18 08:43 Atorvastatin Calcium (Lipitor) 20 mg BEDTIME ORAL 12/17/18 21:00 01/16/19 20:59 12/18/18 21:00 Cefepime HCl 2 gm/ Dextrose 110 ml @ 220 mls/hr Q24H IV 12/16/18 01:00 12/23/18 00:59 12/19/18 01:09 Chlorhexidine Gluconate (Cathleen-Hex 2%) 1 applic DAILY@2000 TOPIC 12/15/18 20:00 01/14/19 19:59 12/18/18 21:00 Dopamine HCl/ Dextrose 250 ml @ 0 mls/hr Q24H IV 12/16/18 18:00 01/15/19 17:59 12/17/18 09:00 Heparin Sodium (Porcine) (Heparin 5000 units/ml) 5,000 units EVERY 12 HOURS SUBQ 12/15/18 21:00 01/14/19 20:59 12/19/18 08:44 Levothyroxine Sodium (Synthroid) 100 mcg DAILY@0630 ORAL 12/17/18 06:30 01/16/19 06:29 12/19/18 06:21 Midodrine (Pro-Amatine) 5 mg Q12HR ORAL 12/17/18 21:00 01/16/19 20:59 12/19/18 08:43 Morphine Sulfate (Morphine Sulfate) 2 mg Q4H PRN IVP Moderate Pain (Pain Scale 4-6) 12/15/18 14:00 12/22/18 13:59 12/19/18 03:18 Norepinephrine Bitartrate 4 mg/ Dextrose 250 ml @ 0 mls/hr Q24H IV 12/15/18 19:07 01/14/19 19:06 12/16/18 05:50 Ondansetron HCl (Zofran) 4 mg Q6H PRN IVP Nausea & Vomiting 12/15/18 14:00 01/14/19 13:59 12/19/18 03:17 Pantoprazole (Protonix) 40 mg DAILY IVP 12/19/18 10:30 01/18/19 10:29 12/19/18 10:31 Polyethylene Glycol (Miralax) 17 gm DAILYPRN PRN ORAL Constipation 12/15/18 14:00 01/14/19 13:59 Sodium Chloride 1,000 ml @ 100 mls/hr Q10H IV 12/16/18 10:45 01/15/19 10:44 12/19/18 08:00 Temazepam (Restoril) 15 mg HSPRN PRN ORAL Insomnia 12/15/18 14:00 12/22/18 13:59 Vancomycin HCl (Vanco rx to dose) 1 ea DAILY PRN MISC PER PHARMACY 12/15/18 14:15 01/14/19 14:14 Vancomycin HCl 1 gm/Dextrose 275 ml @ 183.708 mls/hr Q8H IVPB 12/17/18 02:00 12/22/18 01:59 12/19/18 10:11 Misti De Santiago M.D. December 19, 2018 10:55
--- NOTE | 2018-12-19 11:23 | Surgery Progress Note ---
Surgery Progress Note Subjective Additional Comments no acute events. on vent via trach. comfortable appearing. exam unchanged. labs noted Objective Last 24 Hour Vital Signs Date Time Temp Pulse Resp B/P (MAP) Pulse Ox O2 Delivery O2 Flow Rate FiO2 12/19/18 11:00 83 37 97/55 (69) 88 12/19/18 10:27 85 28 95 T-piece 12.0 40 12/19/18 10:20 40 12/19/18 10:20 87 33 94 T-piece 12.0 40 12/19/18 10:00 75 39 140/68 (92) 92 12/19/18 08:59 75 29 106/62 (77) 91 12/19/18 08:00 40 12/19/18 08:00 98.7 77 34 109/65 (80) 92 12/19/18 08:00 T-piece 12.0 12/19/18 07:20 79 12/19/18 07:11 86 20 T-piece 12.0 40 12/19/18 07:11 T-piece 12.0 40 12/19/18 07:11 94 T-piece 12.0 40 12/19/18 07:00 76 25 113/63 (80) 91 12/19/18 06:00 79 31 110/65 (80) 90 12/19/18 05:35 78 27 105/66 (79) 89 12/19/18 05:00 68 24 89/54 (66) 91 12/19/18 04:00 98.7 79 24 100/66 (77) 90 12/19/18 04:00 T-piece 12.0 12/19/18 04:00 81 12/19/18 04:00 12.0 40 12/19/18 03:48 98.7 12/19/18 03:00 82 24 156/87 (110) 95 12/19/18 02:00 76 31 120/71 (87) 94 12/19/18 01:00 66 21 122/94 (103) 95 12/19/18 00:40 T-piece 12.0 40 12/19/18 00:40 98 T-piece 12.0 40 12/19/18 00:00 72 12/19/18 00:00 T-piece 12.0 12/19/18 00:00 98.7 80 23 127/82 (97) 97 12/18/18 23:00 71 19 118/63 (81) 91 12/18/18 22:00 67 23 120/73 (89) 93 12/18/18 21:00 69 17 121/67 (85) 98 12/18/18 20:00 T-piece 12.0 12/18/18 20:00 60 12/18/18 20:00 12.0 40 12/18/18 20:00 67 17 123/66 (85) 96 12/18/18 19:07 120/64 12/18/18 19:00 98.6 55 17 107/67 (80) 98 12/18/18 18:57 T-piece 12.0 40 12/18/18 18:57 96 T-piece 12.0 40 12/18/18 18:56 58 20 T-piece 12.0 40 12/18/18 18:00 61 17 120/64 (82) 98 12/18/18 17:00 63 20 126/66 (86) 99 12/18/18 16:00 T-piece 12.0 12/18/18 16:00 98.9 64 18 109/66 (80) 96 12/18/18 16:00 66 12/18/18 16:00 12.0 40 12/18/18 15:00 74 21 113/69 (84) 94 12/18/18 14:00 54 19 95/55 (68) 94 12/18/18 13:00 66 20 106/59 (75) 95 12/18/18 12:42 T-piece 12.0 40 12/18/18 12:42 100 T-piece 12.0 40 12/18/18 12:00 70 12/18/18 12:00 12.0 40 12/18/18 12:00 T-piece 12.0 12/18/18 12:00 99.0 65 19 116/67 (83) 96 I&O Intake and Output 12/18/18 12/19/18 18:59 06:59 Intake Total 1985.124 ml 2505.000 ml Output Total 755 ml 1505 ml Balance 1230.124 ml 1000.000 ml Intake Free Water 200 ml 200 ml IV Total 1365.124 ml 1585.000 ml Tube Feeding 420 ml 720 ml Output Urine Total 755 ml 1505 ml # Bowel Movements 2 3 Dressing: dry Wound: clean Drains: other Cardiovascular: RSR Respiratory: clear Abdomen: soft, present bowel sounds, non-distended Extremities: no cyanosis Laboratory Tests Test 12/19/18 04:00 White Blood Count 8.2 K/UL (4.8-10.8) Red Blood Count 3.78 M/UL (4.20-5.40) L Hemoglobin 11.3 G/DL (12.0-16.0) L Hematocrit 34.8 % (37.0-47.0) L Mean Corpuscular Volume 92 FL (80-99) Mean Corpuscular Hemoglobin 29.9 PG (27.0-31.0) Mean Corpuscular Hemoglobin Concent 32.5 G/DL (32.0-36.0) Red Cell Distribution Width 13.3 % (11.6-14.8) Platelet Count 313 K/UL (150-450) Mean Platelet Volume 6.4 FL (6.5-10.1) L Neutrophils (%) (Auto) 66.0 % (45.0-75.0) Lymphocytes (%) (Auto) 18.4 % (20.0-45.0) L Monocytes (%) (Auto) 9.1 % (1.0-10.0) Eosinophils (%) (Auto) 5.6 % (0.0-3.0) H Basophils (%) (Auto) 0.9 % (0.0-2.0) Sodium Level 144 MMOL/L (136-145) Potassium Level 3.1 MMOL/L (3.5-5.1) L Chloride Level 107 MMOL/L (98-107) Carbon Dioxide Level 31 MMOL/L (21-32) Anion Gap 6 mmol/L (5-15) Blood Urea Nitrogen 6 mg/dL (7-18) L Creatinine 0.6 MG/DL (0.55-1.30) Estimat Glomerular Filtration Rate > 60 mL/min (>60) Glucose Level 107 MG/DL (74-106) H Calcium Level 8.5 MG/DL (8.5-10.1) Plan Problems: (1) Lactic acid acidosis (2) UTI (lower urinary tract infection) (3) Septic shock Assessment & Plan: diffuse rash noted on arms, trunk legs abdominal wall superficial cellulitis leukocytosis - resolved fevers - resolved micro noted No acute surgical intervention planned IV abx trend labs will follow with exam and recs thank you (4) Pneumonia (5) Hypothyroidism (6) Hypotension (7) Acute on chronic respiratory failure (8) Hypernatremia (9) Hypokalemia (10) COPD (chronic obstructive pulmonary disease) (11) Seizure disorder (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 Full thickness pressure injury sacrococcygeal area. Base of wound pale with callused borders.Non-blanchable erythema periwound with additional partial thickness shearing..(L)1cm x (W)0.6cm x (D)0.2cm. Unstageable pressure injury R buttocks.Base of wound has 80% mixed necrosis / slough,20% viable. Clockwise at 6o'clock an area of induration noted.Small amt seropurulent exudate noted. No odor noted. (L)9 cm x (W)7cm. Periwound indurated with non-blanchable erythema with additional partial thickness wounds. Full thickness pressure injury noted to L buttocks.Base of wound is viable with trace amt of biofilm,(+) maceration along borders. (L)1.4cm x (W)1cm x (D) 0.2cm. Non-blanchable erythema with shearing periwound. Shearing with multiple small partial thickness wounds ,and surrounding darker skin tone without induration noted to R and L ischial areas. Tx.Plan: Cleanse wounds Sacrococcygeal, R and L buttocks with Saline. Apply Therhaoney to each wound.Apply Triad Paste periwound. Cover with Optifoam drsgs. Apply Triad Paste to R and L ischium with each incontinence care. Apply Cavilon Skin Barrier to R and L heels. Ciover each heel with Optifoam drsg. Change every 7 days and prn. APM/JANINE Mattress overlay Reposition at least every 2hours or as tolerated. Off-load heels with pillow. (14) Abdominal wall cellulitis (15) Pressure ulcer (16) Chronic respiratory failure (17) Severe sepsis Lazaro Hodges December 19, 2018 11:23
[2018-12-19] MEDS ORDERED: Acetaminophen 650mg/20.3ml GT PRN (11:30)
[2018-12-19] MEDS: Amikacin 1,000 MG in NS 110 ML IV SCH (13:30)
[2018-12-19] MEDS: DOPamine 400mg/250ml 250 ML IV SCH (18:00)
[2018-12-19] MEDS: Norepinephrine 4mg in D5W 250ml IV SCH (19:07)
[2018-12-19] MEDS: Atorvastatin 20mg tab ORAL SCH (20:33)
[2018-12-19] MEDS: Dyna-Hex 2% Top Sol 2oz TOPIC SCH (20:33)
--- NOTE | 2018-12-19 21:28 | General Progress Note ---
Assessment/Plan Problem List: (1) Traumatic brain injury ICD Codes: S06.9X9A - Unspecified intracranial injury with loss of consciousness of unspecified duration, initial encounter SNOMED: 201251742 (2) Leaking PEG tube ICD Codes: K94.23 - Gastrostomy malfunction SNOMED: 765014484 (3) Chronic vegetative state ICD Codes: R40.3 - Persistent vegetative state SNOMED: 43725567 (4) Septic shock ICD Codes: A41.9 - Septic shock; R65.21 - Severe sepsis with septic shock SNOMED: 25739129 (5) Pneumonia ICD Codes: J18.9 - Pneumonia SNOMED: 986606405 (6) Hypothyroidism ICD Codes: E03.9 - Hypothyroidism, unspecified SNOMED: 08228006 (7) COPD (chronic obstructive pulmonary disease) ICD Codes: J44.9 - Chronic obstructive pulmonary disease, unspecified SNOMED: 69554508 (8) Seizure disorder ICD Codes: G40.909 - Seizure disorder SNOMED: 604050295 (9) Tracheostomy dependent ICD Codes: Z93.0 - Tracheostomy dependent SNOMED: 496979851 (10) Chronic respiratory failure ICD Codes: J96.10 - Chronic respiratory failure SNOMED: 73154125 Status: progressing, unchanged Assessment/Plan: afebrile trach resp insufficiency sepsis pna reviewd chart and meds no wheezing Subjective ROS Limited/Unobtainable: Yes Allergies: Coded Allergies: No Known Allergies (Unverified , 04/14/14) Objective Last 24 Hour Vital Signs Date Time Temp Pulse Resp B/P (MAP) Pulse Ox O2 Delivery O2 Flow Rate FiO2 12/19/18 20:06 98.8 63 24 94/53 (67) 93 12/19/18 20:00 12.0 40 12/19/18 20:00 T-piece 12/19/18 20:00 59 12/19/18 19:13 T-piece 12.0 40 12/19/18 19:12 96 T-piece 12.0 40 12/19/18 19:11 62 23 T-piece 12.0 40 12/19/18 19:07 109/63 12/19/18 19:00 68 22 109/63 (78) 97 12/19/18 18:04 72 22 90/61 (71) 98 12/19/18 18:00 90/61 12/19/18 17:10 58 24 157/109 (125) 97 12/19/18 16:04 63 12/19/18 16:00 70 12/19/18 16:00 T-piece 12.0 12/19/18 16:00 99.0 69 19 92/53 (66) 96 12/19/18 15:00 70 34 90/50 (63) 96 12/19/18 14:00 76 31 106/56 (73) 96 12/19/18 13:00 76 22 111/56 (74) 94 12/19/18 12:59 T-piece 12.0 70 12/19/18 12:59 94 T-piece 12.0 70 12/19/18 12:00 T-piece 12.0 12/19/18 12:00 99.6 73 33 100/55 (70) 92 12/19/18 11:40 83 12/19/18 11:34 70 12/19/18 11:26 50 12/19/18 11:00 83 37 97/55 (69) 88 12/19/18 10:27 85 28 95 T-piece 12.0 40 12/19/18 10:20 40 12/19/18 10:20 87 33 94 T-piece 12.0 40 12/19/18 10:00 75 39 140/68 (92) 92 12/19/18 08:59 75 29 106/62 (77) 91 12/19/18 08:00 40 12/19/18 08:00 98.7 77 34 109/65 (80) 92 12/19/18 08:00 T-piece 12.0 12/19/18 07:20 79 12/19/18 07:11 86 20 T-piece 12.0 40 12/19/18 07:11 T-piece 12.0 40 12/19/18 07:11 94 T-piece 12.0 40 12/19/18 07:00 76 25 113/63 (80) 91 12/19/18 06:00 79 31 110/65 (80) 90 12/19/18 05:35 78 27 105/66 (79) 89 12/19/18 05:00 68 24 89/54 (66) 91 12/19/18 04:00 98.7 79 24 100/66 (77) 90 12/19/18 04:00 T-piece 12.0 12/19/18 04:00 81 12/19/18 04:00 12.0 40 12/19/18 03:48 98.7 12/19/18 03:00 82 24 156/87 (110) 95 12/19/18 02:00 76 31 120/71 (87) 94 12/19/18 01:00 66 21 122/94 (103) 95 12/19/18 00:40 T-piece 12.0 40 12/19/18 00:40 98 T-piece 12.0 40 12/19/18 00:00 72 12/19/18 00:00 T-piece 12.0 12/19/18 00:00 98.7 80 23 127/82 (97) 97 12/18/18 23:00 71 19 118/63 (81) 91 12/18/18 22:00 67 23 120/73 (89) 93 Intake and Output 12/18/18 12/19/18 19:00 07:00 Intake Total 2145.124 ml 2405.000 ml Output Total 680 ml 1560 ml Balance 1465.124 ml 845.000 ml Intake Free Water 300 ml 100 ml IV Total 1365.124 ml 1585.000 ml Tube Feeding 480 ml 720 ml Output Urine Total 680 ml 1560 ml # Bowel Movements 2 3 Laboratory Tests 12/19/18 04:00: White Blood Count 8.2, Red Blood Count 3.78L, Hemoglobin 11.3L, Hematocrit 34.8L , Mean Corpuscular Volume 92, Mean Corpuscular Hemoglobin 29.9, Mean Corpuscular Hemoglobin Concent 32.5, Red Cell Distribution Width 13.3, Platelet Count 313, Mean Platelet Volume 6.4L, Neutrophils (%) (Auto) 66.0, Lymphocytes ( %) (Auto) 18.4L, Monocytes (%) (Auto) 9.1, Eosinophils (%) (Auto) 5.6H, Basophils (%) (Auto) 0.9, Sodium Level 144, Potassium Level 3.1L, Chloride Level 107, Carbon Dioxide Level 31, Anion Gap 6, Blood Urea Nitrogen 6L, Creatinine 0.6, Estimat Glomerular Filtration Rate > 60, Glucose Level 107H, Calcium Level 8.5 12/19/18 11:21: Arterial Blood pH 7.444, Arterial Blood Partial Pressure CO2 39.6, Arterial Blood Partial Pressure O2 51.1L, Arterial Blood HCO3 26.5H, Arterial Blood Oxygen Saturation 86.4*L, Arterial Blood Base Excess 2.4H, Bennie Test Positive Height (Feet): 5 Height (Inches): 5.00 Weight (Pounds): 187 General Appearance: lethargic, confused Abdomen: soft Chon Zuluaga MD December 19, 2018 21:28
[2018-12-20] VITALS (20 sets, daily range): BP systolic 105–133; BP diastolic 55–95
[2018-12-20] MEDS: Cefepime HCl 2 GM in D5W 110 ML IV SCH ×2 (00:17→21:25)
[2018-12-20 05:55] LABS: BASOPHILS % (AUTO) 1.2 % (0.0-2.0); EOSINOPHILS % (AUTO) 5.1 % (0.0-3.0); HEMOGLOBIN 10.8 G/DL (12.0-16.0); LYMPHOCYTES % (AUTO) 23.8 % (20.0-45.0); MEAN CORPUSCULAR VOLUME 92 FL (80-99); MONOCYTES % (AUTO) 9.3 % (1.0-10.0); NEUTROPHILS % (AUTO) 60.6 % (45.0-75.0); PLATELET COUNT 305 K/UL (150-450); RED BLOOD COUNT 3.57 M/UL (4.20-5.40); RED CELL DISTRIBUTION WIDTH 13.8 % (11.6-14.8); WHITE BLOOD COUNT 7.7 K/UL (4.8-10.8)
[2018-12-20 06:36] LABS: ALANINE AMINOTRANSFERASE 60 U/L (12-78); ALBUMIN 1.8 G/DL (3.4-5.0); ALBUMIN/GLOBULIN RATIO 0.4 (1.0-2.7); ALKALINE PHOSPHATASE 80 U/L (46-116); ANION GAP 6 mmol/L (5-15); ASPARTATE AMINO TRANSFERASE 52 U/L (15-37); BILIRUBIN,TOTAL 0.2 MG/DL (0.2-1.0); BLOOD UREA NITROGEN 5 mg/dL (7-18); CALCIUM 8.4 MG/DL (8.5-10.1); CARBON DIOXIDE 31 MMOL/L (21-32); CHLORIDE 107 MMOL/L (98-107); CREATININE 0.6 MG/DL (0.55-1.30); POTASSIUM 3.5 MMOL/L (3.5-5.1); SODIUM 144 MMOL/L (136-145)
[2018-12-20] MEDS: Pantoprazole Inj IVP SCH (08:35)
[2018-12-20] MEDS: Aspirin Baby 81mg GT SCH (08:36)
[2018-12-20] MEDS: Heparin 5000 units/ml inj SUBQ SCH ×2 (08:37→20:36)
--- NOTE | 2018-12-20 08:59 | General Progress Note ---
Assessment/Plan Problem List: (1) Chronic respiratory failure ICD Codes: J96.10 - Chronic respiratory failure SNOMED: 56083814 (2) Tracheostomy dependent ICD Codes: Z93.0 - Tracheostomy dependent SNOMED: 237470389 (3) Seizure disorder ICD Codes: G40.909 - Seizure disorder SNOMED: 852583206 (4) COPD (chronic obstructive pulmonary disease) ICD Codes: J44.9 - Chronic obstructive pulmonary disease, unspecified SNOMED: 79470990 (5) Leaking PEG tube ICD Codes: K94.23 - Gastrostomy malfunction SNOMED: 594796080 Status: progressing, unchanged Assessment/Plan: GTF GT care abx respiratory care fu labs Subjective ROS Limited/Unobtainable: No Allergies: Coded Allergies: No Known Allergies (Unverified , 04/14/14) Objective Last 24 Hour Vital Signs Date Time Temp Pulse Resp B/P (MAP) Pulse Ox O2 Delivery O2 Flow Rate FiO2 12/20/18 08:00 12.0 40 12/20/18 08:00 99.1 86 32 111/55 (73) 95 12/20/18 08:00 T-piece 12.0 12/20/18 07:00 75 23 119/63 (81) 100 12/20/18 06:47 71 23 T-piece 12.0 70 12/20/18 06:47 T-piece 12.0 70 12/20/18 06:47 97 T-piece 12.0 70 12/20/18 06:00 74 27 131/55 (80) 98 12/20/18 05:00 71 27 119/55 (76) 95 12/20/18 04:00 12.0 40 12/20/18 04:00 T-piece 12.0 12/20/18 04:00 67 12/20/18 04:00 98.8 69 30 133/61 (85) 96 12/20/18 03:00 69 27 124/95 (105) 100 12/20/18 02:00 64 29 129/57 (81) 92 12/20/18 01:19 95 T-piece 12.0 40 12/20/18 01:19 T-piece 12.0 40 12/20/18 01:00 64 27 121/58 (79) 96 12/20/18 00:00 98.7 76 22 125/62 (83) 97 12/20/18 00:00 T-piece 12.0 12/20/18 00:00 53 12/19/18 23:00 70 26 133/54 (80) 97 12/19/18 22:00 60 25 148/71 (96) 93 12/19/18 21:00 53 22 104/46 (65) 95 12/19/18 20:06 98.8 63 24 94/53 (67) 93 12/19/18 20:00 12.0 40 12/19/18 20:00 T-piece 12/19/18 20:00 59 12/19/18 19:13 T-piece 12.0 40 12/19/18 19:12 96 T-piece 12.0 40 12/19/18 19:11 62 23 T-piece 12.0 40 12/19/18 19:07 109/63 12/19/18 19:00 68 22 109/63 (78) 97 12/19/18 18:04 72 22 90/61 (71) 98 12/19/18 18:00 90/61 12/19/18 17:10 58 24 157/109 (125) 97 12/19/18 16:04 63 12/19/18 16:00 70 12/19/18 16:00 T-piece 12.0 12/19/18 16:00 99.0 69 19 92/53 (66) 96 12/19/18 15:00 70 34 90/50 (63) 96 12/19/18 14:00 76 31 106/56 (73) 96 12/19/18 13:00 76 22 111/56 (74) 94 12/19/18 12:59 T-piece 12.0 70 12/19/18 12:59 94 T-piece 12.0 70 12/19/18 12:00 T-piece 12.0 12/19/18 12:00 99.6 73 33 100/55 (70) 92 12/19/18 11:40 83 12/19/18 11:34 70 12/19/18 11:26 50 12/19/18 11:00 83 37 97/55 (69) 88 12/19/18 10:27 85 28 95 T-piece 12.0 40 12/19/18 10:20 40 12/19/18 10:20 87 33 94 T-piece 12.0 40 12/19/18 10:00 75 39 140/68 (92) 92 12/19/18 08:59 75 29 106/62 (77) 91 Intake and Output 12/19/18 12/20/18 19:00 07:00 Intake Total 1694 ml 1190 ml Output Total 805 ml 1465 ml Balance 889 ml -275 ml Intake Free Water 300 ml IV Total 914 ml 110 ml Tube Feeding 720 ml 720 ml Other 60 ml 60 ml Output Urine Total 805 ml 1465 ml # Bowel Movements 1 2 Laboratory Tests 12/19/18 11:21: Arterial Blood pH 7.444, Arterial Blood Partial Pressure CO2 39.6, Arterial Blood Partial Pressure O2 51.1L, Arterial Blood HCO3 26.5H, Arterial Blood Oxygen Saturation 86.4*L, Arterial Blood Base Excess 2.4H, Bennie Test Positive 12/20/18 04:00: White Blood Count 7.7, Red Blood Count 3.57L, Hemoglobin 10.8L, Hematocrit 33.0L , Mean Corpuscular Volume 92, Mean Corpuscular Hemoglobin 30.2, Mean Corpuscular Hemoglobin Concent 32.7, Red Cell Distribution Width 13.8, Platelet Count 305, Mean Platelet Volume 6.2L, Neutrophils (%) (Auto) 60.6, Lymphocytes ( %) (Auto) 23.8, Monocytes (%) (Auto) 9.3, Eosinophils (%) (Auto) 5.1H, Basophils (%) (Auto) 1.2, Prothrombin Time 10.4, Prothromb Time International Ratio 1.0, Activated Partial Thromboplast Time 31, Sodium Level 144, Potassium Level 3.5, Chloride Level 107, Carbon Dioxide Level 31, Anion Gap 6, Blood Urea Nitrogen 5L, Creatinine 0.6, Estimat Glomerular Filtration Rate > 60, Glucose Level 95, Calcium Level 8.4L, Total Bilirubin 0.2, Aspartate Amino Transf (AST/ SGOT) 52H, Alanine Aminotransferase (ALT/SGPT) 60, Alkaline Phosphatase 80, Total Protein 6.3L, Albumin 1.8L, Globulin 4.5, Albumin/Globulin Ratio 0.4L Height (Feet): 5 Height (Inches): 5.00 Weight (Pounds): 187 General Appearance: lethargic EENT: normal ENT inspection Neck: supple Cardiovascular: normal rate Respiratory/Chest: decreased breath sounds, expiratory wheezing Abdomen: normal bowel sounds, non tender, soft Extremities: non-tender Samuel Quinn MD December 20, 2018 08:59
--- NOTE | 2018-12-20 11:48 | Diagnostic Imaging Report ---
Indication: Dyspnea Comparison: 12/17/2018 A single view chest radiograph was obtained. Findings: Vascular congestion demonstrated. Right basal atelectasis versus consolidative opacity. Right subclavian line and tracheostomy are stable. Heart size is stable. IMPRESSION: Slightly worsening pulmonary edema
[2018-12-20] MEDS: Amikacin 1,000 MG in NS 110 ML IV SCH (14:00)
[2018-12-20] MEDS ORDERED: Cefepime 2gm/D5W 110ml IV SCH ×2 (15:00)
[2018-12-20] MEDS ORDERED: NS 275ml ONE (15:55)
[2018-12-20] MEDS: Norepinephrine 4mg in D5W 250ml IV SCH (16:54)
[2018-12-20] MEDS: DOPamine 400mg/250ml 250 ML IV SCH (16:54)
--- NOTE | 2018-12-20 17:25 | Surgery Progress Note ---
Surgery Progress Note Subjective Additional Comments no acute events. comfortable. stable. exam unchanged. labs improved Objective Last 24 Hour Vital Signs Date Time Temp Pulse Resp B/P (MAP) Pulse Ox O2 Delivery O2 Flow Rate FiO2 12/20/18 16:54 112/60 12/20/18 16:54 112/60 12/20/18 16:00 12.0 40 12/20/18 16:00 T-piece 12.0 12/20/18 16:00 98.7 58 24 105/62 (76) 100 12/20/18 15:00 62 24 109/61 (77) 100 12/20/18 14:00 63 24 114/60 (78) 100 12/20/18 13:00 61 24 112/60 (77) 100 12/20/18 12:38 96 T-piece 12.0 70 12/20/18 12:38 T-piece 12.0 70 12/20/18 12:00 98.9 66 23 115/65 (82) 100 12/20/18 12:00 T-piece 12.0 12/20/18 12:00 T-piece 12.0 12/20/18 12:00 12.0 40 12/20/18 12:00 65 12/20/18 11:00 68 24 118/67 (84) 100 12/20/18 10:00 67 24 115/64 (81) 98 12/20/18 09:00 69 24 117/68 (84) 95 12/20/18 08:00 70 12/20/18 08:00 12.0 40 12/20/18 08:00 99.1 86 32 111/55 (73) 95 12/20/18 08:00 T-piece 12.0 12/20/18 07:00 75 23 119/63 (81) 100 12/20/18 06:47 71 23 T-piece 12.0 70 12/20/18 06:47 T-piece 12.0 70 12/20/18 06:47 97 T-piece 12.0 70 12/20/18 06:00 74 27 131/55 (80) 98 12/20/18 05:00 71 27 119/55 (76) 95 12/20/18 04:00 12.0 40 12/20/18 04:00 T-piece 12.0 12/20/18 04:00 67 12/20/18 04:00 98.8 69 30 133/61 (85) 96 12/20/18 03:00 69 27 124/95 (105) 100 12/20/18 02:00 64 29 129/57 (81) 92 12/20/18 01:19 95 T-piece 12.0 40 12/20/18 01:19 T-piece 12.0 40 12/20/18 01:00 64 27 121/58 (79) 96 12/20/18 00:00 98.7 76 22 125/62 (83) 97 12/20/18 00:00 T-piece 12.0 12/20/18 00:00 53 12/19/18 23:00 70 26 133/54 (80) 97 12/19/18 22:00 60 25 148/71 (96) 93 12/19/18 21:00 53 22 104/46 (65) 95 12/19/18 20:06 98.8 63 24 94/53 (67) 93 12/19/18 20:00 12.0 40 12/19/18 20:00 T-piece 12/19/18 20:00 59 12/19/18 19:13 T-piece 12.0 40 12/19/18 19:12 96 T-piece 12.0 40 12/19/18 19:11 62 23 T-piece 12.0 40 12/19/18 19:07 109/63 12/19/18 19:00 68 22 109/63 (78) 97 12/19/18 18:04 72 22 90/61 (71) 98 12/19/18 18:00 90/61 I&O Intake and Output 12/19/18 12/20/18 18:59 06:59 Intake Total 1794 ml 1190 ml Output Total 855 ml 1415 ml Balance 939 ml -225 ml Intake Free Water 300 ml IV Total 1014 ml 110 ml Tube Feeding 720 ml 720 ml Other 60 ml 60 ml Output Urine Total 855 ml 1415 ml # Bowel Movements 1 2 Dressing: dry Wound: clean Drains: other Cardiovascular: RSR Respiratory: clear Abdomen: soft, non-tender, non-distended Extremities: no tenderness, no cyanosis Laboratory Tests Test 12/20/18 04:00 White Blood Count 7.7 K/UL (4.8-10.8) Red Blood Count 3.57 M/UL (4.20-5.40) L Hemoglobin 10.8 G/DL (12.0-16.0) L Hematocrit 33.0 % (37.0-47.0) L Mean Corpuscular Volume 92 FL (80-99) Mean Corpuscular Hemoglobin 30.2 PG (27.0-31.0) Mean Corpuscular Hemoglobin Concent 32.7 G/DL (32.0-36.0) Red Cell Distribution Width 13.8 % (11.6-14.8) Platelet Count 305 K/UL (150-450) Mean Platelet Volume 6.2 FL (6.5-10.1) L Neutrophils (%) (Auto) 60.6 % (45.0-75.0) Lymphocytes (%) (Auto) 23.8 % (20.0-45.0) Monocytes (%) (Auto) 9.3 % (1.0-10.0) Eosinophils (%) (Auto) 5.1 % (0.0-3.0) H Basophils (%) (Auto) 1.2 % (0.0-2.0) Prothrombin Time 10.4 SEC (9.30-11.50) Prothromb Time International Ratio 1.0 (0.9-1.1) Activated Partial Thromboplast Time 31 SEC (23-33) Sodium Level 144 MMOL/L (136-145) Potassium Level 3.5 MMOL/L (3.5-5.1) Chloride Level 107 MMOL/L (98-107) Carbon Dioxide Level 31 MMOL/L (21-32) Anion Gap 6 mmol/L (5-15) Blood Urea Nitrogen 5 mg/dL (7-18) L Creatinine 0.6 MG/DL (0.55-1.30) Estimat Glomerular Filtration Rate > 60 mL/min (>60) Glucose Level 95 MG/DL (74-106) Calcium Level 8.4 MG/DL (8.5-10.1) L Total Bilirubin 0.2 MG/DL (0.2-1.0) Aspartate Amino Transf (AST/SGOT) 52 U/L (15-37) H Alanine Aminotransferase (ALT/SGPT) 60 U/L (12-78) Alkaline Phosphatase 80 U/L (46-116) Total Protein 6.3 G/DL (6.4-8.2) L Albumin 1.8 G/DL (3.4-5.0) L Globulin 4.5 g/dL Albumin/Globulin Ratio 0.4 (1.0-2.7) L Plan Problems: (1) Lactic acid acidosis (2) UTI (lower urinary tract infection) (3) Septic shock Assessment & Plan: diffuse rash noted on arms, trunk legs abdominal wall superficial cellulitis leukocytosis - resolved fevers - resolved micro noted No acute surgical intervention planned IV abx trend labs will follow with exam and recs thank you (4) Pneumonia (5) Hypothyroidism (6) Hypotension (7) Acute on chronic respiratory failure (8) Hypernatremia (9) Hypokalemia (10) COPD (chronic obstructive pulmonary disease) (11) Seizure disorder (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 Full thickness pressure injury sacrococcygeal area. Base of wound pale with callused borders.Non-blanchable erythema periwound with additional partial thickness shearing..(L)1cm x (W)0.6cm x (D)0.2cm. Unstageable pressure injury R buttocks.Base of wound has 80% mixed necrosis / slough,20% viable. Clockwise at 6o'clock an area of induration noted.Small amt seropurulent exudate noted. No odor noted. (L)9 cm x (W)7cm. Periwound indurated with non-blanchable erythema with additional partial thickness wounds. Full thickness pressure injury noted to L buttocks.Base of wound is viable with trace amt of biofilm,(+) maceration along borders. (L)1.4cm x (W)1cm x (D) 0.2cm. Non-blanchable erythema with shearing periwound. Shearing with multiple small partial thickness wounds ,and surrounding darker skin tone without induration noted to R and L ischial areas. Tx.Plan: Cleanse wounds Sacrococcygeal, R and L buttocks with Saline. Apply Therhaoney to each wound.Apply Triad Paste periwound. Cover with Optifoam drsgs. Apply Triad Paste to R and L ischium with each incontinence care. Apply Cavilon Skin Barrier to R and L heels. Ciover each heel with Optifoam drsg. Change every 7 days and prn. APM/JANINE Mattress overlay Reposition at least every 2hours or as tolerated. Off-load heels with pillow. (14) Abdominal wall cellulitis (15) Pressure ulcer (16) Chronic respiratory failure (17) Severe sepsis Lazaro Hodges December 20, 2018 17:25
[2018-12-20] MEDS ORDERED: Acetaminophen 650mg/20.3ml GT PRN (19:13)
[2018-12-20] MEDS ORDERED: Morphine Sulfate 2mg/ml Inj(IV/IM USE ONLY) IVP PRN (19:14)
[2018-12-20] MEDS ORDERED: Miralax 17gm pkt ORAL PRN (19:14)
[2018-12-20] MEDS: Dyna-Hex 2% Top Sol 2oz TOPIC SCH (20:34)
[2018-12-20] MEDS ORDERED: Atorvastatin 20mg tab ORAL SCH (21:00)
--- NOTE | 2018-12-20 21:30 | General Progress Note ---
Assessment/Plan Problem List: (1) Traumatic brain injury ICD Codes: S06.9X9A - Unspecified intracranial injury with loss of consciousness of unspecified duration, initial encounter SNOMED: 679523977 (2) Leaking PEG tube ICD Codes: K94.23 - Gastrostomy malfunction SNOMED: 477060211 (3) Chronic vegetative state ICD Codes: R40.3 - Persistent vegetative state SNOMED: 17230715 (4) Septic shock ICD Codes: A41.9 - Septic shock; R65.21 - Severe sepsis with septic shock SNOMED: 14945742 (5) Pneumonia ICD Codes: J18.9 - Pneumonia SNOMED: 203658034 (6) Hypothyroidism ICD Codes: E03.9 - Hypothyroidism, unspecified SNOMED: 64807515 (7) COPD (chronic obstructive pulmonary disease) ICD Codes: J44.9 - Chronic obstructive pulmonary disease, unspecified SNOMED: 90366110 (8) Seizure disorder ICD Codes: G40.909 - Seizure disorder SNOMED: 132604751 (9) Tracheostomy dependent ICD Codes: Z93.0 - Tracheostomy dependent SNOMED: 773938237 (10) Chronic respiratory failure ICD Codes: J96.10 - Chronic respiratory failure SNOMED: 23349574 Status: progressing, unchanged Assessment/Plan: trach resp insufficiency sepsis pna non verbal rt to do cpt no wheezing Subjective ROS Limited/Unobtainable: Yes Allergies: Coded Allergies: No Known Allergies (Unverified , 04/14/14) Objective Last 24 Hour Vital Signs Date Time Temp Pulse Resp B/P (MAP) Pulse Ox O2 Delivery O2 Flow Rate FiO2 12/20/18 20:00 97.7 65 22 119/67 (84) 98 12/20/18 18:00 65 22 108/68 (81) 100 12/20/18 17:00 62 24 112/65 (81) 100 12/20/18 16:54 112/60 12/20/18 16:54 112/60 12/20/18 16:00 51 12/20/18 16:00 12.0 40 12/20/18 16:00 T-piece 12.0 12/20/18 16:00 98.7 58 24 105/62 (76) 100 12/20/18 15:00 62 24 109/61 (77) 100 12/20/18 14:00 63 24 114/60 (78) 100 12/20/18 13:00 61 24 112/60 (77) 100 12/20/18 12:38 96 T-piece 12.0 70 12/20/18 12:38 T-piece 12.0 70 12/20/18 12:00 98.9 66 23 115/65 (82) 100 12/20/18 12:00 T-piece 12.0 12/20/18 12:00 T-piece 12.0 12/20/18 12:00 12.0 40 12/20/18 12:00 65 12/20/18 11:00 68 24 118/67 (84) 100 12/20/18 10:00 67 24 115/64 (81) 98 12/20/18 09:00 69 24 117/68 (84) 95 12/20/18 08:00 70 12/20/18 08:00 12.0 40 12/20/18 08:00 99.1 86 32 111/55 (73) 95 12/20/18 08:00 T-piece 12.0 12/20/18 07:00 75 23 119/63 (81) 100 12/20/18 06:47 71 23 T-piece 12.0 70 12/20/18 06:47 T-piece 12.0 70 12/20/18 06:47 97 T-piece 12.0 70 12/20/18 06:00 74 27 131/55 (80) 98 12/20/18 05:00 71 27 119/55 (76) 95 12/20/18 04:00 12.0 40 12/20/18 04:00 T-piece 12.0 12/20/18 04:00 67 12/20/18 04:00 98.8 69 30 133/61 (85) 96 12/20/18 03:00 69 27 124/95 (105) 100 12/20/18 02:00 64 29 129/57 (81) 92 12/20/18 01:19 95 T-piece 12.0 40 12/20/18 01:19 T-piece 12.0 40 12/20/18 01:00 64 27 121/58 (79) 96 12/20/18 00:00 98.7 76 22 125/62 (83) 97 12/20/18 00:00 T-piece 12.0 12/20/18 00:00 53 12/19/18 23:00 70 26 133/54 (80) 97 12/19/18 22:00 60 25 148/71 (96) 93 Intake and Output 12/19/18 12/20/18 18:59 06:59 Intake Total 1794 ml 1190 ml Output Total 855 ml 1415 ml Balance 939 ml -225 ml Intake Free Water 300 ml IV Total 1014 ml 110 ml Tube Feeding 720 ml 720 ml Other 60 ml 60 ml Output Urine Total 855 ml 1415 ml # Bowel Movements 1 2 Laboratory Tests 12/20/18 04:00: White Blood Count 7.7, Red Blood Count 3.57L, Hemoglobin 10.8L, Hematocrit 33.0L , Mean Corpuscular Volume 92, Mean Corpuscular Hemoglobin 30.2, Mean Corpuscular Hemoglobin Concent 32.7, Red Cell Distribution Width 13.8, Platelet Count 305, Mean Platelet Volume 6.2L, Neutrophils (%) (Auto) 60.6, Lymphocytes ( %) (Auto) 23.8, Monocytes (%) (Auto) 9.3, Eosinophils (%) (Auto) 5.1H, Basophils (%) (Auto) 1.2, Prothrombin Time 10.4, Prothromb Time International Ratio 1.0, Activated Partial Thromboplast Time 31, Sodium Level 144, Potassium Level 3.5, Chloride Level 107, Carbon Dioxide Level 31, Anion Gap 6, Blood Urea Nitrogen 5L, Creatinine 0.6, Estimat Glomerular Filtration Rate > 60, Glucose Level 95, Calcium Level 8.4L, Total Bilirubin 0.2, Aspartate Amino Transf (AST/ SGOT) 52H, Alanine Aminotransferase (ALT/SGPT) 60, Alkaline Phosphatase 80, Total Protein 6.3L, Albumin 1.8L, Globulin 4.5, Albumin/Globulin Ratio 0.4L Height (Feet): 5 Height (Inches): 5.00 Weight (Pounds): 187 General Appearance: confused Cardiovascular: normal rate Abdomen: soft Chon Zuluaga MD December 20, 2018 21:30
--- NOTE | 2018-12-20 23:00 | Cardiology Progress Note ---
Assessment/Plan Assessment/Plan 1. Septic shock, resolved, out of ICU, continue hydration/GT feeding. 2D echo reveals normal LVEF ~65%. 2. History of cerebrovascular accident. Consider aspirin and statin for cardiovascular protection. 3. Rash/abdominal wall cellulitis, Infectious Disease consultation. 4. History of diabetes mellitus. Consider aspirin and statin, although may not change the outcome of this patient with chronic illness. 5. Ventilatory-drive respiratory failure, status post tracheostomy tube placement. 6. Dysphagia, status post PEG placement with malfunction. Subjective Subjective Sinus rhythm at rate of 65. Objective Last 24 Hour Vital Signs Date Time Temp Pulse Resp B/P (MAP) Pulse Ox O2 Delivery O2 Flow Rate FiO2 12/20/18 20:00 T-piece 12.0 12/20/18 20:00 12.0 40 12/20/18 20:00 97.7 65 22 119/67 (84) 98 12/20/18 19:34 64 12/20/18 18:00 65 22 108/68 (81) 100 12/20/18 17:00 62 24 112/65 (81) 100 12/20/18 16:54 112/60 12/20/18 16:54 112/60 12/20/18 16:00 51 12/20/18 16:00 12.0 40 12/20/18 16:00 T-piece 12.0 12/20/18 16:00 98.7 58 24 105/62 (76) 100 12/20/18 15:00 62 24 109/61 (77) 100 12/20/18 14:00 63 24 114/60 (78) 100 12/20/18 13:00 61 24 112/60 (77) 100 12/20/18 12:38 96 T-piece 12.0 70 12/20/18 12:38 T-piece 12.0 70 12/20/18 12:00 98.9 66 23 115/65 (82) 100 12/20/18 12:00 T-piece 12.0 12/20/18 12:00 T-piece 12.0 12/20/18 12:00 12.0 40 12/20/18 12:00 65 12/20/18 11:00 68 24 118/67 (84) 100 12/20/18 10:00 67 24 115/64 (81) 98 12/20/18 09:00 69 24 117/68 (84) 95 12/20/18 08:00 70 12/20/18 08:00 12.0 40 12/20/18 08:00 99.1 86 32 111/55 (73) 95 12/20/18 08:00 T-piece 12.0 12/20/18 07:00 75 23 119/63 (81) 100 12/20/18 06:47 71 23 T-piece 12.0 70 12/20/18 06:47 T-piece 12.0 70 12/20/18 06:47 97 T-piece 12.0 70 12/20/18 06:00 74 27 131/55 (80) 98 12/20/18 05:00 71 27 119/55 (76) 95 12/20/18 04:00 12.0 40 12/20/18 04:00 T-piece 12.0 12/20/18 04:00 67 12/20/18 04:00 98.8 69 30 133/61 (85) 96 12/20/18 03:00 69 27 124/95 (105) 100 12/20/18 02:00 64 29 129/57 (81) 92 12/20/18 01:19 95 T-piece 12.0 40 12/20/18 01:19 T-piece 12.0 40 12/20/18 01:00 64 27 121/58 (79) 96 12/20/18 00:00 98.7 76 22 125/62 (83) 97 12/20/18 00:00 T-piece 12.0 12/20/18 00:00 53 12/19/18 23:00 70 26 133/54 (80) 97 Intake and Output 12/19/18 12/20/18 19:00 07:00 Intake Total 1694 ml 1190 ml Output Total 805 ml 1465 ml Balance 889 ml -275 ml Intake Free Water 300 ml IV Total 914 ml 110 ml Tube Feeding 720 ml 720 ml Other 60 ml 60 ml Output Urine Total 805 ml 1465 ml # Bowel Movements 1 2 Laboratory Tests Test 12/20/18 04:00 White Blood Count 7.7 K/UL (4.8-10.8) Red Blood Count 3.57 M/UL (4.20-5.40) L Hemoglobin 10.8 G/DL (12.0-16.0) L Hematocrit 33.0 % (37.0-47.0) L Mean Corpuscular Volume 92 FL (80-99) Mean Corpuscular Hemoglobin 30.2 PG (27.0-31.0) Mean Corpuscular Hemoglobin Concent 32.7 G/DL (32.0-36.0) Red Cell Distribution Width 13.8 % (11.6-14.8) Platelet Count 305 K/UL (150-450) Mean Platelet Volume 6.2 FL (6.5-10.1) L Neutrophils (%) (Auto) 60.6 % (45.0-75.0) Lymphocytes (%) (Auto) 23.8 % (20.0-45.0) Monocytes (%) (Auto) 9.3 % (1.0-10.0) Eosinophils (%) (Auto) 5.1 % (0.0-3.0) H Basophils (%) (Auto) 1.2 % (0.0-2.0) Prothrombin Time 10.4 SEC (9.30-11.50) Prothromb Time International Ratio 1.0 (0.9-1.1) Activated Partial Thromboplast Time 31 SEC (23-33) Sodium Level 144 MMOL/L (136-145) Potassium Level 3.5 MMOL/L (3.5-5.1) Chloride Level 107 MMOL/L (98-107) Carbon Dioxide Level 31 MMOL/L (21-32) Anion Gap 6 mmol/L (5-15) Blood Urea Nitrogen 5 mg/dL (7-18) L Creatinine 0.6 MG/DL (0.55-1.30) Estimat Glomerular Filtration Rate > 60 mL/min (>60) Glucose Level 95 MG/DL (74-106) Calcium Level 8.4 MG/DL (8.5-10.1) L Total Bilirubin 0.2 MG/DL (0.2-1.0) Aspartate Amino Transf (AST/SGOT) 52 U/L (15-37) H Alanine Aminotransferase (ALT/SGPT) 60 U/L (12-78) Alkaline Phosphatase 80 U/L (46-116) Total Protein 6.3 G/DL (6.4-8.2) L Albumin 1.8 G/DL (3.4-5.0) L Globulin 4.5 g/dL Albumin/Globulin Ratio 0.4 (1.0-2.7) L Objective SKIN: Maculopapular rash throughout the stomach, area of posterior trunk and anterior aspect of both thighs and down to the legs. HEENT: Atraumatic and normocephalic. Anicteric. Pupils are equal, round, and reactive to light and accommodation. NECK: JVP cannot be assessed due to obesity and short neck and presence of a tracheostomy tube. CARDIOVASCULAR: Normal S1, S2. Regular rate and rhythm. No murmurs, gallops, or rubs. LUNGS: Rhonchi bilaterally. ABDOMEN: Obese. Presence of PEG. Erythematous skin of abdominal wall. EXTREMITIES: No evidence of edema, clubbing, or cyanosis. Vaughn Sahu MD December 20, 2018 23:00
[2018-12-21] VITALS: BP 120/68
[2018-12-21] MEDS ORDERED: HYDROcodone/Acetamin 10/325 tab ORAL PRN ×2 (01:30)
[2018-12-21 03:50] VITALS: BP 112/69
[2018-12-21] MEDS: Cefepime HCl 2 GM in D5W 110 ML IV SCH (05:23)
[2018-12-21 08:00] VITALS: BP 137/94
[2018-12-21] MEDS ORDERED: Pantoprazole Inj IVP SCH (09:00)
[2018-12-21] MEDS ORDERED: Aspirin Baby 81mg GT SCH (09:00)
[2018-12-21] MEDS: Heparin 5000 units/ml inj SUBQ SCH ×2 (09:02→20:33)
--- NOTE | 2018-12-21 10:26 | Pulmonolgy Critical Care Note ---
Critical Care - Asmt/Plan Problems: (1) Septic shock (2) Acute on chronic respiratory failure (3) Chronic vegetative state (4) COPD (chronic obstructive pulmonary disease) (5) Seizure disorder (6) Chronic respiratory failure (7) Decubital ulcer Respiratory: monitor respiratory rate, adjust FIO2, CXR Cardiac: continue to monitor HR/BP Renal: F/U I&O, keep IV fluid Infectious Disease: check cultures Gastrointestinal: continue feedings/current rate Endocrine: monitor blood sugar, check TSH, check HgA1C Neurologic: PRN Ativan Affect: PRN ativan Prophylaxis: Protonix, Heparin Notes Reviewed: cardio Discussed with: nurses, consultants, case folderconference planning manager - Objective Last 24 Hour Vital Signs Date Time Temp Pulse Resp B/P (MAP) Pulse Ox O2 Delivery O2 Flow Rate FiO2 12/21/18 08:01 T-piece 12.0 40 12/21/18 08:01 95 T-piece 12.0 40 12/21/18 08:00 12.0 40 12/21/18 08:00 77 0 T-piece 12.0 40 12/21/18 08:00 T-piece 12.0 12/21/18 08:00 98.0 86 24 137/94 (108) 95 12/21/18 07:29 89 12/21/18 04:00 12.0 40 12/21/18 03:59 T-piece 12.0 12/21/18 03:50 97.7 77 20 112/69 (83) 99 12/21/18 03:33 64 12/21/18 01:10 T-piece 12.0 40 12/21/18 01:10 96 T-piece 12.0 40 12/21/18 00:00 97.7 66 20 120/68 (85) 97 12/21/18 00:00 T-piece 12.0 12/20/18 23:21 75 12/20/18 20:00 T-piece 12.0 12/20/18 20:00 12.0 40 12/20/18 20:00 97.7 65 22 119/67 (84) 98 12/20/18 19:34 64 12/20/18 19:00 70 24 T-piece 12.0 40 12/20/18 19:00 T-piece 12.0 40 12/20/18 19:00 95 T-piece 12.0 40 12/20/18 18:00 65 22 108/68 (81) 100 12/20/18 17:00 62 24 112/65 (81) 100 12/20/18 16:54 112/60 12/20/18 16:54 112/60 12/20/18 16:00 51 12/20/18 16:00 12.0 40 12/20/18 16:00 T-piece 12.0 12/20/18 16:00 98.7 58 24 105/62 (76) 100 12/20/18 15:00 62 24 109/61 (77) 100 12/20/18 14:00 63 24 114/60 (78) 100 12/20/18 13:00 61 24 112/60 (77) 100 12/20/18 12:38 96 T-piece 12.0 70 12/20/18 12:38 T-piece 12.0 70 12/20/18 12:00 98.9 66 23 115/65 (82) 100 12/20/18 12:00 T-piece 12.0 12/20/18 12:00 T-piece 12.0 12/20/18 12:00 12.0 40 12/20/18 12:00 65 12/20/18 11:00 68 24 118/67 (84) 100 Status: sedated Condition: critical HEENT: atraumatic Neck: full ROM Heart: HR/BP stable, HR/BP unstable Abdomen: soft, non-tender, feeding tube Extremities: no C/C/E Critical Care - Subjective ROS Limited/Unobtainable: Yes Condition: critical EKG Rhythm: Sinus Rhythm FI02: 40 Sputum Amount: Moderate Tube Feeding Amount: 60 I&O: Intake and Output 12/20/18 12/21/18 19:00 07:00 Intake Total 700 ml 1110 ml Output Total 850 ml 1500 ml Balance -150 ml -390 ml Intake Free Water 100 ml 230 ml IV Total 220 ml Tube Feeding 600 ml 660 ml Output Urine Total 850 ml 1500 ml # Bowel Movements 1 Leigh Ch MD December 21, 2018 10:26
--- NOTE | 2018-12-21 11:01 | GI Progress Note ---
Assessment/Plan Problems: (1) Abdominal wall cellulitis ICD Codes: L03.311 - Cellulitis of abdominal wall SNOMED: 74752157 (2) Leaking PEG tube ICD Codes: K94.23 - Gastrostomy malfunction SNOMED: 790776824 (3) Tracheostomy dependent ICD Codes: Z93.0 - Tracheostomy dependent SNOMED: 617472779 Status: stable Status Narrative Discussed with Dr. Quinn Assessment/Plan GTF GT care abx respiratory care fu labs The patient was seen and examined at bedside and all new and available data was reviewed in the patients chart. I agree with the above findings, impression and plan. (Patient seen earlier today. Signature stamp does not reflect patient encounter time.). - Samuel Quinn MD Subjective Subjective Limited Objective Last 24 Hour Vital Signs Date Time Temp Pulse Resp B/P (MAP) Pulse Ox O2 Delivery O2 Flow Rate FiO2 12/21/18 08:01 T-piece 12.0 40 12/21/18 08:01 95 T-piece 12.0 40 12/21/18 08:00 12.0 40 12/21/18 08:00 77 0 T-piece 12.0 40 12/21/18 08:00 T-piece 12.0 12/21/18 08:00 98.0 86 24 137/94 (108) 95 12/21/18 07:29 89 12/21/18 04:00 12.0 40 12/21/18 03:59 T-piece 12.0 12/21/18 03:50 97.7 77 20 112/69 (83) 99 12/21/18 03:33 64 12/21/18 01:10 T-piece 12.0 40 12/21/18 01:10 96 T-piece 12.0 40 12/21/18 00:00 97.7 66 20 120/68 (85) 97 12/21/18 00:00 T-piece 12.0 12/20/18 23:21 75 12/20/18 20:00 T-piece 12.0 12/20/18 20:00 12.0 40 12/20/18 20:00 97.7 65 22 119/67 (84) 98 12/20/18 19:34 64 12/20/18 19:00 70 24 T-piece 12.0 40 12/20/18 19:00 T-piece 12.0 40 12/20/18 19:00 95 T-piece 12.0 40 12/20/18 18:00 65 22 108/68 (81) 100 12/20/18 17:00 62 24 112/65 (81) 100 12/20/18 16:54 112/60 12/20/18 16:54 112/60 12/20/18 16:00 51 12/20/18 16:00 12.0 40 12/20/18 16:00 T-piece 12.0 12/20/18 16:00 98.7 58 24 105/62 (76) 100 12/20/18 15:00 62 24 109/61 (77) 100 12/20/18 14:00 63 24 114/60 (78) 100 12/20/18 13:00 61 24 112/60 (77) 100 12/20/18 12:38 96 T-piece 12.0 70 12/20/18 12:38 T-piece 12.0 70 12/20/18 12:00 98.9 66 23 115/65 (82) 100 12/20/18 12:00 T-piece 12.0 12/20/18 12:00 T-piece 12.0 12/20/18 12:00 12.0 40 12/20/18 12:00 65 Intake and Output 12/20/18 12/21/18 19:00 07:00 Intake Total 700 ml 1110 ml Output Total 850 ml 1500 ml Balance -150 ml -390 ml Intake Free Water 100 ml 230 ml IV Total 220 ml Tube Feeding 600 ml 660 ml Output Urine Total 850 ml 1500 ml # Bowel Movements 1 Height (Feet): 5 Height (Inches): 5.00 Weight (Pounds): 186 General Appearance: WD/WN, no apparent distress, alert Cardiovascular: normal rate Respiratory/Chest: normal breath sounds, no respiratory distress, other - Tracheostomy Abdominal Exam: normal bowel sounds, non tender, soft, GT site - Clean dry and intact Extremities: non-tender Alyson Hull NP December 21, 2018 11:01
[2018-12-21 12:00] VITALS: BP 117/71
--- NOTE | 2018-12-21 12:58 | Infectious Diseases Prog Note ---
Assessment/Plan Assessment/Plan Abx: IV Vancomycin 12/15- Cefepime 12/15- Amikacin 12/16- Flagyl x 1 12/15 Assessment: Septic shock -likely 2ry to PNA- now off pressors -CXR: Mild basal atelectasis. -u/a no pyuria, nit eg, leuk +1; ucx neg -CT abd/p w/: Patchy posterior basilar consolidation. Consider pneumonia. Small bilateral pleural effusions noted. Artifact limiting evaluation of the upper abdomen. Possible tiny nonobstructive stone in the right kidney. Gastrostomy in good position. Question of a tiny gallstone. Heterogeneous uterus nonspecific. Calvarial bone flap in the right lower quadrant of the abdomen. -influenza sc neg -sp cx GNB Psa (ALVAREZ s) -legionella ag urine neg Gram positive bacteremia- likely contaminant -Bcx 08/07 CONS; 12/17 Bcx NTD Low grade fever; sp Leukocytosis; SP Irregular/blanching erythematous rash (LE, lower abdomen)- ?erypsipelas vs 1ry dermatological rash (not infectious) vegetative state anoxic encephalopathy COPD DM2 seizure disorder anemia hypothyroidisim CVA chronic vent PEG senior care resident Plan: -switch Cefepime #02/10 to PO LEvaquin for pNA -12/20 SP Amikacin #5 -12/19 SP IV Vancomycin #5 -f/u cx (Bl, sp) -Monitor CBC/CMP, temperatures -PEG/Trach/ICU care -wound care per surgical team Thank you for this consultation. Will continue to follow along with you. Discussed with RN. Subjective Allergies: Coded Allergies: No Known Allergies (Unverified , 04/14/14) Subjective afebrile no leukocytosis resolved off ICU, now on RANJIT discharge planning Bcx NTD Objective Vital Signs Last 24 Hour Vital Signs Date Time Temp Pulse Resp B/P (MAP) Pulse Ox O2 Delivery O2 Flow Rate FiO2 12/21/18 12:00 99.6 69 25 117/71 (86) 93 12/21/18 12:00 T-piece 12.0 12/21/18 12:00 12.0 40 12/21/18 08:01 T-piece 12.0 40 12/21/18 08:01 95 T-piece 12.0 40 12/21/18 08:00 12.0 40 12/21/18 08:00 77 0 T-piece 12.0 40 12/21/18 08:00 T-piece 12.0 12/21/18 08:00 98.0 86 24 137/94 (108) 95 12/21/18 07:29 89 12/21/18 04:00 12.0 40 12/21/18 03:59 T-piece 12.0 12/21/18 03:50 97.7 77 20 112/69 (83) 99 12/21/18 03:33 64 12/21/18 01:10 T-piece 12.0 40 12/21/18 01:10 96 T-piece 12.0 40 12/21/18 00:00 97.7 66 20 120/68 (85) 97 12/21/18 00:00 T-piece 12.0 12/20/18 23:21 75 12/20/18 20:00 T-piece 12.0 12/20/18 20:00 12.0 40 12/20/18 20:00 97.7 65 22 119/67 (84) 98 12/20/18 19:34 64 12/20/18 19:00 70 24 T-piece 12.0 40 12/20/18 19:00 T-piece 12.0 40 12/20/18 19:00 95 T-piece 12.0 40 12/20/18 18:00 65 22 108/68 (81) 100 12/20/18 17:00 62 24 112/65 (81) 100 12/20/18 16:54 112/60 12/20/18 16:54 112/60 12/20/18 16:00 51 12/20/18 16:00 12.0 40 12/20/18 16:00 T-piece 12.0 12/20/18 16:00 98.7 58 24 105/62 (76) 100 12/20/18 15:00 62 24 109/61 (77) 100 12/20/18 14:00 63 24 114/60 (78) 100 12/20/18 13:00 61 24 112/60 (77) 100 Height (Feet): 5 Height (Inches): 5.00 Weight (Pounds): 186 Objective General Appearance: no apparent distress Lines, tubes and drains: peripheral HEENT: normocephalic, mucous membranes moist Neck: normal inspection Respiratory/Chest: no respiratory distress, no accessory muscle use, decreased breath sounds, other Cardiovascular/Chest: tachycardia, other Abdomen: no organomegaly, no mass, hypoactive bowel sounds, other - cellulitis Extremities: normal inspection Skin Exam: warm/dry, erythematous patches, blanchin in a irregular fashion on b /l Legs, thighs and lower abdomen Current Medications Medications (Trade) Dose Ordered Sig/Neo Route PRN Reason Start Time Stop Time Status Last Admin Dose Admin Acetaminophen (Tylenol) 650 mg Q4H PRN GT Mild Pain/Temp > 100.5 12/20/18 19:13 01/19/19 19:12 Cefepime HCl 2 gm/ Dextrose 110 ml @ 220 mls/hr Q8HR IV 12/20/18 22:00 12/27/18 14:59 12/21/18 05:23 Chlorhexidine Gluconate (Cathleen-Hex 2%) 1 applic DAILY@2000 TOPIC 12/20/18 20:00 01/14/19 19:59 12/20/18 20:34 Heparin Sodium (Porcine) (Heparin 5000 units/ml) 5,000 units EVERY 12 HOURS SUBQ 12/20/18 21:00 01/14/19 20:59 12/21/18 09:02 Levothyroxine Sodium (Synthroid) 100 mcg DAILY@0630 ORAL 12/21/18 06:30 01/16/19 06:29 12/21/18 05:39 Midodrine (Pro-Amatine) 5 mg Q12HR ORAL 12/20/18 21:00 01/16/19 20:59 12/21/18 08:48 Misti De Santiago M.D. December 21, 2018 12:58
--- NOTE | 2018-12-21 13:20 | Surgery Progress Note ---
Surgery Progress Note Subjective Symptoms: improved Additional Comments comfortable appearing. no acute events. exam stable. Objective Last 24 Hour Vital Signs Date Time Temp Pulse Resp B/P (MAP) Pulse Ox O2 Delivery O2 Flow Rate FiO2 12/21/18 13:16 T-piece 12.0 40 12/21/18 13:16 96 T-piece 12.0 40 12/21/18 12:00 99.6 69 25 117/71 (86) 93 12/21/18 12:00 T-piece 12.0 12/21/18 12:00 12.0 40 12/21/18 08:01 T-piece 12.0 40 12/21/18 08:01 95 T-piece 12.0 40 12/21/18 08:00 12.0 40 12/21/18 08:00 77 0 T-piece 12.0 40 12/21/18 08:00 T-piece 12.0 12/21/18 08:00 98.0 86 24 137/94 (108) 95 12/21/18 07:29 89 12/21/18 04:00 12.0 40 12/21/18 03:59 T-piece 12.0 12/21/18 03:50 97.7 77 20 112/69 (83) 99 12/21/18 03:33 64 12/21/18 01:10 T-piece 12.0 40 12/21/18 01:10 96 T-piece 12.0 40 12/21/18 00:00 97.7 66 20 120/68 (85) 97 12/21/18 00:00 T-piece 12.0 12/20/18 23:21 75 12/20/18 20:00 T-piece 12.0 12/20/18 20:00 12.0 40 12/20/18 20:00 97.7 65 22 119/67 (84) 98 12/20/18 19:34 64 12/20/18 19:00 70 24 T-piece 12.0 40 12/20/18 19:00 T-piece 12.0 40 12/20/18 19:00 95 T-piece 12.0 40 12/20/18 18:00 65 22 108/68 (81) 100 12/20/18 17:00 62 24 112/65 (81) 100 12/20/18 16:54 112/60 12/20/18 16:54 112/60 12/20/18 16:00 51 12/20/18 16:00 12.0 40 12/20/18 16:00 T-piece 12.0 12/20/18 16:00 98.7 58 24 105/62 (76) 100 12/20/18 15:00 62 24 109/61 (77) 100 12/20/18 14:00 63 24 114/60 (78) 100 I&O Intake and Output 12/20/18 12/21/18 19:00 07:00 Intake Total 700 ml 1110 ml Output Total 850 ml 1500 ml Balance -150 ml -390 ml Intake Free Water 100 ml 230 ml IV Total 220 ml Tube Feeding 600 ml 660 ml Output Urine Total 850 ml 1500 ml # Bowel Movements 1 Dressing: dry Wound: clean Drains: other Cardiovascular: RSR Respiratory: clear, decreased breath sounds Abdomen: soft, present bowel sounds, non-distended Extremities: no tenderness, no cyanosis Plan Problems: (1) Lactic acid acidosis (2) UTI (lower urinary tract infection) (3) Septic shock Assessment & Plan: diffuse rash noted on arms, trunk legs abdominal wall superficial cellulitis leukocytosis - resolved fevers - resolved micro noted No acute surgical intervention planned IV abx trend labs will follow with exam and recs thank you (4) Pneumonia (5) Hypothyroidism (6) Hypotension (7) Acute on chronic respiratory failure (8) Hypernatremia (9) Hypokalemia (10) COPD (chronic obstructive pulmonary disease) (11) Seizure disorder (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 Full thickness pressure injury sacrococcygeal area. Base of wound pale with callused borders.Non-blanchable erythema periwound with additional partial thickness shearing..(L)1cm x (W)0.6cm x (D)0.2cm. Unstageable pressure injury R buttocks.Base of wound has 80% mixed necrosis / slough,20% viable. Clockwise at 6o'clock an area of induration noted.Small amt seropurulent exudate noted. No odor noted. (L)9 cm x (W)7cm. Periwound indurated with non-blanchable erythema with additional partial thickness wounds. Full thickness pressure injury noted to L buttocks.Base of wound is viable with trace amt of biofilm,(+) maceration along borders. (L)1.4cm x (W)1cm x (D) 0.2cm. Non-blanchable erythema with shearing periwound. Shearing with multiple small partial thickness wounds ,and surrounding darker skin tone without induration noted to R and L ischial areas. Tx.Plan: Cleanse wounds Sacrococcygeal, R and L buttocks with Saline. Apply Therhaoney to each wound.Apply Triad Paste periwound. Cover with Optifoam drsgs. Apply Triad Paste to R and L ischium with each incontinence care. Apply Cavilon Skin Barrier to R and L heels. Ciover each heel with Optifoam drsg. Change every 7 days and prn. APM/JANINE Mattress overlay Reposition at least every 2hours or as tolerated. Off-load heels with pillow. (14) Abdominal wall cellulitis (15) Pressure ulcer (16) Chronic respiratory failure (17) Severe sepsis Lazaro Hodges December 21, 2018 13:20
--- NOTE | 2018-12-21 13:31 | General Progress Note ---
Assessment/Plan Problem List: (1) UTI (lower urinary tract infection) ICD Codes: N39.0 - UTI (lower urinary tract infection) SNOMED: 7149366 (2) Septic shock ICD Codes: A41.9 - Septic shock; R65.21 - Severe sepsis with septic shock SNOMED: 91957302 (3) Hypotension ICD Codes: I95.9 - Hypotension SNOMED: 01910070 (4) COPD (chronic obstructive pulmonary disease) ICD Codes: J44.9 - Chronic obstructive pulmonary disease, unspecified SNOMED: 35072102 (5) Tracheostomy dependent ICD Codes: Z93.0 - Tracheostomy dependent SNOMED: 778631815 (6) Chronic respiratory failure ICD Codes: J96.10 - Chronic respiratory failure SNOMED: 61166759 (7) Abdominal wall cellulitis ICD Codes: L03.311 - Cellulitis of abdominal wall SNOMED: 31357278 (8) Seizure disorder ICD Codes: G40.909 - Seizure disorder SNOMED: 396541692 Status: stable, progressing Assessment/Plan: vent abx wound care bp bs seizure control cbc bmp in am dc plan Subjective Constitutional: Reports: weakness Allergies: Coded Allergies: No Known Allergies (Unverified , 04/14/14) All Systems: reviewed and negative except above Subjective trach vent altered Objective Last 24 Hour Vital Signs Date Time Temp Pulse Resp B/P (MAP) Pulse Ox O2 Delivery O2 Flow Rate FiO2 12/21/18 13:16 T-piece 12.0 40 12/21/18 13:16 96 T-piece 12.0 40 12/21/18 12:00 99.6 69 25 117/71 (86) 93 12/21/18 12:00 T-piece 12.0 12/21/18 12:00 12.0 40 12/21/18 08:01 T-piece 12.0 40 12/21/18 08:01 95 T-piece 12.0 40 12/21/18 08:00 12.0 40 12/21/18 08:00 77 0 T-piece 12.0 40 12/21/18 08:00 T-piece 12.0 12/21/18 08:00 98.0 86 24 137/94 (108) 95 12/21/18 07:29 89 12/21/18 04:00 12.0 40 5/20/19 03:59 T-piece 12.0 12/21/18 03:50 97.7 77 20 112/69 (83) 99 12/21/18 03:33 64 12/21/18 01:10 T-piece 12.0 40 12/21/18 01:10 96 T-piece 12.0 40 12/21/18 00:00 97.7 66 20 120/68 (85) 97 12/21/18 00:00 T-piece 12.0 12/20/18 23:21 75 12/20/18 20:00 T-piece 12.0 12/20/18 20:00 12.0 40 12/20/18 20:00 97.7 65 22 119/67 (84) 98 12/20/18 19:34 64 12/20/18 19:00 70 24 T-piece 12.0 40 12/20/18 19:00 T-piece 12.0 40 12/20/18 19:00 95 T-piece 12.0 40 12/20/18 18:00 65 22 108/68 (81) 100 12/20/18 17:00 62 24 112/65 (81) 100 12/20/18 16:54 112/60 12/20/18 16:54 112/60 12/20/18 16:00 51 12/20/18 16:00 12.0 40 12/20/18 16:00 T-piece 12.0 12/20/18 16:00 98.7 58 24 105/62 (76) 100 12/20/18 15:00 62 24 109/61 (77) 100 12/20/18 14:00 63 24 114/60 (78) 100 Intake and Output 12/20/18 12/21/18 19:00 07:00 Intake Total 700 ml 1110 ml Output Total 850 ml 1500 ml Balance -150 ml -390 ml Intake Free Water 100 ml 230 ml IV Total 220 ml Tube Feeding 600 ml 660 ml Output Urine Total 850 ml 1500 ml # Bowel Movements 1 Height (Feet): 5 Height (Inches): 5.00 Weight (Pounds): 186 General Appearance: lethargic EENT: normal ENT inspection Neck: normal alignment Cardiovascular: normal peripheral pulses, normal rate, regular rhythm Respiratory/Chest: chest wall non-tender, lungs clear, normal breath sounds Abdomen: normal bowel sounds, non tender, soft Extremities: normal inspection Edema: no edema noted Arm (L), no edema noted Arm (R), no edema noted Leg (L), no edema noted Leg (R), no edema noted Pedal (L), no edema noted Pedal (R), no edema noted Generalized Neurologic: motor weakness Skin: normal pigmentation, warm/dry Seb Mike DO December 21, 2018 13:31
[2018-12-21] MEDS ORDERED: Levofloxacin 750mg tab ORAL SCH (14:00)
[2018-12-21 16:00] VITALS: BP 124/77
[2018-12-21] MEDS ORDERED: DOPamine 400mg/250ml 250 ML IV SCH (18:00)
[2018-12-21 19:57] VITALS: BP 98/58
[2018-12-21] MEDS: Dyna-Hex 2% Top Sol 2oz TOPIC SCH (20:31)
--- NOTE | 2018-12-21 23:19 | Cardiology Progress Note ---
Assessment/Plan Assessment/Plan 1. Septic shock, off dopamine gtt, echo shows normal LVEF. Consider aspirin and statin for cardiovascular protection. 2. Rash/abdominal wall cellulitis, continue IV ABx per infectious Disease specialist. 3. History of diabetes mellitus. Consider aspirin and statin, although may not change the outcome of this patient with chronic illness. 4. Ventilatory-drive respiratory failure, status post tracheostomy tube placement. 5. Dysphagia, status post PEG placement with malfunction. Subjective Subjective Sinus rhythm at the rate of 64. Objective Last 24 Hour Vital Signs Date Time Temp Pulse Resp B/P (MAP) Pulse Ox O2 Delivery O2 Flow Rate FiO2 12/21/18 20:00 12.0 40 12/21/18 20:00 T-piece 12.0 12/21/18 19:57 98.1 64 16 98/58 (71) 93 12/21/18 19:40 T-piece 12.0 40 12/21/18 19:39 94 T-piece 12.0 40 12/21/18 19:38 72 24 95 T-piece 12.0 40 12/21/18 19:26 72 12/21/18 16:00 T-piece 12.0 12/21/18 16:00 12.0 40 12/21/18 16:00 97.5 68 26 124/77 (93) 94 12/21/18 15:24 60 12/21/18 13:16 T-piece 12.0 40 12/21/18 13:16 96 T-piece 12.0 40 12/21/18 12:00 99.6 69 25 117/71 (86) 93 12/21/18 12:00 T-piece 12.0 12/21/18 12:00 12.0 40 12/21/18 11:34 71 12/21/18 08:01 T-piece 12.0 40 12/21/18 08:01 95 T-piece 12.0 40 12/21/18 08:00 12.0 40 12/21/18 08:00 77 0 T-piece 12.0 40 12/21/18 08:00 T-piece 12.0 12/21/18 08:00 98.0 86 24 137/94 (108) 95 12/21/18 07:29 89 12/21/18 04:00 12.0 40 12/21/18 03:59 T-piece 12.0 12/21/18 03:50 97.7 77 20 112/69 (83) 99 12/21/18 03:33 64 12/21/18 01:10 T-piece 12.0 40 12/21/18 01:10 96 T-piece 12.0 40 12/21/18 00:00 97.7 66 20 120/68 (85) 97 12/21/18 00:00 T-piece 12.0 12/20/18 23:21 75 Intake and Output 12/20/18 12/21/18 18:59 06:59 Intake Total 700 ml 1080 ml Output Total 950 ml 1500 ml Balance -250 ml -420 ml Intake Free Water 100 ml 200 ml IV Total 220 ml Tube Feeding 600 ml 660 ml Output Urine Total 950 ml 1500 ml # Bowel Movements 1 2D Echo: LVEf 65%, RVSP 17 mmHg, Normal LVD Fxn, RAP 10 mmHg, Mild MR. Objective SKIN: Maculopapular rash throughout the stomach, area of posterior trunk and anterior aspect of both thighs and down to the legs. HEENT: Atraumatic and normocephalic. Anicteric. Pupils are equal, round, and reactive to light and accommodation. NECK: JVP cannot be assessed due to obesity and short neck and presence of a tracheostomy tube. CARDIOVASCULAR: Normal S1, S2. Regular rate and rhythm. No murmurs, gallops, or rubs. LUNGS: Rhonchi bilaterally. ABDOMEN: Obese. Presence of PEG. Erythematous skin of abdominal wall. EXTREMITIES: No evidence of edema, clubbing, or cyanosis. Vaughn Sahu MD December 21, 2018 23:19
[2018-12-22] VITALS: BP 120/75
[2018-12-22 04:00] VITALS: BP 125/74
[2018-12-22 05:49] LABS: BASOPHILS % (AUTO) 0.6 % (0.0-2.0); EOSINOPHILS % (AUTO) 3.2 % (0.0-3.0); HEMATOCRIT 38.8 % (37.0-47.0); HEMOGLOBIN 12.9 G/DL (12.0-16.0); LYMPHOCYTES % (AUTO) 23.6 % (20.0-45.0); MEAN CORPUSCULAR VOLUME 91 FL (80-99); MONOCYTES % (AUTO) 7.8 % (1.0-10.0); NEUTROPHILS % (AUTO) 64.8 % (45.0-75.0); PLATELET COUNT 357 K/UL (150-450); RED BLOOD COUNT 4.25 M/UL (4.20-5.40); WHITE BLOOD COUNT 8.6 K/UL (4.8-10.8)
[2018-12-22 05:57] LABS: ALANINE AMINOTRANSFERASE 42 U/L (12-78); ALBUMIN 2.3 G/DL (3.4-5.0); ALBUMIN/GLOBULIN RATIO 0.4 (1.0-2.7); ALKALINE PHOSPHATASE 83 U/L (46-116); ANION GAP 4 mmol/L (5-15); ASPARTATE AMINO TRANSFERASE 31 U/L (15-37); BILIRUBIN,TOTAL 0.1 MG/DL (0.2-1.0); BLOOD UREA NITROGEN 8 mg/dL (7-18); CALCIUM 9.5 MG/DL (8.5-10.1); CARBON DIOXIDE 34 MMOL/L (21-32); CHLORIDE 104 MMOL/L (98-107); CREATININE 0.6 MG/DL (0.55-1.30); POTASSIUM 3.9 MMOL/L (3.5-5.1); SODIUM 142 MMOL/L (136-145)
[2018-12-22 08:00] VITALS: BP 128/81
[2018-12-22] MEDS: Heparin 5000 units/ml inj SUBQ SCH (08:55)
[2018-12-22] MEDS ORDERED: Levofloxacin 750mg tab ORAL SCH (09:00)
--- NOTE | 2018-12-22 09:35 | GI Progress Note ---
Assessment/Plan Problems: (1) Abdominal wall cellulitis ICD Codes: L03.311 - Cellulitis of abdominal wall SNOMED: 89300327 (2) Leaking PEG tube ICD Codes: K94.23 - Gastrostomy malfunction SNOMED: 965237394 (3) Tracheostomy dependent ICD Codes: Z93.0 - Tracheostomy dependent SNOMED: 716522575 Status: stable Status Narrative Discussed with Dr. Quinn Assessment/Plan GTF GT care abx reglan prn for high residuals respiratory care fu labs The patient was seen and examined at bedside and all new and available data was reviewed in the patients chart. I agree with the above findings, impression and plan. (Patient seen earlier today. Signature stamp does not reflect patient encounter time.). - Samuel Quinn MD Subjective Subjective Limited Objective Last 24 Hour Vital Signs Date Time Temp Pulse Resp B/P (MAP) Pulse Ox O2 Delivery O2 Flow Rate FiO2 12/22/18 08:00 T-piece 12.0 12/22/18 08:00 12.0 40 12/22/18 08:00 98.1 70 29 128/81 (97) 95 12/22/18 07:53 72 12/22/18 07:00 T-piece 12.0 40 12/22/18 07:00 81 22 94 T-piece 12.0 40 12/22/18 07:00 94 T-piece 12.0 40 12/22/18 04:00 T-piece 12.0 12/22/18 04:00 12.0 40 12/22/18 04:00 98.1 66 28 125/74 (91) 97 12/22/18 03:23 75 12/22/18 01:00 T-piece 12.0 40 12/22/18 01:00 95 T-piece 12.0 40 12/22/18 00:00 T-piece 12.0 12/22/18 00:00 12.0 40 12/22/18 00:00 98.1 73 24 120/75 (90) 95 12/22/18 00:00 58 12/21/18 20:00 12.0 40 12/21/18 20:00 T-piece 12.0 12/21/18 19:57 98.1 64 16 98/58 (71) 93 12/21/18 19:40 T-piece 12.0 40 12/21/18 19:39 94 T-piece 12.0 40 12/21/18 19:38 72 24 95 T-piece 12.0 40 12/21/18 19:26 72 12/21/18 16:00 T-piece 12.0 12/21/18 16:00 12.0 40 12/21/18 16:00 97.5 68 26 124/77 (93) 94 12/21/18 15:24 60 12/21/18 13:16 T-piece 12.0 40 12/21/18 13:16 96 T-piece 12.0 40 12/21/18 12:00 99.6 69 25 117/71 (86) 93 12/21/18 12:00 T-piece 12.0 12/21/18 12:00 12.0 40 12/21/18 11:34 71 Intake and Output 12/21/18 12/22/18 19:00 07:00 Intake Total 870 ml 735 ml Output Total 1400 ml 1200 ml Balance -530 ml -465 ml Intake Free Water 150 ml 75 ml Tube Feeding 720 ml 660 ml Output Urine Total 1400 ml 1200 ml # Bowel Movements 1 2 Laboratory Tests Test 12/22/18 04:39 White Blood Count 8.6 K/UL (4.8-10.8) Red Blood Count 4.25 M/UL (4.20-5.40) Hemoglobin 12.9 G/DL (12.0-16.0) Hematocrit 38.8 % (37.0-47.0) Mean Corpuscular Volume 91 FL (80-99) Mean Corpuscular Hemoglobin 30.3 PG (27.0-31.0) Mean Corpuscular Hemoglobin Concent 33.1 G/DL (32.0-36.0) Red Cell Distribution Width 14.0 % (11.6-14.8) Platelet Count 357 K/UL (150-450) Mean Platelet Volume 6.0 FL (6.5-10.1) L Neutrophils (%) (Auto) 64.8 % (45.0-75.0) Lymphocytes (%) (Auto) 23.6 % (20.0-45.0) Monocytes (%) (Auto) 7.8 % (1.0-10.0) Eosinophils (%) (Auto) 3.2 % (0.0-3.0) H Basophils (%) (Auto) 0.6 % (0.0-2.0) Sodium Level 142 MMOL/L (136-145) Potassium Level 3.9 MMOL/L (3.5-5.1) Chloride Level 104 MMOL/L (98-107) Carbon Dioxide Level 34 MMOL/L (21-32) H Anion Gap 4 mmol/L (5-15) L Blood Urea Nitrogen 8 mg/dL (7-18) Creatinine 0.6 MG/DL (0.55-1.30) Estimat Glomerular Filtration Rate > 60 mL/min (>60) Glucose Level 99 MG/DL (74-106) Calcium Level 9.5 MG/DL (8.5-10.1) Total Bilirubin 0.1 MG/DL (0.2-1.0) L Aspartate Amino Transf (AST/SGOT) 31 U/L (15-37) Alanine Aminotransferase (ALT/SGPT) 42 U/L (12-78) Alkaline Phosphatase 83 U/L (46-116) Pro-B-Type Natriuretic Peptide 925 pg/mL (0-125) H Total Protein 7.6 G/DL (6.4-8.2) Albumin 2.3 G/DL (3.4-5.0) L Globulin 5.3 g/dL Albumin/Globulin Ratio 0.4 (1.0-2.7) L Height (Feet): 5 Height (Inches): 5.00 Weight (Pounds): 189 General Appearance: no apparent distress Cardiovascular: normal rate Respiratory/Chest: other - Tracheostomy present Abdominal Exam: GT site - Clean dry and intact Alyson Hull NP December 22, 2018 09:35
--- NOTE | 2018-12-22 10:06 | Diagnostic Imaging Report ---
Indication: Dyspnea Comparison: 12/19/2018 A single view chest radiograph was obtained. Findings: Pulmonary vascular congestion demonstrated. Cardiomegaly is present. Tracheostomy noted. There is probably no change. IMPRESSION: CHF/interstitial edema.
[2018-12-22] MEDS ORDERED: LEVAQUIN750 MG ORAL (10:18)
--- NOTE | 2018-12-22 10:19 | Pulmonolgy Critical Care Note ---
Critical Care - Asmt/Plan Problems: (1) Septic shock (2) Acute on chronic respiratory failure (3) Chronic vegetative state (4) COPD (chronic obstructive pulmonary disease) (5) Seizure disorder (6) Chronic respiratory failure (7) Decubital ulcer Respiratory: monitor respiratory rate, adjust FIO2, CXR Cardiac: continue to monitor HR/BP Renal: F/U I&O, keep IV fluid, check electrolytes Infectious Disease: check cultures Gastrointestinal: continue feedings/current rate Endocrine: monitor blood sugar, check HgA1C Hematologic: transfuse if hgb<8.5 Neurologic: PRN Morphine, keep patient comfortable Affect: PRN ativan Prophylaxis: Protonix Notes Reviewed: waterworks chief engineer, cardio, renal Discussed with: nurses, consultants, case resolution specialistgeothermal production manager - Objective Last 24 Hour Vital Signs Date Time Temp Pulse Resp B/P (MAP) Pulse Ox O2 Delivery O2 Flow Rate FiO2 12/22/18 08:00 T-piece 12.0 12/22/18 08:00 12.0 40 12/22/18 08:00 98.1 70 29 128/81 (97) 95 12/22/18 07:53 72 12/22/18 07:00 T-piece 12.0 40 12/22/18 07:00 81 22 94 T-piece 12.0 40 12/22/18 07:00 94 T-piece 12.0 40 12/22/18 04:00 T-piece 12.0 12/22/18 04:00 12.0 40 12/22/18 04:00 98.1 66 28 125/74 (91) 97 12/22/18 03:23 75 12/22/18 01:00 T-piece 12.0 40 12/22/18 01:00 95 T-piece 12.0 40 12/22/18 00:00 T-piece 12.0 12/22/18 00:00 12.0 40 12/22/18 00:00 98.1 73 24 120/75 (90) 95 12/22/18 00:00 58 12/21/18 20:00 12.0 40 12/21/18 20:00 T-piece 12.0 12/21/18 19:57 98.1 64 16 98/58 (71) 93 12/21/18 19:40 T-piece 12.0 40 12/21/18 19:39 94 T-piece 12.0 40 12/21/18 19:38 72 24 95 T-piece 12.0 40 12/21/18 19:26 72 12/21/18 16:00 T-piece 12.0 12/21/18 16:00 12.0 40 12/21/18 16:00 97.5 68 26 124/77 (93) 94 12/21/18 15:24 60 12/21/18 13:16 T-piece 12.0 40 12/21/18 13:16 96 T-piece 12.0 40 12/21/18 12:00 99.6 69 25 117/71 (86) 93 12/21/18 12:00 T-piece 12.0 12/21/18 12:00 12.0 40 12/21/18 11:34 71 Status: awake Condition: critical HEENT: atraumatic Neck: full ROM Lungs: chest wall tender Abdomen: soft, non-tender, feeding tube Extremities: no C/C/E Decubiti: location Critical Care - Subjective ROS Limited/Unobtainable: No Condition: critical EKG Rhythm: Sinus Rhythm FI02: 40 Sputum Amount: Moderate Tube Feeding Amount: 60 I&O: Intake and Output 12/21/18 12/22/18 19:00 07:00 Intake Total 870 ml 735 ml Output Total 1400 ml 1200 ml Balance -530 ml -465 ml Intake Free Water 150 ml 75 ml Tube Feeding 720 ml 660 ml Output Urine Total 1400 ml 1200 ml # Bowel Movements 1 2 CXR: pulmonary edema Labs: Laboratory Tests Test 12/22/18 04:39 White Blood Count 8.6 K/UL (4.8-10.8) Red Blood Count 4.25 M/UL (4.20-5.40) Hemoglobin 12.9 G/DL (12.0-16.0) Hematocrit 38.8 % (37.0-47.0) Mean Corpuscular Volume 91 FL (80-99) Mean Corpuscular Hemoglobin 30.3 PG (27.0-31.0) Mean Corpuscular Hemoglobin Concent 33.1 G/DL (32.0-36.0) Red Cell Distribution Width 14.0 % (11.6-14.8) Platelet Count 357 K/UL (150-450) Mean Platelet Volume 6.0 FL (6.5-10.1) L Neutrophils (%) (Auto) 64.8 % (45.0-75.0) Lymphocytes (%) (Auto) 23.6 % (20.0-45.0) Monocytes (%) (Auto) 7.8 % (1.0-10.0) Eosinophils (%) (Auto) 3.2 % (0.0-3.0) H Basophils (%) (Auto) 0.6 % (0.0-2.0) Sodium Level 142 MMOL/L (136-145) Potassium Level 3.9 MMOL/L (3.5-5.1) Chloride Level 104 MMOL/L (98-107) Carbon Dioxide Level 34 MMOL/L (21-32) H Anion Gap 4 mmol/L (5-15) L Blood Urea Nitrogen 8 mg/dL (7-18) Creatinine 0.6 MG/DL (0.55-1.30) Estimat Glomerular Filtration Rate > 60 mL/min (>60) Glucose Level 99 MG/DL (74-106) Calcium Level 9.5 MG/DL (8.5-10.1) Total Bilirubin 0.1 MG/DL (0.2-1.0) L Aspartate Amino Transf (AST/SGOT) 31 U/L (15-37) Alanine Aminotransferase (ALT/SGPT) 42 U/L (12-78) Alkaline Phosphatase 83 U/L (46-116) Pro-B-Type Natriuretic Peptide 925 pg/mL (0-125) H Total Protein 7.6 G/DL (6.4-8.2) Albumin 2.3 G/DL (3.4-5.0) L Globulin 5.3 g/dL Albumin/Globulin Ratio 0.4 (1.0-2.7) L Leigh Ch MD December 22, 2018 10:19
[2018-12-22] MEDS ORDERED: Metoclopramide 10mg/2ml Inj IVP PRN (10:37)
[2018-12-22 11:50] VITALS: BP 133/56
--- NOTE | 2018-12-22 12:42 | General Progress Note ---
Assessment/Plan Problem List: (1) UTI (lower urinary tract infection) ICD Codes: N39.0 - UTI (lower urinary tract infection) SNOMED: 2543034 (2) Septic shock ICD Codes: A41.9 - Septic shock; R65.21 - Severe sepsis with septic shock SNOMED: 97718277 (3) Hypotension ICD Codes: I95.9 - Hypotension SNOMED: 54681469 (4) COPD (chronic obstructive pulmonary disease) ICD Codes: J44.9 - Chronic obstructive pulmonary disease, unspecified SNOMED: 61732660 (5) Tracheostomy dependent ICD Codes: Z93.0 - Tracheostomy dependent SNOMED: 148287197 (6) Chronic respiratory failure ICD Codes: J96.10 - Chronic respiratory failure SNOMED: 76199428 (7) Abdominal wall cellulitis ICD Codes: L03.311 - Cellulitis of abdominal wall SNOMED: 90919703 (8) Seizure disorder ICD Codes: G40.909 - Seizure disorder SNOMED: 280605506 Status: stable, progressing Assessment/Plan: vent abx wound care bp bs seizure control dc if clear Subjective Constitutional: Reports: weakness Allergies: Coded Allergies: No Known Allergies (Unverified , 04/14/14) All Systems: reviewed and negative except above Subjective trach vent altered Objective Last 24 Hour Vital Signs Date Time Temp Pulse Resp B/P (MAP) Pulse Ox O2 Delivery O2 Flow Rate FiO2 12/22/18 12:00 12.0 40 12/22/18 12:00 T-piece 12.0 12/22/18 11:50 98.1 68 23 133/56 (81) 94 12/22/18 08:00 T-piece 12.0 12/22/18 08:00 12.0 40 12/22/18 08:00 98.1 70 29 128/81 (97) 95 12/22/18 07:53 72 12/22/18 07:00 T-piece 12.0 40 12/22/18 07:00 81 22 94 T-piece 12.0 40 12/22/18 07:00 94 T-piece 12.0 40 12/22/18 04:00 T-piece 12.0 12/22/18 04:00 12.0 40 12/22/18 04:00 98.1 66 28 125/74 (91) 97 12/22/18 03:23 75 12/22/18 01:00 T-piece 12.0 40 12/22/18 01:00 95 T-piece 12.0 40 12/22/18 00:00 T-piece 12.0 12/22/18 00:00 12.0 40 12/22/18 00:00 98.1 73 24 120/75 (90) 95 12/22/18 00:00 58 12/21/18 20:00 12.0 40 12/21/18 20:00 T-piece 12.0 12/21/18 19:57 98.1 64 16 98/58 (71) 93 12/21/18 19:40 T-piece 12.0 40 12/21/18 19:39 94 T-piece 12.0 40 12/21/18 19:38 72 24 95 T-piece 12.0 40 12/21/18 19:26 72 12/21/18 16:00 T-piece 12.0 12/21/18 16:00 12.0 40 12/21/18 16:00 97.5 68 26 124/77 (93) 94 12/21/18 15:24 60 12/21/18 13:16 T-piece 12.0 40 12/21/18 13:16 96 T-piece 12.0 40 Intake and Output 12/21/18 12/22/18 19:00 07:00 Intake Total 870 ml 735 ml Output Total 1400 ml 1200 ml Balance -530 ml -465 ml Intake Free Water 150 ml 75 ml Tube Feeding 720 ml 660 ml Output Urine Total 1400 ml 1200 ml # Bowel Movements 1 2 Laboratory Tests 12/22/18 04:39: White Blood Count 8.6, Red Blood Count 4.25, Hemoglobin 12.9, Hematocrit 38.8, Mean Corpuscular Volume 91, Mean Corpuscular Hemoglobin 30.3, Mean Corpuscular Hemoglobin Concent 33.1, Red Cell Distribution Width 14.0, Platelet Count 357, Mean Platelet Volume 6.0L, Neutrophils (%) (Auto) 64.8, Lymphocytes (%) (Auto) 23.6, Monocytes (%) (Auto) 7.8, Eosinophils (%) (Auto) 3.2H, Basophils (%) (Auto ) 0.6, Sodium Level 142, Potassium Level 3.9, Chloride Level 104, Carbon Dioxide Level 34H, Anion Gap 4L, Blood Urea Nitrogen 8, Creatinine 0.6, Estimat Glomerular Filtration Rate > 60, Glucose Level 99, Calcium Level 9.5, Total Bilirubin 0.1L, Aspartate Amino Transf (AST/SGOT) 31, Alanine Aminotransferase ( ALT/SGPT) 42, Alkaline Phosphatase 83, Pro-B-Type Natriuretic Peptide 925H, Total Protein 7.6, Albumin 2.3L, Globulin 5.3, Albumin/Globulin Ratio 0.4L Height (Feet): 5 Height (Inches): 5.00 Weight (Pounds): 189 General Appearance: lethargic EENT: normal ENT inspection Neck: normal alignment Cardiovascular: normal peripheral pulses, normal rate, regular rhythm Respiratory/Chest: chest wall non-tender, lungs clear, normal breath sounds Abdomen: normal bowel sounds, non tender, soft Extremities: normal inspection Edema: no edema noted Arm (L), no edema noted Arm (R), no edema noted Leg (L), no edema noted Leg (R), no edema noted Pedal (L), no edema noted Pedal (R), no edema noted Generalized Neurologic: motor weakness Skin: normal pigmentation, warm/dry Seb Mike DO December 22, 2018 12:42
--- NOTE | 2018-12-22 14:41 | Surgery Progress Note ---
Surgery Progress Note Subjective Symptoms: improved, tolerating diet, voiding well, passing flatus, BM Additional Comments improved overall stable for d/c from surgical standpoint d/c today Objective Last 24 Hour Vital Signs Date Time Temp Pulse Resp B/P (MAP) Pulse Ox O2 Delivery O2 Flow Rate FiO2 12/22/18 12:00 12.0 40 12/22/18 12:00 T-piece 12.0 12/22/18 11:50 98.1 68 23 133/56 (81) 94 12/22/18 11:34 64 12/22/18 08:00 T-piece 12.0 12/22/18 08:00 12.0 40 12/22/18 08:00 98.1 70 29 128/81 (97) 95 12/22/18 07:53 72 12/22/18 07:00 T-piece 12.0 40 12/22/18 07:00 81 22 94 T-piece 12.0 40 12/22/18 07:00 94 T-piece 12.0 40 12/22/18 04:00 T-piece 12.0 12/22/18 04:00 12.0 40 12/22/18 04:00 98.1 66 28 125/74 (91) 97 12/22/18 03:23 75 12/22/18 01:00 T-piece 12.0 40 12/22/18 01:00 95 T-piece 12.0 40 12/22/18 00:00 T-piece 12.0 12/22/18 00:00 12.0 40 12/22/18 00:00 98.1 73 24 120/75 (90) 95 12/22/18 00:00 58 12/21/18 20:00 12.0 40 12/21/18 20:00 T-piece 12.0 12/21/18 19:57 98.1 64 16 98/58 (71) 93 12/21/18 19:40 T-piece 12.0 40 12/21/18 19:39 94 T-piece 12.0 40 12/21/18 19:38 72 24 95 T-piece 12.0 40 12/21/18 19:26 72 12/21/18 16:00 T-piece 12.0 12/21/18 16:00 12.0 40 12/21/18 16:00 97.5 68 26 124/77 (93) 94 12/21/18 15:24 60 I&O Intake and Output 12/21/18 12/22/18 19:00 07:00 Intake Total 870 ml 735 ml Output Total 1400 ml 1200 ml Balance -530 ml -465 ml Intake Free Water 150 ml 75 ml Tube Feeding 720 ml 660 ml Output Urine Total 1400 ml 1200 ml # Bowel Movements 1 2 Dressing: saturated Wound: clean Drains: other Cardiovascular: RSR Respiratory: clear Abdomen: soft, present bowel sounds, other, non-distended Extremities: no cyanosis Laboratory Tests Test 12/22/18 04:39 White Blood Count 8.6 K/UL (4.8-10.8) Red Blood Count 4.25 M/UL (4.20-5.40) Hemoglobin 12.9 G/DL (12.0-16.0) Hematocrit 38.8 % (37.0-47.0) Mean Corpuscular Volume 91 FL (80-99) Mean Corpuscular Hemoglobin 30.3 PG (27.0-31.0) Mean Corpuscular Hemoglobin Concent 33.1 G/DL (32.0-36.0) Red Cell Distribution Width 14.0 % (11.6-14.8) Platelet Count 357 K/UL (150-450) Mean Platelet Volume 6.0 FL (6.5-10.1) L Neutrophils (%) (Auto) 64.8 % (45.0-75.0) Lymphocytes (%) (Auto) 23.6 % (20.0-45.0) Monocytes (%) (Auto) 7.8 % (1.0-10.0) Eosinophils (%) (Auto) 3.2 % (0.0-3.0) H Basophils (%) (Auto) 0.6 % (0.0-2.0) Sodium Level 142 MMOL/L (136-145) Potassium Level 3.9 MMOL/L (3.5-5.1) Chloride Level 104 MMOL/L (98-107) Carbon Dioxide Level 34 MMOL/L (21-32) H Anion Gap 4 mmol/L (5-15) L Blood Urea Nitrogen 8 mg/dL (7-18) Creatinine 0.6 MG/DL (0.55-1.30) Estimat Glomerular Filtration Rate > 60 mL/min (>60) Glucose Level 99 MG/DL (74-106) Calcium Level 9.5 MG/DL (8.5-10.1) Total Bilirubin 0.1 MG/DL (0.2-1.0) L Aspartate Amino Transf (AST/SGOT) 31 U/L (15-37) Alanine Aminotransferase (ALT/SGPT) 42 U/L (12-78) Alkaline Phosphatase 83 U/L (46-116) Pro-B-Type Natriuretic Peptide 925 pg/mL (0-125) H Total Protein 7.6 G/DL (6.4-8.2) Albumin 2.3 G/DL (3.4-5.0) L Globulin 5.3 g/dL Albumin/Globulin Ratio 0.4 (1.0-2.7) L Plan Problems: (1) Lactic acid acidosis (2) UTI (lower urinary tract infection) (3) Septic shock Assessment & Plan: diffuse rash noted on arms, trunk legs abdominal wall superficial cellulitis leukocytosis - resolved fevers - resolved micro noted No acute surgical intervention planned IV abx trend labs will follow with exam and recs thank you (4) Pneumonia (5) Hypothyroidism (6) Hypotension (7) Acute on chronic respiratory failure (8) Hypernatremia (9) Hypokalemia (10) COPD (chronic obstructive pulmonary disease) (11) Seizure disorder (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 Full thickness pressure injury sacrococcygeal area. Base of wound pale with callused borders.Non-blanchable erythema periwound with additional partial thickness shearing..(L)1cm x (W)0.6cm x (D)0.2cm. Unstageable pressure injury R buttocks.Base of wound has 80% mixed necrosis / slough,20% viable. Clockwise at 6o'clock an area of induration noted.Small amt seropurulent exudate noted. No odor noted. (L)9 cm x (W)7cm. Periwound indurated with non-blanchable erythema with additional partial thickness wounds. Full thickness pressure injury noted to L buttocks.Base of wound is viable with trace amt of biofilm,(+) maceration along borders. (L)1.4cm x (W)1cm x (D) 0.2cm. Non-blanchable erythema with shearing periwound. Shearing with multiple small partial thickness wounds ,and surrounding darker skin tone without induration noted to R and L ischial areas. Tx.Plan: Cleanse wounds Sacrococcygeal, R and L buttocks with Saline. Apply Therhaoney to each wound.Apply Triad Paste periwound. Cover with Optifoam drsgs. Apply Triad Paste to R and L ischium with each incontinence care. Apply Cavilon Skin Barrier to R and L heels. Ciover each heel with Optifoam drsg. Change every 7 days and prn. APM/JANINE Mattress overlay Reposition at least every 2hours or as tolerated. Off-load heels with pillow. (14) Abdominal wall cellulitis (15) Pressure ulcer (16) Chronic respiratory failure (17) Severe sepsis Lazaro Hodges December 22, 2018 14:41
--- NOTE | 2018-12-22 21:02 | Cardiology Progress Note ---
Assessment/Plan Assessment/Plan 1. Septic shock, resolved, echo shows normal LVEF. Consider aspirin and statin for cardiovascular protection. 2. Rash/abdominal wall cellulitis, on IV ABx. 3. History of diabetes mellitus. Consider aspirin and statin, although may not change the outcome of this patient with chronic illness. 4. Ventilatory-drive respiratory failure, status post tracheostomy tube placement. 5. Dysphagia, status post PEG placement with malfunction. Subjective Subjective Sinus rhythm at the rate of 68. Objective Last 24 Hour Vital Signs Date Time Temp Pulse Resp B/P (MAP) Pulse Ox O2 Delivery O2 Flow Rate FiO2 12/22/18 12:00 12.0 40 12/22/18 12:00 T-piece 12.0 12/22/18 11:50 98.1 68 23 133/56 (81) 94 12/22/18 11:34 64 12/22/18 08:00 T-piece 12.0 12/22/18 08:00 12.0 40 12/22/18 08:00 98.1 70 29 128/81 (97) 95 12/22/18 07:53 72 12/22/18 07:00 T-piece 12.0 40 12/22/18 07:00 81 22 94 T-piece 12.0 40 12/22/18 07:00 94 T-piece 12.0 40 12/22/18 04:00 T-piece 12.0 12/22/18 04:00 12.0 40 12/22/18 04:00 98.1 66 28 125/74 (91) 97 12/22/18 03:23 75 12/22/18 01:00 T-piece 12.0 40 12/22/18 01:00 95 T-piece 12.0 40 12/22/18 00:00 T-piece 12.0 12/22/18 00:00 12.0 40 12/22/18 00:00 98.1 73 24 120/75 (90) 95 12/22/18 00:00 58 Intake and Output 12/21/18 12/22/18 18:59 06:59 Intake Total 900 ml 795 ml Output Total 1400 ml 1200 ml Balance -500 ml -405 ml Intake Free Water 180 ml 75 ml Tube Feeding 720 ml 720 ml Output Urine Total 1400 ml 1200 ml # Bowel Movements 1 2 2D Echo: LVEf 65%, RVSP 17 mmHg, Normal LVD Fxn, RAP 10 mmHg, Mild MR. Laboratory Tests Test 12/22/18 04:39 White Blood Count 8.6 K/UL (4.8-10.8) Red Blood Count 4.25 M/UL (4.20-5.40) Hemoglobin 12.9 G/DL (12.0-16.0) Hematocrit 38.8 % (37.0-47.0) Mean Corpuscular Volume 91 FL (80-99) Mean Corpuscular Hemoglobin 30.3 PG (27.0-31.0) Mean Corpuscular Hemoglobin Concent 33.1 G/DL (32.0-36.0) Red Cell Distribution Width 14.0 % (11.6-14.8) Platelet Count 357 K/UL (150-450) Mean Platelet Volume 6.0 FL (6.5-10.1) L Neutrophils (%) (Auto) 64.8 % (45.0-75.0) Lymphocytes (%) (Auto) 23.6 % (20.0-45.0) Monocytes (%) (Auto) 7.8 % (1.0-10.0) Eosinophils (%) (Auto) 3.2 % (0.0-3.0) H Basophils (%) (Auto) 0.6 % (0.0-2.0) Sodium Level 142 MMOL/L (136-145) Potassium Level 3.9 MMOL/L (3.5-5.1) Chloride Level 104 MMOL/L (98-107) Carbon Dioxide Level 34 MMOL/L (21-32) H Anion Gap 4 mmol/L (5-15) L Blood Urea Nitrogen 8 mg/dL (7-18) Creatinine 0.6 MG/DL (0.55-1.30) Estimat Glomerular Filtration Rate > 60 mL/min (>60) Glucose Level 99 MG/DL (74-106) Calcium Level 9.5 MG/DL (8.5-10.1) Total Bilirubin 0.1 MG/DL (0.2-1.0) L Aspartate Amino Transf (AST/SGOT) 31 U/L (15-37) Alanine Aminotransferase (ALT/SGPT) 42 U/L (12-78) Alkaline Phosphatase 83 U/L (46-116) Pro-B-Type Natriuretic Peptide 925 pg/mL (0-125) H Total Protein 7.6 G/DL (6.4-8.2) Albumin 2.3 G/DL (3.4-5.0) L Globulin 5.3 g/dL Albumin/Globulin Ratio 0.4 (1.0-2.7) L Objective HEENT: Atraumatic and normocephalic. Anicteric. Pupils are equal, round, and reactive to light and accommodation. NECK: JVP cannot be assessed due to obesity and short neck and presence of a tracheostomy tube. CARDIOVASCULAR: Normal S1, S2. Regular rate and rhythm. No murmurs, gallops, or rubs. LUNGS: Rhonchi bilaterally. ABDOMEN: Obese. Presence of PEG. Erythematous skin of abdominal wall. EXTREMITIES: No evidence of edema, clubbing, or cyanosis. Vaughn Sahu MD December 22, 2018 21:02
--- NOTE | 2018-12-25 09:06 | Discharge Summary ---
Discharge Summary Discharge Summary _ DATE OF ADMISSION: 12/15/2018 DATE OF DISCHARGE: 12/22/2018 DISCHARGED BY: Dr Mike REASON FOR ADMISSION: 63 years old female with past medical history of chronic respiratory failure, tracheostomy status, anoxic encephalopathy, history of traumatic brain injury, status post craniotomy, hypothyroidism, history of CVA, seizure disorder, dysphagia, G-tube, was brought by ambulance due to fever , abdominal wall and bilateral lower extremity redness . Upon evaluation in the emergency department patient had low-grade fever, was tachypneic and hypotensive. Central line was placed in anticipation for pressors. Laboratory work-up revealed leukocytosis with WBC 18.2, stable hemoglobin and hematocrit. ABG was stable on current FiO2 via T-piece. Sodium 131. Phosphorus 2.1. Stable renal parameters Troponin negative. pro BNP 360. Albumin 2.4. Urinalysis revealed +3 protein, but no evidence of UTI. Phenobarbital level was therapeutic. Chest x-ray demonstrated mild basal atelectasis. CT of the abdomen and pelvis demonstrated patchy posterior basilar consolidation , probably pneumonia. Small bilateral pleural effusion. Gastrostomy in good position. Question of tiny gallstone. Patient was started on pressors and subsequently admitted to ICU for further management. CONSULTANTS: patient services clerk Dr. Rodriguez pulmonary Dr. Ch ID specialist Dr. De Santiago GI specialist [facility]. Quinn [facility] COURSE: Patient initially required pressors: Dopamine and Levophed. Hand Pleater closely followed. Hemodynamic status was closely monitored with goal to keep mean arterial blood pressure above 65. Patient was started on midodrine and was able to be weaned from pressors. Septic shock resolved. Patient subsequently was transferred to [facility]. Echocardiogram revealed preserved ejection fraction of 65 to 70%. No evidence of left ventricular hypertrophy. No evidence of wall motion abnormality. Right ventricular systolic pressure of 18. Hand Pleater started patient on antiplatelet therapy with aspirin and statin. Net Programmer closely followed. Tracheostomy care provided. FiO2 via T-piece titrated to keep pulse oximetry above 92%. Patient was followed -up with chest x-ray. DVT prophylaxis provided. Strict aspiration precautions were maintained. G-tube feedings were continued. Patient initially started on empiric antibiotics. ID specialist follow. Blood culture initially revealed 1 out of 4 Staphylococci coagulase-negative. Gram-positive bacteremia was likely contaminant as per ID specialist. Repeated blood culture on 12/17 were negative. Sputum culture showed growth of Pseudomonas aeruginosa and Stenotrophomonas maltophilia. Urine culture was negative. Antibiotic regimen was optimized as per ID specialist recommendation. Leukocytosis and low-grade fevers resolved. Infectious disease specialist recommended to switch IV antibiotics to oral to complete the course at the facility. Patient with irregular blanching erythema /erythematous rash in lower extremity and lower abdomen. Possible erysipelas versus abdominal wall cellulitis. Dermatological rash (not infectious) Surgeon followed for multiply decubitus ulcers/pressure injury, present on admission. Wound care for multiple decubitus ulcers/pressure injury as well as the diffuse erythematous rash on the abdomen and bilateral tibia, provided as per surgeon recommendation. Continue wound care at the facility. GI specialist consulted for leaking PEG. G-tube was replaced at the bedside. G-tube site care provided daily and on as needed basis with zinc oxide around the G-tube site. Patient was restarted on G-tube feeding as per ornamental bronze worker recommendation in terms of goal rate and type of tube feedings. Protein supplements implemented in plan of care. Strict aspiration precaution maintained. Patient was able to tolerate tube feeding. Hemoglobin and hematocrit remained stable. Prior to discharge hemoglobin 12.9, hematocrit 38.8. Reglan started as needed to promote GI motility. GI prophylaxis provided. Seizure precaution maintained. Dilantin continued. No evidence of seizure activity while in the hospital. Levothyroxine continued. Blood sugar was closely monitored and remained stable. Renal parameters and electrolytes were closely monitored. Electrolytes corrected as needed. Prior to discharge all electrolytes stable. Supportive care provided. Bowel regimen instituted. Patient clinically stabilized and was ready for transfer back to long-term facility for continuation of care. FINAL DIAGNOSES: Septic shock with sepsis likely due to pneumonia Pneumonia with Pseudomonas and Stenotrophomonas Acute on chronic respiratory failure Tracheostomy dependent Abdominal wall cellulitis Possible erysipelas Anoxic encephalopathy COPD Dysphagia Leaking PEG, s/p G tube replacement Chronic vegetative state Diabetes mellitus type 2 Seizure disorder Anemia History of CVA Hypothyroidism Multiple pressure ulcers, present on admission DISCHARGE MEDICATIONS: See Medication Reconciliation list. DISCHARGE INSTRUCTIONS: Patient was discharged to the long-term facility. Follow up with medical doctor at the facility. I have been assigned to dictate discharge summary for this account. I was not involved in the patient's management. Zuleima Harding NP December 25, 2018 09:05
== END 2018-12-22 13:39 | DRG 720 ==
LOC: EDBD 12:00 → EDBEDREQ 12:27 → EMR 12:40 → ICU 12:51 → EDBEDREQ 13:41 → ICU 15:38 → 2W 12-20 19:53
DX: A41.52 Sepsis due to Pseudomonas (principal); J96.20 Acute and chronic respiratory failure, unspecified whether with hypoxia or hypercapnia; R65.21 Severe sepsis with septic shock; J15.1 Pneumonia due to Pseudomonas; E46 Unspecified protein-calorie malnutrition; G93.1 Anoxic brain damage, not elsewhere classified; L89.150 Pressure ulcer of sacral region, unstageable; Z93.0 Tracheostomy status; L89.329 Pressure ulcer of left buttock, unspecified stage; L89.319 Pressure ulcer of right buttock, unspecified stage; R40.3 Persistent vegetative state; L03.311 Cellulitis of abdominal wall; K94.23 Gastrostomy malfunction; J44.0 Chronic obstructive pulmonary disease with (acute) lower respiratory infection; N39.0 Urinary tract infection, site not specified; E03.9 Hypothyroidism, unspecified; E87.0 Hyperosmolality and hypernatremia; E87.6 Hypokalemia; R13.10 Dysphagia, unspecified; A46 Erysipelas; Z68.31 Body mass index [BMI] 31.0-31.9, adult
CPT/HCPCS: 36415; 36600; 71045; 74177; 80048; 80053; 80150; 80184; 80202; 81003; 82164; 82550; 82553; 82803; 83605; 83735; 83880; 84100; 84484; 85007; 85025; 85610; 85730; 86710; 87040; 87070; 87081; 87086; 87181; 87205; 93005; 93306; 94640; 94664; 94760; 96365; 96366; 96367; 96368; 99291; J2405; J7620; J8499